=== PATIENT | female | born 1985 | race African-American/Black ===

== ENCOUNTER 2018-02-21 12:53 | Emergency (ER) | payer OTHER ==
[2018-02-21 13:15] VITALS: BMI 37.5
--- NOTE | 2018-02-21 13:50 | PDOC ---
History of Present Illness - General Chief Complaint: Chest Pain Stated Complaint: CHEST PAIN Time Seen by Provider: 02/21/18 13:26 History Source: Patient Exam Limitations: No Limitations - History of Present Illness Initial Comments: This is a 32 YOF with h/o prior DVT and asthma who p/w sharp chest pain coming in short-lived twinges, too many episodes to count, for the past two days, with associated rapid palpitations. The pain twinges come on at random times throughout the day and are not made better or worse by activity, laying down flat, rest, or other factors. She denies any SOB, lightheadedness, GARCÍA, n/t/ focal weakness, f/c/n/v/d/c, abdominal pain, leg pain/swelling, skin changes, strange taste in her mouth, or other symptoms. She has never had symptoms like this before. She was seen at the [facility] ED yesterday, had labs and an EKG , and was discharged home per her report. She is not on OCPs or exogenous estrogen and her LMP was in December 2017 (states she is very irregular). She is not sexually active over the past month or so. She denies recent surgery, immobility , illness, hemoptysis, or other risk factors. Past History - Past Medical History Allergies/Adverse Reactions: Allergies Allergy/AdvReac Type Severity Reaction Status Date / Time iodine Allergy Mild Hives Verified 02/21/18 13:15 seafood Allergy Mild Hives Uncoded 02/21/18 13:15 Home Medications: Ambulatory Orders Topiramate [Topamax] 25 mg PO HS 02/21/18 Topiramate [Topamax] 100 mg PO DAILY 02/21/18 COPD: No Other medical history: brain aneursym - Suicide/Smoking/Psychosocial Hx Smoking History: Never smoked Have you smoked in the past 12 months: No Information on smoking cessation initiated: No Hx Alcohol Use: No Drug/Substance Use Hx: No Substance Use Type: None Review of Systems - Review of Systems Able to Perform ROS?: Yes Constitutional: No: Chills, Fever, Unexplained wgt Loss HEENTM: No: Nose Congestion, Throat Pain Respiratory: No: Cough, Shortness of Breath Cardiac (ROS): Yes: Chest Pain, Palpitations. No: Edema, Lightheadedness, Syncope ABD/GI: No: Constipated, Diarrhea, Nausea, Vomiting : No: Burning, Dysuria Musculoskeletal: Yes: Other (no leg swelling, no leg pain). No: Back Pain, Neck Pain Integumentary: No: Bruising, Rash Neurological: No: Headache, Numbness, Tingling, Weakness, Dizziness Endocrine: No: Unexplained Weight Gain, Unexplained Weight Loss *Physical Exam - Vital Signs Last Vital Signs Temp Pulse Resp BP Pulse Ox 98.7 F 72 20 124/73 99 02/21/18 19:35 02/21/18 19:35 02/21/18 19:35 02/21/18 19:35 02/21/18 19:35 - Physical Exam General Appearance: Yes: Nourished, Appropriately Dressed, Other (awake, alert, nontoxic, well appearing, answering questions appropriately, intermittently tearful). No: Apparent Distress HEENT: positive: EOMI, GE, Normal Voice, Hearing Grossly Normal. negative: Scleral Icterus (R), Scleral Icterus (L), Nasal Congestion Neck: positive: Trachea midline, Supple. negative: Tender, Rigid Respiratory/Chest: positive: Lungs Clear, Normal Breath Sounds. negative: Respiratory Distress, Crackles, Rhonchi, Stridor, Wheezing Cardiovascular: positive: Regular Rhythm, Regular Rate, S1, S2. negative: Edema , JVD, Murmur Gastrointestinal/Abdominal: positive: Normal Bowel Sounds, Soft. negative: Tender, Organomegaly, Pulsatile Mass, Guarding Musculoskeletal: positive: Normal Inspection. negative: Decreased Range of Motion, Vertebral Tenderness Extremity: positive: Normal Capillary Refill, Normal Inspection, Normal Range of Motion, Other (no calf circumference difference [id number], no palpable cord, no skin changes). negative: Tender, Cyanosis, Swelling, Calf Tenderness Integumentary: positive: Normal Color, Dry, Warm. negative: Erythema, Rash, Bruising Neurologic: positive: sql consultant II-XII NML intact, Fully Oriented, Alert, Normal Mood/ Affect, Normal Response, Motor Strength 5/5. negative: EOM Palsy, Facial Droop , Numbness, Sensory Deficit, Confused, Disoriented Heart Score/ECG Review #1 NSR, rate of 75, normal axis and intervals, no ST-T changes ED Treatment Course - LABORATORY CBC & Chemistry Diagram: 02/21/18 14:44 02/21/18 14:44 - ADDITIONAL ORDERS Additional order review: 02/21/18 14:44 RBC 5.27 H MCV 68.8 L MCHC 31.3 L RDW 14.3 MPV 10.4 Neutrophils % 70.6 Lymphocytes % 22.5 Monocytes % 6.7 Eosinophils % 0.1 Basophils % 0.1 - RADIOLOGY Radiology Studies Ordered: Category Date Time Status CHEST CTA [CT] Stat CT Scan 02/21/18 16:49 Completed DUPLEX VASCUL US-2LEGS [US] Stat Ultrasound 02/21/18 16:49 Completed - Medications Given in the ED: ED Medications Discontinued Medications Generic Name Dose Route Start Last Admin Trade Name Freq PRN Reason Stop Dose Admin Al Hydroxide/Mg Hydroxide 30 ml 02/21/18 14:58 02/21/18 15:16 Mylanta Oral Suspension - PO 02/21/18 14:59 30 ml ONCE ONE Administration Diphenhydramine HCl 50 mg 02/21/18 16:48 02/21/18 17:18 Benadryl Injection - IVPUSH 02/21/18 16:49 50 mg ONCE ONE Administration Famotidine/Sodium Chloride 20 50 mls @ 100 mls/hr 02/21/18 14:58 02/21/18 15: 16 mg/ Miscellaneous IVPB 02/21/18 15:27 100 mls/hr ONCE ONE Administration Ibuprofen 800 mg 02/21/18 20:36 02/21/18 20:45 Motrin - PO 02/21/18 20:37 800 mg ONCE ONE Administration Sodium Chloride 1,000 ml 02/21/18 14:04 02/21/18 14:58 Normal Saline - IV 02/21/18 14:05 1,000 ml ONCE ONE Administration Medical Decision Making - Medical Decision Making Adult female Pt with h/o multiple leg blood clots p/w chest pain. Initial Vital Signs Temp Pulse Resp BP Pulse Ox 98.3 F 83 17 110/68 100 02/21/18 13:10 02/21/18 13:10 02/21/18 13:10 02/21/18 13:10 02/21/18 13:10 Exam: As noted in Physical Exam section. DDX IBNLT: PE, ACS, pericarditis, tamponade, aortic dissection, AAA, PTX, esophageal tear, esophagitis (e.g. pill, infectious), esophageal stricture, esophageal FB, gastritis, PUD, pancreatitis, cholecystitis, cholangitis, colitis , bowel perforation, PNA/bronchitis, pleurisy, pleuritis, MVP, pulmonary HTN, musculoskeletal, panic/anxiety, etc. W/U ordered: CBCD CMP Mg Phos Lipase Troponin CK CKMB Coags T&S Blood gas UA UCx EKG CXR. TX ordered: Motrin, Maalox, Pepcid, IVF, Benadryl PE is less likely as patient has no hypoxia or tachycardia or SOB. HOWEVER given her reported prior h/o DVT she is appropriate for D-dimer, reassessment, considering chest CTA, EKG: Reviewed; results as noted in ECG Review section. Laboratory Tests 02/21/18 02/21/18 02/21/18 14:44 14:44 14:44 WBC 13.9 H RBC 5.27 H Hgb 11.3 Hct 36.3 MCV 68.8 L MCH 21.5 L MCHC 31.3 L RDW 14.3 Plt Count 180 MPV 10.4 Absolute Neuts (auto) 9.8 Neutrophils % 70.6 Lymphocytes % 22.5 Monocytes % 6.7 Eosinophils % 0.1 Basophils % 0.1 Nucleated RBC % 0 PT with INR INR D-Dimer Sodium 145 Potassium 4.6 Chloride 114 H Carbon Dioxide 21 Anion Gap 10 BUN 17 Creatinine 0.8 Creat Clearance w eGFR > 60 Random Glucose 143 H Calcium 8.9 Phosphorus 2.9 Total Bilirubin 0.3 AST 25 ALT 40 Alkaline Phosphatase 138 H Creatine Kinase 209 H Creatine Kinase Index 0.7 CK-MB (CK-2) 1.66 Troponin I < 0.02 B-Natriuretic Peptide 13.56 Total Protein 6.7 Albumin 3.3 L Lipase 131 Serum , Qual Blood Type Antibody Screen 02/21/18 02/21/18 02/21/18 14:44 14:44 14:44 WBC RBC Hgb Hct MCV MCH MCHC RDW Plt Count MPV Absolute Neuts (auto) Neutrophils % Lymphocytes % Monocytes % Eosinophils % Basophils % Nucleated RBC % PT with INR INR D-Dimer 991 H Sodium Potassium Chloride Carbon Dioxide Anion Gap BUN Creatinine Creat Clearance w eGFR Random Glucose Calcium Phosphorus Total Bilirubin AST ALT Alkaline Phosphatase Creatine Kinase Creatine Kinase Index CK-MB (CK-2) Troponin I B-Natriuretic Peptide Total Protein Albumin Lipase Serum , Qual Negative Blood Type A POSITIVE Antibody Screen Negative 02/21/18 16:10 WBC RBC Hgb Hct MCV MCH MCHC RDW Plt Count MPV Absolute Neuts (auto) Neutrophils % Lymphocytes % Monocytes % Eosinophils % Basophils % Nucleated RBC % PT with INR 12.20 INR 1.08 D-Dimer Sodium Potassium Chloride Carbon Dioxide Anion Gap BUN Creatinine Creat Clearance w eGFR Random Glucose Calcium Phosphorus Total Bilirubin AST ALT Alkaline Phosphatase Creatine Kinase Creatine Kinase Index CK-MB (CK-2) Troponin I B-Natriuretic Peptide Total Protein Albumin Lipase Serum , Qual Blood Type Antibody Screen D-dimer is elevated and thus patient needs chest CTA. Duplex BLE: no e/o DVT. Chest CTA: Nothing acute, no e/o PE. Reassessment: Exam benign, pain improved, patient wants to go home. Vital Signs Temperature 98.7 F 02/21/18 19:35 Pulse Rate 72 02/21/18 19:35 Respiratory Rate 20 02/21/18 19:35 Blood Pressure 124/73 02/21/18 19:35 O2 Sat by Pulse Oximetry (%) 99 02/21/18 19:35 DISCHARGE Cardiac enzymes are negative. On last reassessment VS are stable, Pts pain is resolved, and exam is benign. The Pts HEART score indicates they are low risk and do not require admission currently. Chest CTA is negative and Duplex BLE is negative. The Pt is appropriate for discharge with close outpatient follow up. They are comfortable with this plan and will follow up with their PCP in 1-3 days. Specific return precautions are discussed and they will come back to the ER if necessary. *DC/Admit/Observation/Transfer Diagnosis at time of Disposition: Chest pain Qualifiers: Chest pain type: unspecified Qualified Code(s): R07.9 - Chest pain, unspecified - Discharge Dispostion Disposition: HOME Condition at time of disposition: Stable Decision to Admit order: No - Referrals Referrals: Gavin Roque MD [Primary Care Provider] - - Patient Instructions Printed Discharge Instructions: DI for Chest Pain Additional Instructions: You were seen in the ER for chest pain. We did lab work on your blood and urine , an electrocardiogram, a leg ultrasound, and a chest CT scan, and we did not find any concerning abnormalities. Your symptoms improved with the medications we gave you in the ER. After our assessment, we do not believe you are having a medical emergency at this time, and we believe you are safe to go home. Take over the counter pain medications for your pain, as instructed on the medication label. Please follow up with your regular PCP doctor in 1-3 days. Call their clinic as soon as possible, tell them you were seen in the ER, and tell them you need an appointment. If you have any new or worsening symptoms, especially worsening chest pain, jaw pain, shoulder/arm pain, shortness of breath, sweats, nausea, loss of consciousness, palpitations, or other symptoms, please come back to the ER at any time (24 hours a day). If you are having severe or life threatening symptoms, or symptoms that make it unsafe to drive or have someone drive you, please call 911. - Post Discharge Activity
[2018-02-21] MEDS ORDERED: SODIUM CHLORIDE 0.9% 500 ML INFUS.BAG IV ONE (14:04)
--- NOTE | 2018-02-21 14:10 | PDOC ---
Attending Attestation - Resident Resident Name: Jazzy Metcalf - ED Attending Attestation I have performed the following: I have examined & evaluated the patient, The case was reviewed & discussed with the resident, I agree w/resident's findings & plan, Exceptions are as noted - HPI HPI: 02/21/18 14:09 32y F hx of remote DVT, asthma, presents with substernal cp, sharp, nonradiating , for the past 2-3 days. Pt deneis any fever/chills, cough, hemoptysis, leg swelling, leg pain, recent trauma, surgeries, extended travel, exogenous steroid use. Pt notes she went to another hosptial and had labs and ekg/cxr that was negative and was discharged home. Pt returns today because she is not feeling any better and notes it was difficult to sleep due to her tossing and turning. GENERAL: The patient is awake, alert, and fully oriented, Nontoxic - in no acute distress. HEAD: Normocephalic, atraumatic. EYES: extraocular movements intact, sclera anicteric, conjunctiva clear. ENT: Normal voice, Moist mucous membranes. NECK: Normal range of motion, supple LUNGS: Breath sounds equal, clear to auscultation bilaterally. No wheezes, no rhonchi, no rales. HEART: Regular rate and rhythm, normal S1 and S2 without murmur, rub or gallop. ABDOMEN: Soft, nontender, normoactive bowel sounds. No guarding, no rebound. . No CVA tenderness EXTREMITIES: Normal range of motion, no edema. Negative Homans sign, no calf tenderness. NEUROLOGICAL: No facial assymetry, Normal speech, PSYCH: Normal mood, normal affect. SKIN: Warm, Dry, normal turgor, Differential for the patient's symptoms includes possible muscular pain, gastritis, PE Pts PE risk is low per wells crtiera (+hx of DVT, 1.5pts) will obtain screening ddimer will obtain cxr, ekg, labs will reassess - Physicial Exam PE: 02/22/18 09:25 see abve - Medical Decision Making 02/21/18 15:27 pts dimer elevated to 900s will obtain CTA to r/o PE pt resting comfortably in stretcher 02/21/18 19:27 pts CTA negative for PE will dc the pt with pmd fu return precautions were discussed Heart Score/ECG Review - ECG Impressions Comment:: 02/21/18 15:45 Twelve-lead EKG was performed and reviewed by me. There is normal sinus rhythm with a normal rate. rate of 75 The axis is normal. The intervals are normal. There is normal R wave progression There are no ST or T wave abnormalities. Impression: Normal twelve-lead EKG
[2018-02-21] MEDS ORDERED: MAG HYDROX/AL HYDROX/SIMETH 30 ML UNIT-DOSE CUP PO ONE (14:58)
[2018-02-21] MEDS ORDERED: FAMOTIDINE 20 MG/50 ML IVPB 20 MG in PREMIX 50 IVPB ONE (14:58)
[2018-02-21] MEDS ORDERED: FAMOTIDINE 20 MG/50 ML IVPB 20 MG/50 ML MG IVPB ONE (15:17)
[2018-02-21] MEDS ORDERED: MAG HYDROX/AL HYDROX/SIMETH 30 ML UNIT-DOSE CUP ONE (15:17)
[2018-02-21 15:33] LABS: BASO % 0.1 % (0-2.0); EOS % 0.1 % (0-4.5); HEMATOCRIT 36.3 % (32.4-45.2); HEMOGLOBIN 11.3 GM/dL (10.7-15.3); LYMPH % 22.5 % (8-40); MCH 21.5 pg (25.7-33.7); MCHC 31.3 g/dl (32.0-36.0); MEAN CELL VOLUME 68.8 fl (80-96); MEAN PLT VOLUME 10.4 fl (7.5-11.1); MONO % 6.7 % (3.8-10.2); NEUT % 70.6 % (42.8-82.8); PLATELET COUNT 180 K/MM3 (134-434); RBC 5.27 M/mm3 (3.60-5.2); RDW 14.3 % (11.6-15.6); WHITE BLOOD COUNT 13.9 K/mm3 (4.0-10.0)
[2018-02-21 16:06] LABS: ALBUMIN 3.3 g/dl (3.4-5.0); ANION GAP 10 (8-16); BILIRUBIN,TOTAL 0.3 mg/dL (0.2-1.0); BLOOD UREA NITROGEN 17 mg/dL (7-18); CALCIUM 8.9 mg/dL (8.5-10.1); CHLORIDE 114 mmol/L (98-107); CO2 21 mmol/L (21-32); CREATININE 0.8 mg/dL (0.55-1.02); GLUCOSE,RANDOM 143 mg/dL (74-106); LIPASE 131 U/L (73-393); PHOSPHOROUS 2.9 mg/dL (2.5-4.9); SGPT/ALT 40 U/L (12-78); SODIUM 145 mmol/L (136-145); TOT PROT 6.7 g/dl (6.4-8.2)
[2018-02-21 16:07] LABS: ALK PHOS 138 U/L (45-117)
[2018-02-21 16:20] LABS: POTASSIUM 4.6 mmol/L (3.5-5.1); SGOT/AST 25 U/L (15-37)
[2018-02-21 16:25] LABS: N-TERMINAL BNP 13.56 pg/ml (5-125)
[2018-02-21 16:29] LABS: INR 1.08 (0.82-1.09); PROTHROMBIN TIME (PATIENT) 12.2 SEC (9.7-13.0)
[2018-02-21 19:36] VITALS: BP 124/73; PULSE 72; TEMP 98.7
[2018-02-21] MEDS ORDERED: IBUPROFEN 400 MG TABLET (FP) PO ONE ×2 (20:36→20:42)
--- NOTE | 2018-02-22 08:34 | EKG ---
Test Reason : Blood Pressure : / mmHG Vent. Rate : 075 BPM Atrial Rate : 075 BPM P-R Int : 142 ms QRS Dur : 078 ms QT Int : 394 ms P-R-T Axes : 039 010 027 degrees QTc Int : 439 ms NORMAL SINUS RHYTHM NORMAL ECG NO PREVIOUS ECGS AVAILABLE Confirmed by JACKIE HERRERA MD ([id number]) on 02/22/2018 8:34:18 AM Referred By: Confirmed By:JACKIE HERRERA MD
== END 2018-02-21 20:53 | disposition home or self-care (01) ==
LOC: JERFT 12:53 → JER 12:53
PROC: 3E033GC Introduction of Other Therapeutic Substance into Peripheral Vein, Percutaneous Approach (ICD-10-PCS; principal; 2018-02-21)
PROC: 3E033GC Introduction of Other Therapeutic Substance into Peripheral Vein, Percutaneous Approach (ICD-10-PCS; 2018-02-21)
DX: R07.9 Chest pain, unspecified (principal); Z86.718 Personal history of other venous thrombosis and embolism; Z86.79 Personal history of other diseases of the circulatory system
CPT/HCPCS: 36415; 71275-TC; 80053; 82550; 82553; 83690; 83880; 84100; 84484; 84703; 85025; 85379; 85610; 86850; 86900; 86901; 93005; 93010; 93970-TC; 96365; 96375; 99285-25

== ENCOUNTER 2018-12-13 21:58 | Emergency (ER) | payer OTHER ==
[2018-12-13 22:07] VITALS: BP 131/82; PULSE 80; TEMP 97.6; BMI 37.5
[2018-12-13] MEDS ORDERED: IBUPROFEN 400 MG TABLET (FP) PO ONE ×2 (22:10→22:17)
--- NOTE | 2018-12-13 22:21 | PDOC ---
History of Present Illness - General Chief Complaint: Injury Stated Complaint: FELL IN TUB Time Seen by Provider: 12/13/18 22:05 History Source: Patient - History of Present Illness Occurred: reports: this evening Pain Location: reports: back, face Method of Injury: Yes: fall Past History - Past Medical History Allergies/Adverse Reactions: Allergies Allergy/AdvReac Type Severity Reaction Status Date / Time iodine Allergy Mild Hives Verified 02/21/18 13:15 seafood Allergy Mild Hives Uncoded 02/21/18 13:15 Home Medications: Ambulatory Orders Topiramate [Topamax] 25 mg PO HS 02/21/18 Topiramate [Topamax] 100 mg PO DAILY 02/21/18 COPD: No Diabetes: Yes (NIDDM) Other medical history: Cerebral anneurysm - Suicide/Smoking/Psychosocial Hx Smoking History: Never smoked Have you smoked in the past 12 months: No Hx Alcohol Use: No Drug/Substance Use Hx: No Substance Use Type: None Review of Systems - Review of Systems ABD/GI: No: Nausea, Vomiting, Abdominal cramping Neurological: No: Headache, Dizziness *Physical Exam - Vital Signs Last Vital Signs Temp Pulse Resp BP Pulse Ox 97.6 F 80 20 131/82 99 12/13/18 22:04 12/13/18 22:04 12/13/18 22:04 12/13/18 22:04 12/13/18 22:04 - Physical Exam General Appearance: Yes: Appropriately Dressed. No: Apparent Distress HEENT: positive: Normal Voice, Other (minor contusion to L cheek face, no sig swelling and no crepitus or step offs, able to open mouth fully) Neck: positive: Supple Respiratory/Chest: negative: Respiratory Distress Gastrointestinal/Abdominal: positive: Soft. negative: Tender Musculoskeletal: positive: Vertebral Tenderness (to L lower back, no midline ttp ) Extremity: positive: Normal Inspection Integumentary: positive: Dry, Warm Neurologic: positive: Fully Oriented, Alert, Normal Mood/Affect Medical Decision Making - Medical Decision Making 12/13/18 22:09 33-year-old female, history of diabetes, here with multiple injuries s/p after slip and fall in bathtub tonight. States mostly fell onto her L side and was able to use hands to break fall. Complaining of left lower back pain and has some L facial pain. Denies head injury, LOC, headache, dizziness, blurry vision , nausea or vomiting. No neck pain. Patient ambulatory in ED. Patient well- appearing and stable with minor injuries on exam. No evidence of serious injury at this time and no need for imaging. Will dc with [id number] pain control as needed *DC/Admit/Observation/Transfer Diagnosis at time of Disposition: Facial contusion Qualifiers: Encounter type: initial encounter Qualified Code(s): S00.83XA - Contusion of other part of head, initial encounter Low back strain Qualifiers: Encounter type: initial encounter Qualified Code(s): S39.012A - Strain of muscle, fascia and tendon of lower back, initial encounter - Discharge Dispostion Disposition: HOME Condition at time of disposition: Good - Referrals - Patient Instructions Printed Discharge Instructions: Muscle Strain Additional Instructions: Based on your exam, there was no evidence of serious injury at this time. Take Motrin or Tylenol for pain as needed and follow-up with her doctor if pain persists - Post Discharge Activity
== END 2018-12-13 22:19 | disposition home or self-care (01) ==
LOC: JERFT 21:58
DX: S00.83XA Contusion of other part of head, initial encounter (principal); S39.012A Strain of muscle, fascia and tendon of lower back, initial encounter; W18.2XXA Fall in (into) shower or empty bathtub, initial encounter; Y93.E1 Activity, personal bathing and showering; Y92.002 Bathroom of unspecified non-institutional (private) residence as the place of occurrence of the external cause; E11.9 Type 2 diabetes mellitus without complications; I67.1 Cerebral aneurysm, nonruptured
CPT/HCPCS: 99281-25

== ENCOUNTER 2019-03-13 14:53 | Emergency (ER) | payer OTHER | END 2019-03-13 22:04 | disposition short-term general hospital (02) | LOC: JER 14:53 ==

== ENCOUNTER 2020-04-17 19:18 | Emergency (ER) | payer OTHER ==
[2020-04-17 19:23] VITALS: BP 130/84; PULSE 98; TEMP 98.5; BMI 36.1
--- OUTSIDE RECORDS SUMMARY | 2020-04-17 19:43 | XMS ---
:1985 Author Organization [facility] Care Team Providers Name Role Phone Sol Olmedo Unavailable [email or web address]. [facility] Sol Olmedo Unavailable [email or web address]. [facility] Sol Olmedo Unavailable [email or web address]. [facility] Sol Olmedo Unavailable [email or web address]. 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, Rosa Unavailable Rosalina POULTRY FARMWORKER, Rosa Unavailable Rosalina POULTRY FARMWORKER, Rosa Unavailable ED STAFF PHYSICIANJANICE Unavailable Unavailable JANEEN DAMON Unavailable Unavailable ED STAFF PHYSICIAN, STAFF Unavailable Unavailable FRANCISCA DOBBS Unavailable Unavailable TASHI Dent Unavailable Unavailable Fay Madison MD Unavailable Unavailable Beatriz Madison MD Unavailable Unavailable Beatriz Madison MD Unavailable Unavailable Beatriz Madison MD Unavailable Unavailable Beatriz Madison MD Unavailable Unavailable Beatriz Madison MD Unavailable Unavailable Beatriz Madison MD Unavailable Unavailable Beatriz Madison MD Unavailable Unavailable Beatriz Madison MD Unavailable Unavailable Beatriz Madison MD Unavailable Unavailable Beatriz Madison MD Unavailable Unavailable Beatriz Madison MD Unavailable Unavailable Beatriz Madison MD Unavailable Unavailable Beatriz Madison MD Unavailable Unavailable Beatriz Madison MD Unavailable Unavailable ED STAFF PHYSICIAN Unavailable Unavailable ED STAFF PHYSICIAN Unavailable Unavailable PEYMAN BOWMAN Unavailable Unavailable Re-disclosure Warning The records that you are about to access may contain information from federally- assisted alcohol or drug abuse programs. If such information is present, then the following federally mandated warning applies: This information has been disclosed to you from records protected by federal confidentiality rules (42 CFR part 2). The federal rules prohibit you from making any further disclosure of this information unless further disclosure is expressly permitted by the written consent of the person to whom it pertains or as otherwise permitted by 42 CFR part 2. A general authorization for the release of medical or other information is NOT sufficient for this purpose. The Federal rules restrict any use of the information to criminally investigate or prosecute any alcohol or drug abuse patient.The records that you are about to access may contain highly sensitive health information, the redisclosure of which is protected by Article 27-F of the [facility] Public Health law. If you continue you may haveaccess to information: Regarding HIV / AIDS; Provided by facilities licensed or operated by the [facility] Office of Mental Health; or Provided by the [facility] Office for People With Developmental Disabilities. If such information is present, then the following [facility] mandated warning applies: This information has been disclosed to you from confidential records which are protected by state law. State law prohibits you from making any further disclosure of this information without the specific written consent of the person to whom it pertains, or as otherwise permitted by law. Any unauthorized further disclosure in violation of state law may result in a fine or alf sentence or both. A general authorization for the release of medical or other information is NOT sufficient authorization for further disclosure. Encounters Encounter Providers Location Date Indications Data Source(s ) Emergency Attender: LORI ED H 04/09/2020 [facility] STAFF 03:59:00 PM EDT Medical C enter PHYSICIANAttender: - 04/09/2020 STAFF ED STAFF 06:51:00 PM EDT PHYSICIANAdmitter: LORI ED STAFF PHYSICIAN Patient discharged. Attender: [facility] 04/07/2020 JANE A[facility] 01:33:00 PM EDT [facility] 04/07/2020 [place]) 01:33:00 PM EDT Outpatient Attender: FRANCISCA Rosario 03/08/2020 [facility] BIGG SOL 11:02:00 AM EDT Medic al Center MAdmitter: FRANCISCA HORTON MReferrer: FRANCISCA Howard OutpatientOFFICE/OU Attender: Sol 03/08/2020 [facility] ([facility] VISIT, YASH Bigg 11:02:00 AM EDT - [facility] 03/08/2020 [place]) 11:02:00 AM EDT Outpatient 03/08/2020 [facility] 10:52:00 AM EDT Medical C enter Outpatient 03/08/2020 [facility] 12:00:00 AM EDT Medical C enter Emergency Attender: LORI Rosario 03/07/2020 [facility] ED STAFF 05:44:00 PM EDT - [facility] PHYSICIANAttender 03/07/2020 : STAFF ED STAFF 09:20:00 PM EDT PHYSICIANAdmitter : LORI ED STAFF PHYSICIAN Patient discharged. Inpatient Attender: JANEEN Rosario-HAL6 02/09/2020 08:06:00 [facility] CORBIN ABRAMSHAttender: PM EDT - 02/12/[address] [place] [address] STAFF ED STAFF 02:38:00 PM EDT PHYSICIANAdmitter: JANEEN ABRAMSHReferrer: JANEEN BROUSSARD Patient discharged. Emergency Attender: JANICE ED STAFF 02/07/2020 02:04:00 AM [facility] PHYSICIANAttender: STAFF ED EDT - 02/07/2020 [facility] STAFF PHYSICIANAdmitter: 11:25:00 AM EDT JANICE ED STAFF PHYSICIAN Patient discharged. 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 Emergency Attender: JANICE ED STAFF H 08/16/2019 08:40:00 AM [facility] PHYSICIANAttender: STAFF ED EST - 08/16/2019 [facility] STAFF PHYSICIANAdmitter: 10:47:00 AM EST JANICE ED STAFF PHYSICIAN Patient discharged. Emergency Attender: TASHI ECHEVARRIA 07/16/2019 08:28:00 PM [facility] PAttender: STAFF ED STAFF EST - 07/16/2019 [facility] PHYSICIANAdmitter: TASHI 10:20:00 PM EST LINDA P Patient discharged. Emergency Attender: TASHI ECHEVARRIA 07/16/2019 10:12:00 AM [facility] PAttender: STAFF ED STAFF EST - 07/16/2019 [facility] PHYSICIANAdmitter: TASHI 01:42:00 PM EST ILNDA P Patient discharged. Emergency Attender: KAYLAH ED STAFF H 06/09/2019 04:13:00 PM [facility] PHYSICIANAttender: STAFF ED EST - 06/09/2019 [facility] STAFF PHYSICIANAdmitter: KAYLAH 06:48:00 PM EST ED STAFF PHYSICIAN Patient discharged. Outpatient<td Attender: Odilia 05/17/2019 Epilepsy [facility] ID="encounterTypeDescriptionID1">COMPLETE Rosa Frey 10:30:00 AM Intractable Without ([place] PHYSICAL EXAM</td><td>Rosa Rosalina [facility] Center EDT - [facility]</td><td>Odilia Frey 05/17/2019 [facility]</td><td>05/17/2019</td><td><content 05:0 5:36 PM [facility] Center) ID="encounterDiagnosisID1-0">Diabetes EDT IntermittentRoutine Mellitus Type 2 - Uncomplicated, His tory & Physical Controlled</content>, <content Adult Without ID="encounterDiagnosisID1-1">Routine Abnormal History & Physical Adult Without Abnormal FindingsDiabetes Findings</content>, <content Mellitu s Type 2 - ID="encounterDiagnosisID1-2">Asthma Mild Uncomplicated, Intermittent</content>, <content Con trolledEpilepsy ID="encounterDiagnosisID1-3">Epilepsy Not Not Intractable Intractable Without Status Without S tatus Epilepticus</content></td> Epileptic usAsthma Mild IntermittentRoutine History & Physical Adult Without Abnormal FindingsDiabetes Mellitus Type 2 - Uncomplicated, ControlledEpilepsy Not Intractable Without Status EpilepticusAsthma Mild IntermittentRoutine History & Physical Adult Without Abnormal FindingsDiabetes Mellitus Type 2 - Uncomplicated, Controlled Epilepsy Not Intractable Without Status Epilepticus Asthma Mild Intermittent Routine History & Physical Adult Without Abnormal Findings Diabetes Mellitus Type 2 - Uncomplicated , Controlled Epilepsy Not Intractable Without Status Epilepticus Asthma Mild Intermittent Routine History & Physical Adult Without Abnormal Findings Diabetes Mellitus Type 2 - Uncomplicated , Controlled Epilepsy Not Intractable Without Status Epilepticus Asthma Mild Intermittent Routine History & Physical Adult Without Abnormal Findings Diabetes Mellitus Type 2 - Uncomplicated , Controlled Emergency H 04/21/2019 08:08:00 PM EDT - [address] [place] [address] 11:57:00 PM EDT Patient discharged. Emergency H 04/19/2019 11:16:00 PM EDT - [address] [place] [address] 03:28:00 AM EDT Patient discharged. Emergency H 04/15/2019 07:01:00 PM EDT - [address] [place] [address] 10:43:00 PM EDT Patient discharged. Emergency H 04/03/2019 11:10:00 AM EDT - [address] [place] [address] 03:42:00 PM EDT Patient discharged. Emergency H 03/29/2019 03:16:00 PM EDT - [address] [place] [address] 05:46:00 PM EDT Patient discharged. Emergency H 03/10/2019 05:49:00 PM EDT - [address] [place] [address] 10:27:00 PM EDT Patient discharged. Emergency H 02/27/2019 07:42:00 PM [facility] EDT [place] Emergency Attender: MANNY MORLEY H-HAL6 02/18/2019 [facility]:04[facility] [place] [facility] 11:26:10 [facility] H 02/02/2019 06:57:00 PM [facility] EDT [place] Outpatient 01/29/2019 01:58:29 PM GS I ([facility] ) Outpatient 01/12/2019 12:20:04 PM GS I ([facility] ) Patient admitted. Emergency H 01/08/2019 08:45:00 PM [facility] EDT [place] Emergency H 12/12/2018 08:08:00 PM [facility] EDT [place] Emergency Attender: KAYLAH ED STAFF H 12/02/2018 03:50:00 PM [facility] EDT Center Emergency H 11/24[facility] [place] [facility] 12:22:30 PM GS I ([facility] ) Outpatient 2018 11:52:25 AM GS I ([facility] ) Emergency H 11/18/2018 01:10:00 PM [facility] EDT [place] Outpatient 11/16/2018 10:12:52 AM [facility] I ([facility] ) Emergency H 11/14/2018 05:48:00 PM [facility] EDT [place] Outpatient 11/11/2018 02:56:11 PM GS I ([facility] ) Outpatient 11/03/2018 04:34:25 PM [facility] I ([facility] ) Emergency H 10/22/2018 01:42:00 PM [facility] EDT [place] Emergency H 09/30/2018 03:39:00 PM [facility] Immunizations Vaccine Date Status Description Data Source(s) New in 2011. IIV4 04/13/2018 completed [facility] Medical 10:20:00 AM EDT Center pneumococcal 04/13/2018 completed [facility] polysaccharide PPV23 10:20:00 AM EDT Cent er Medications Medication Brand Start Product Dose Route Administrative Pharmacy [facility] Indications Reaction Description Data Name Date Form Instructions Instructions Source(s) Eliquis 5MG Eliqui 10/14/ UNIT active Eliquis RAE Oral Tablet s 5MG 2018 ([facility] Oral 12:00: Juni Tablet 00 AM [facility]) gabapentin Gabape 10/14/ UNIT 1 active Gabapent in RAE 300 MG Oral ntin 2018 ([facility] Capsule 300MG 12:00: Juni Gabapentin Oral 00 AM [facility] 300MG Oral Capsul EDT od [facility] Capsule e Center) Levetiracet levETI 05/17/ UNIT 1 active levETIR Aceta RAE am 500 MG RAceta 2018 m ([facility] Oral Tablet m 12:00: Juni levETIRAcet 500MG 00 AM [facility] am 500MG Oral EDT [facility] Oral Tablet Tablet Center ) Famotidine famoti 1 complet Deisy t 40 MG Oral dine ed Liv Tablet 40 mg Medical famotidine Tablet Center 40 mg , Tablet, Ordere Ordered By: d By: merna CavazosPDirectio Ostine ns: 1 , tablet oral FNPDir daily at ection bedtime s: 1 tablet oral daily at bedtim e Metformin metFOR 1 complet [facility] hydrochlori MIN ed Liv de 1000 MG 1,000 Medical Oral Tablet mg Center metFORMIN Tablet 1,000 mg , Tablet, Ordere Ordered By: d By: merna CavazosPDsherri Paganine ns: 1 , tablet oral FNPDir twice a day ection s: 1 tablet oral twice a day 120 ACTUAT budeso 2 complet Symbicort [facility] Budesonide nide-f ed Ilv 0.16 ormote Medical MG/ACTUAT / rol Center formoterol (Symbi fumarate concha) 0.0045 160 MG/ACTUAT mcg-4. Metered 5 Dose mcg/Ac Inhaler tuatio [Symbicort] n HFA budesonide- Aeroso formoterol l (Symbicort) Inhale 160 mcg-4.5 r, mcg/Actuati Ordere on HFA d By: Aerosol Anteno Inhaler, r Ordered By: Clive Asencio, FNPDir FNPDirectio ection ns: 2 puff s: 2 by puff inhalation by twice a day inhala tion twice a day 200 ACTUAT albute 2 complet Proventil [facility] Albuterol rol ed HFA Liv 0.09 sulfat Medical MG/ACTUAT e Center Metered (Prove Dose ntil Inhaler HFA) [Proventil] 90 mcg albuterol HFA sulfate Aeroso (Proventil l HFA) 90 mcg Inhale HFA Aerosol r, Inhaler, Ordere Ordered By: d By: merna Cavazos FNirectio Ostine ns: 2 puff , by FNPDir inhalation ection four times s: 2 daily PRN puff shortness by of breath inhala tion four times daily PRN shortn ess of breath Folic Acid foLIC 1 complet Saint 1 MG Oral Acid 1 ed Liv Tablet mg Medical foLIC Acid Tablet Center 1 mg , Tablet, Ordere Ordered By: d By: merna Cavazos FNPDirectio Ostine ns: 1 , tablet oral FNPDir daily ection s: 1 tablet oral daily ferrous ferrou 1 complet [facility] sulfate 325 s ed Liv MG Delayed sulfat Medical Release e 325 Center Oral Tablet mg (65 ferrous mg sulfate 325 iron) mg (65 mg tablet iron) ,delay tablet,arnaud ed yed release releas (/EC), e Ordered By: (/Clive Carranza Ordere FNMarie d By: ns: 1 Anteno tablet oral r daily Ostine , FNPDir ection s: 1 tablet oral daily montelukast og 1 complet Lionel nt 10 MG Oral ukast ed Liv Tablet 10 mg Medical montelukast Tablet Center 10 mg , Tablet, Ordere Ordered By: d By: merna Cavazos FNPDirectio Ostine ns: 1 , tablet oral FNPDir daily ection s: 1 tablet oral daily Albuterol albute 3 mL complet Saint 0.83 MG/ML rol ed Liv Inhalant sulfat Medical Solution e 2.5 Center albuterol mg/3 sulfate 2.5 mL mg/3 mL (0.083 (0.083 %) %) Solution Soluti for on for Nebulizatio Nebuli n, Ordered zation By: Jd Hess Ordere PADirection d By: s: 3 mL by Jimena inhalation Jd, every six PADire hours PRN ctions shortness : 3 mL of breath by inhala tion every six hours PRN shortn ess of breath gabapentin gabape complet Deisy t 300 MG Oral ntin ed Liv Capsule 300 mg Medical gabapentin Capsul Center 300 mg e Capsule Prednisone predni 2 complet Deisy t 20 MG Oral SONE ed Liv Tablet 20 mg Medical predniSONE Tablet Center 20 mg , Tablet, Ordere Ordered By: d By: Jimena Jimena Green, Green, PADirection PADire s: 2 tablet ctions oral daily : 2 tablet oral daily montelukast og complet Lionel nt 10 MG Oral ukast ed Liv Tablet 10 mg Medical montelukast Tablet Center 10 mg Tablet Guaifenesin guaiFE 10 mL complet Sa int 20 MG/ML Nesin ed Liv Oral 100 Medical Solution mg/5 Center guaiFENesin mL 100 mg/5 mL Liquid Liquid, , Ordered By: Ordere Antenor d By: Clive Anteno FNPDirectio r ns: 10 mL Ostine oral every , four hours FNPDir PRN cough ection s: 10 mL oral every four hours PRN cough apixaban 5 apixab complet Eliquis S aint MG Oral an ed Liv Tablet (Eliqu Medical [Eliquis] is) 5 Center apixaban mg (Eliquis) 5 Tablet mg Tablet 120 ACTUAT budeso 2 complet Symbicort [facility] Budesonide nide-f ed Liv 0.16 ormote Medical MG/ACTUAT / rol Center formoterol (Symbi fumarate concha) 0.0045 160 MG/ACTUAT mcg-4. Metered 5 Dose mcg/Ac Inhaler tuatio [Symbicort] n HFA budesonide- Aeroso formoterol l (Symbicort) Inhale 160 mcg-4.5 r, mcg/Actuati Ordere on HFA d By: Aerosol Eric InhalerHayleysy Ordered By: Collin Rossintyrray FNPDir FNPDirectio ection ns: 2 puff s: 2 by puff inhalation by twice a day inhala tion twice a day compressorD complet [facility] irection: ed [facility] nebulizer Medical compressor [facility] nebulized treatments Prednisone predni 2 complet Deisy t 20 MG Oral SONE ed Liv Tablet 20 mg Medical predniSONE Tablet Center 20 mg , Tablet, Ordere Ordered By: d By: Kemi Drummond ns: 2 re, tablet oral FNPDir daily ection s: 2 tablet oral daily Amoxicillin amoxic 1 complet Lionel nt 500 MG / illin- ed Liv Clavulanate pot Medical 125 MG Oral clavul Center Tablet anate amoxicillin 500 -pot mg-125 clavulanate mg 500 mg-125 Tablet mg Tablet, , Ordered By: Natalie quesada By: Maryann Kennedy MDDirection ng s: 1 tablet Li, oral twice MDDire a day ctions : 1 tablet oral twice a day insulin insuli 10 U complet Levemir Deisy t detemir 100 n ed U-100 Liv UNT/ML detemi Insulin Medical Injectable r Center Solution U-100 [Levemir] (Levem insulin ir detemir U-100 U-100 Insuli (Levemir n) 100 U-100 unit/m Insulin) L 100 unit/mL Soluti Solution, on, Ordered By: Natalie quesada By: Scarlet DuffyPDirectcely r ns: 10 unit Ostine subcutaneou , s twice a FNPDir day ection s: 10 unit subcut aneous twice a day tramadol traMAD 1 complet [facility] hydrochlori ol 50 ed Liv de 50 MG mg Medical Oral Tablet Tablet Center traMADol 50 , mg Tablet, Ordere Ordered By: d By: Linda Dent Linda Tashi, P MDDirection Tinsay s: 1 tablet , oral every MDDire eight hours ctions PRN pain : 1 tablet oral every eight hours PRN pain Levetiracet leveti 1 complet Lionel nt am 500 MG raceta ed Liv Oral Tablet m 500 Medical levetiracet mg Center am 500 mg Tablet Tablet, , Ordered By: Natalie quesada By: Scarlet Duffy r ns: 1 Ostine tablet oral , twice a day FNPDir ection s: 1 tablet oral twice a day atorvastati atorva 1 complet Lionel nt n 20 MG statin ed Liv Oral Tablet 20 mg Medical atorvastati Tablet Center n 20 mg , Tablet, Ordere Ordered By: d By: merna Cavazos FNPDirectio Ostine ns: 1 , tablet oral FNPDir daily at ection bedtime s: 1 tablet oral daily at bedtim e fluticasone complet Wixela Inh ub [facility] propion-jerson ed Liv meterol Medical ([facility] Center Inhub) 500 mcg-50 mcg/Dose blister with device albuterol complet [facility] sulfate 2.5 ed Liv mg/3 mL Medical (0.083 %) Center Solution for Nebulizatio n Ibuprofen ibupro 1 complet [facility] 600 MG Oral fen ed Liv Tablet 600 mg Medical ibuprofen Tablet Center 600 mg , Tablet, Ordere Ordered By: d By: Jd Webb PADirection PADire s: 1 tablet ctions oral every : 1 eight hours tablet PRN pain oral every eight hours PRN pain Ranitidine raniti 1 complet Deisy t 150 MG Oral dine ed Liv Tablet HCl Medical ranitidine 150 mg Center HCl 150 mg Tablet Tablet, , Ordered By: Natalie Reed d By: Hunter Olivera ns: 1 Penar, tablet oral FNPDir daily ection s: 1 tablet oral daily 200 ACTUAT ipratr 2 complet AtroVENT HFA Saint Ipratropium opium ed Liv Heber bromid Medical 0.017 e Center MG/ACTUAT (AtroV Metered ENT Dose HFA) Inhaler 17 [Atrovent] mcg/Ac ipratropium tuatio bromide n HFA (AtroVENT Aeroso HFA) 17 l mcg/Actuati Inhale on HFA r, Aerosol Ordere Inhaler, d By: Ordered By: Peyamn Ramos MDDire MDDirection ctions s: 2 puff : 2 by puff inhalation by every six inhala hours PRN tion shortness every of breath six hours PRN shortn ess of breath Prednisone predni 2 complet Deisy t 20 MG Oral SONE ed Liv Tablet 20 mg Medical predniSONE Tablet Center 20 mg , Tablet, Ordere Ordered By: d By: evens Mandel, ns: 2 FNPDir tablet oral ection daily s: 2 tablet oral daily 120 ACTUAT budeso 2 complet Symbicort [facility] Budesonide nide-f ed Liv 0.16 ormote Medical MG/ACTUAT / rol Center formoterol (Symbi fumarate concha) 0.0045 160 MG/ACTUAT mcg-4. Metered 5 Dose mcg/Ac Inhaler tuatio [Symbicort] n HFA budesonide- Aeroso formoterol l (Symbicort) Inhale 160 mcg-4.5 r, mcg/Actuati Ordere on HFA d By: Aerosol Manny InhalPeyman umaña, Ordered By: Sherman Bowman ctions Jin, : 2 MDDirection puff s: 2 puff by by inhala inhalation tion twice a day twice a day Cyclobenzap cyclob 1 complet Lionel nt rine enzapr ed Liv hydrochlori ine 10 Medica l de 10 MG mg Center Oral Tablet Tablet cyclobenzap , rine 10 mg Ordere Tablet, d By: Ordered By: Jd Webb PADire PADirection ctions s: 1 tablet : 1 oral three tablet times a day oral PRN three pain-modera times te a day PRN pain-m oderat e Diphenhydra diphen 1 complet Lionel nt mine hydram ed Liv Hydrochlori ine Medical de 25 MG HCl 25 Center Oral mg Capsule Capsul diphenhydra e, mine HCl 25 Ordere mg Capsule, d By: Ordered By: Joselin Blount, FNPDirectio FNPDir ns: 1 ection capsule s: 1 oral every capsul six hours e oral PRN itching every six hours PRN itchin g Ondansetron ondans complet Lionel nt 4 MG Oral etron ed Liv Tablet HCl 4 Medical ondansetron mg Center HCl 4 mg Tablet Tablet Metformin metFOR complet [facility] hydrochlori MIN ed Liv de 1000 MG 1,000 Medical Oral Tablet mg Center metFORMIN Tablet 1,000 mg Tablet Prednisone predni 2 complet Deisy t 20 MG Oral SONE ed Liv Tablet 20 mg Medical predniSONE Tablet Center 20 mg , Tablet, Ordere Ordered By: d By: Alan Bobo MDDirection , s: 2 tablet MDDire oral daily ctions : 2 tablet oral daily Levetiracet leveti complet Lionel nt am 500 MG raceta ed Liv Oral Tablet m 500 Medical levetiracet mg Center am 500 mg Tablet Tablet Levetiracet leveti 1 complet KePPRA S aint am 500 MG raceta ed Liv Oral Tablet m Medical [Keppra] (KePPR Center levetiracet A) 500 am (KePPRA) mg 500 mg Tablet Tablet, , Ordered By: Natalie Dozier d By: Maryann Kennedy MDDirection ng s: 1 tablet Li, oral twice MDDire a day ctions : 1 tablet oral twice a day gabapentin gabape 2 complet Deisy t 400 MG Oral ntin ed Liv Capsule 400 mg Medical gabapentin Capsul Center 400 mg e, Capsule, Ordere Ordered By: d By: aguilar Fontanez MDDirection Li, s: 2 MDDire capsule ctions oral twice : 2 a day every capsul morning and e oral at bedtime twice a day every mornin g and at bedtim e Prednisone predni 6 complet Deisy t 10 MG Oral SONE ed Liv Tablet 10 mg Medical predniSONE Tablet Center 10 mg , Tablet, Ordere Ordered By: d By: Peyman Ramos MDDirection MDDire s: 6 tablet ctions oral daily : 6 tablet oral daily Famotidine famoti 1 complet Deisy t 40 MG Oral dine ed Liv Tablet 40 mg Medical famotidine Tablet Center 40 mg , Tablet, Ordere Ordered By: d By: Jose Sidhu MDDirection MDDire s: 1 tablet ctions oral daily : 1 at bedtime tablet oral daily at bedtim e atorvastati atorva 1 complet Lionel nt n 20 MG statin ed Liv Oral Tablet 20 mg Medical atorvastati Tablet Center n 20 mg , Tablet, Ordere Ordered By: d By: Jose Sidhu MDDirection MDDire s: 1 tablet ctions oral daily : 1 at bedtime tablet oral daily at bedtim e Levetiracet leveti 1 complet Lionel nt am 500 MG raceta ed Liv Oral Tablet m 500 Medical levetiracet mg Center am 500 mg Tablet Tablet, , Ordered By: Natalie quesada By: Traci Garciar, s: 1 tablet MDDire oral twice ctions a day : 1 tablet oral twice a day insulin insuli 10 U complet Levemir Deisy t detemir 100 n ed U-100 Liv UNT/ML detemi Insulin Medical Injectable r Center Solution U-100 [Levemir] (Levem insulin ir detemir U-100 U-100 Insuli (Levemir n) 100 U-100 unit/m Insulin) L 100 unit/mL Soluti Solution, on, Ordered By: Natalie quesada By: Traci Garciar, s: 10 unit MDDire subcutaneou ctions s twice a : 10 day unit subcut aneous twice a day montelukast og 1 complet Ilonel nt 10 MG Oral ukast ed Liv Tablet 10 mg Medical montelukast Tablet Center 10 mg , Tablet, Ordere Ordered By: d By: Traci Garcia, Jose, MDDirection MDDire s: 1 tablet ctions oral daily : 1 tablet oral daily Metformin metFOR 1 complet [facility] hydrochlori MIN ed Liv de 500 MG 500 mg Medical Oral Tablet Tablet Center metFORMIN , 500 mg Ordere Tablet, d By: Ordered By: Traci Garcia, Jose, MDDire MDDirection ctions s: 1 tablet : 1 oral daily tablet oral daily tramadol traMAD 1 complet [facility] hydrochlori ol 50 ed Liv de 50 MG mg Medical Oral Tablet Tablet Center traMADol 50 , mg Tablet, Ordere Ordered By: d By: ray Phelan MDDirection Fernando s: 1 tablet , oral every MDDire six hours ctions PRN pain : 1 tablet oral every six hours PRN pain ferrous ferrou 1 complet [facility] sulfate 325 s ed Liv MG Delayed sulfat Medical Release e 325 Center Oral Tablet mg (65 ferrous mg sulfate 325 iron) mg (65 mg tablet iron) ,delay tablet,arnaud ed yed release releas (/EC), e Ordered By: (/EC Traci ), Jose, Ordere MDDirection d By: s: 1 tablet Traci oral daily Jose, MDDire ctions : 1 tablet oral daily 120 ACTUAT budeso 2 complet Symbicort [facility] Budesonide nide-f ed Liv 0.16 ormote Medical MG/ACTUAT / rol Center formoterol (Symbi fumarate concha) 0.0045 160 MG/ACTUAT mcg-4. Metered 5 Dose mcg/Ac Inhaler tuatio [Symbicort] n HFA budesonide- Aeroso formoterol l (Symbicort) Inhale 160 mcg-4.5 r, mcg/Actuati Ordere on HFA d By: Aerosol Traci Inhaler, Jose, Ordered By: MDDire Traci ctions Jose, : 2 MDDirection puff s: 2 puff by by inhala inhalation tion twice a day twice a day alogliptin alogli 1 complet Deisy t 12.5 MG / ptin-m ed Liv Metformin etform Medical hydrochlori in Center de 500 MG 12.5 Oral Tablet mg-500 alogliptin- mg metformin Tablet 12.5 mg-500 , mg Tablet, Ordere Ordered By: d By: aguilar Fontanez MDDirection Li, s: 1 tablet MDDire oral twice ctions a day : 1 tablet oral twice a day amitriptyli complet [facility]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 Potassium 3.5-5.3 <content [facility] [Moles/volume] styleCode="Kayli Liv in Serum or d">Potassium Medical Plasma </content>4.1 Center MEQ/L<content styleCode="Velia lics"> (3.5-5.3 MEQ/L)</conten t> Chloride 98-107 Above high normal <content [facility] [Moles/volume] styleCode="Kayli Liv in Serum or d">Chloride Medical Plasma </content>109 Center MEQ/L H<content styleCode="Velia lics"> (98-107 MEQ/L)</conten t> Carbon 22-30 <content [facility] dioxide, total styleCode="Kayli Liv [Moles/volume] d">Carbon Medical in Serum or Dioxide Center Plasma </content>23 MEQ/L<content styleCode="Velia lics"> (22-30 MEQ/L)</conten t> Calcium 8.4-10.2 <content [facility] [Mass/volume] styleCode="Kayli Liv in Serum or d">Calcium Medical Plasma </content>9.6 Center MG/DL<content styleCode="Velia lics"> (8.4-10.2 MG/DL)</conten t> Creatinine 0.5-1.3 <content [facility] [Mass/volume] styleCode="Kayli Liv in Serum or d">Creatinine Medical Plasma </content>0.8 Center MG/DL<content styleCode="Velia lics"> (0.5-1.3 MG/DL)</conten t> UNK > 60 <content [facility] styleCode="Kayli Liv d">EGFR Medical </content>106 Center GFR<content styleCode="Velia lics"> (> 60 GFR)</content> Glucose 74-106 Above high normal <content [facility] [Mass/volume] styleCode="Kayli Liv in Serum or d">Glucose Medical Plasma </content>139 Center MG/DL H<content styleCode="Velia lics"> (74-106 MG/DL)</conten t> ID Date Data Source HematologyRou.[id number] 02/11/2020 06:40:00 AM EDT [facility] 0400 Name Value Range Interpretation Description Data Sup porting Code Source(s) Document(s ) Erythrocytes 4.0-5.1 <content [facility] [#/volume] in styleCode="Bold [facility] Blood by ">Red Blood Medical Automated count Cell Count Center </content>4.89 MCUMM<content styleCode="Ital ics"> (4.0-5.1 MCUMM)</content > Hemoglobin 12.3-16. Below low normal <content [facility] [Mass/volume] in 0 styleCode="Bold Liv Blood ">Hemoglobin Medical </content>10.5 Center G/DL L<content styleCode="Ital ics"> (12.3-16.0 G/DL)</content> Leukocytes 4.4-11.0 <content [facility] [#/volume] in styleCode="Bold Liv Blood by ">White Blood Medical Automated count Cell Count Center </content>7.74 KCUMM<content styleCode="Ital ics"> (4.4-11.0 KCUMM)</content > Erythrocyte mean 26.0-34. Below low normal <content [facility] corpuscular 0 styleCode="Bold Liv hemoglobin ">Mean Medical [Entitic mass] Corposcular Center by Automated Hemoglobin count </content>21.5 PG L<content styleCode="Ital ics"> (26.0-34.0 PG)</content> Erythrocyte mean 80.0-100 <content [facility] corpuscular .0 styleCode="Bold Liv volume [Entitic ">Mean Medical volume] by Corpuscular Center Automated count Volume </content>70.1 FL<content styleCode="Ital ics"> (80.0-100.0 FL)</content> Hematocrit 36.0-46. Below low normal <content [facility] [Volume 0 styleCode="Bold Liv Fraction] of ">Hematocrit Medical Blood by </content>34.3 Center Automated count % L<content styleCode="Ital ics"> (36.0-46.0 %)</content> Platelets 130-400 <content [facility] [#/volume] in styleCode="Bold Liv Blood by ">Platelet Medical Automated count Count Center </content>207 KCUMM<content styleCode="Ital ics"> (130-400 KCUMM)</content > Erythrocyte 11.5-14. Above high <content [facility] distribution 5 normal styleCode="Bold Liv width [Ratio] by ">Red Cell Medical Automated count Distribution Center Width </content>14.9 % H<content styleCode="Ital ics"> (11.5-14.5 %)</content> Erythrocyte mean 32.0-37. Below low normal <content [facility] corpuscular 0 styleCode="Bold Liv hemoglobin ">Mean Corpus. Medical concentration Hgb Center [Mass/volume] by Concentration Automated count (MCHC) </content>30.6 G/DL L<content styleCode="Ital ics"> (32.0-37.0 G/DL)</content> Platelet mean 8.0-11.0 <content [facility] volume [Entitic styleCode="Bold Liv volume] in Blood ">Mean Platelet Medical by Automated Volume Center count </content>10.8 FL<content styleCode="Ital ics"> (8.0-11.0 FL)</content> UNK 0.0 <content [facility] styleCode="Bold Liv ">Nucleated Red Medical Blood Cell Center Count </content>0.00 KCUMM<content styleCode="Ital ics"> (0.0 KCUMM)</content > UNK 0 <content [facility] styleCode="Bold Liv ">Nucleated Red Medical Blood Cell Center </content>0.0 /100<content styleCode="Ital ics"> (0 /100)</content> ID Date Data Source GFR(Creatinine).[id number] 02/11/2020 06:40:00 AM EDT [facility] 0-0400 Name Value Range Interpretation Code Description Data Huong rce(s) Supporting Document(s ) UNK > 60 <content [facility] styleCode="Bold"> Medical Cent er EGFR </content>124 GFR<content styleCode="Italic s"> (> 60 GFR)</content> ID Date Data Source BMP.[id number] 02/11/2020 06:40:00 AM EDT [facility] Name Value Range Interpretation Description Data Sup porting Code Source(s) Document(s ) Sodium 137-145 <content [facility] [Moles/volume] styleCode="Kayli Liv in Serum or d">Sodium Medical Plasma </content>139 Center MEQ/L<content styleCode="Velia lics"> (137-145 MEQ/L)</conten t> Chloride 98-107 Above high normal <content [facility] [Moles/volume] styleCode="Kayli Liv in Serum or d">Chloride Medical Plasma </content>108 Center MEQ/L H<content styleCode="Velia lics"> (98-107 MEQ/L)</conten t> Potassium 3.5-5.3 <content [facility] [Moles/volume] styleCode="Kayli Liv in Serum or d">Potassium Medical Plasma </content>3.9 Center MEQ/L<content styleCode="Velia lics"> (3.5-5.3 MEQ/L)</conten t> Carbon 22-30 <content [facility] dioxide, total styleCode="Kayli Liv [Moles/volume] d">Carbon Medical in Serum or Dioxide Center Plasma </content>24 MEQ/L<content styleCode="Velia lics"> (22-30 MEQ/L)</conten t> Calcium 8.4-10.2 <content [facility] [Mass/volume] styleCode="Kayli Allreds in Serum or d">Calcium Medical Plasma </content>9.0 Center MG/DL<content styleCode="Velia lics"> (8.4-10.2 MG/DL)</conten t> Creatinine 0.5-1.3 <content [facility] [Mass/volume] styleCode="Kayli Liv in Serum or d">Creatinine Medical Plasma </content>0.7 Center MG/DL<content styleCode="Velia lics"> (0.5-1.3 MG/DL)</conten t> UNK 7-17 <content [facility] styleCode="Kayli Allreds d">BUN Medical </content>9 Center MG/DL<content styleCode="Velia lics"> (7-17 MG/DL)</conten t> Glucose 74-106 Above high normal <content [facility] [Mass/volume] styleCode="Kayli Allreds in Serum or d">Glucose Medical Plasma </content>109 Center MG/DL H<content styleCode="Velia lics"> (74-106 MG/DL)</conten t> UNK > 60 <content [facility] styleCode="Kayli Allreds d">EGFR Medical </content>124 Center GFR<content styleCode="Velia lics"> (> 60 GFR)</content> ID Date Data Source Urinalysis.[id number] 02/10/2020 10:00:00 AM EDT [facility] 0 Name Value Range Interpretation Description Data Sup porting Code Source(s) Document(s ) UNK CLEAR <content [facility] styleCode="Kayli Allreds d">Urine Medical Clarity Center </content>Sl CLOUDY <content styleCode="Velia lics"> (CLEAR )</content> Color of Urine YELLOW <content [facility] styleCode="Kayli Allreds d">Color, Medical Urine Center </content>YELL OW <content styleCode="Velia lics"> (YELLOW )</content> Ketones NEGATIVE <content [facility] [Mass/volume] styleCode="Kayli Liv in Urine by d">Urine Medical Test strip Ketone Center </content>NEGA TIVE MG/DL<content styleCode="Velia lics"> (NEGATIVE MG/DL)</conten t> Glucose NEGATIVE <content [facility] [Mass/volume] styleCode="Kayli Liv in Urine by d">Urine Medical Test strip Glucose Center </content>NEGA TIVE MG/DL<content styleCode="Velia lics"> (NEGATIVE MG/DL)</conten t> UNK NEGATIVE <content [facility] styleCode="Kayli Liv d">Urine Medical Bilirubin Center </content>NEGA TIVE <content styleCode="Velia lics"> (NEGATIVE )</content> pH of Urine by 4.5-8.0 <content [facility] Test strip styleCode="Kayli Liv d">Urine pH Medical </content>5.5 Center <content styleCode="Velia lics"> (4.5-8.0 )</content> Specific 1.015-1.02 <content [facility] gravity of 5 styleCode="Kayli Allreds Urine by Test d">Urine Medical strip Specific Center Byron </content>1.02 0 <content styleCode="Velia lics"> (1.015-1.025 )</content> Hemoglobin NEGATIVE <content [facility] [Presence] in styleCode="Kayli Liv Urine by Test d">Urine Blood Medical strip </content>NEGA Center TIVE <content styleCode="Velia lics"> (NEGATIVE )</content> Urobilinogen 0.2-1.0 <content [facility] [Units/volume] styleCode="Kayli Liv in Urine by d">Urine Medical Test strip Urobilinogen Center </content>0.2 MG/DL<content styleCode="Velia lics"> (0.2-1.0 MG/DL)</conten t> Nitrite NEGATIVE <content [facility] [Presence] in styleCode="Kayli Liv Urine by Test d">Urine Medical strip Nitrite Center </content>NEGA TIVE <content styleCode="Velia lics"> (NEGATIVE )</content> Protein NEGATIVE <content [facility] [Mass/volume] styleCode="Kayli [facility]ck in Urine by d">Urine Medical Test strip Protein Center </content>NEGA TIVE MG/DL<content styleCode="Velia lics"> (NEGATIVE MG/DL)</conten t> Leukocyte NEGATIVE <content [facility] esterase styleCode="[facility] [Presence] in d">Urine Medical Urine by Test Leukocyte Center strip </content>TRAC E <content styleCode="Velia lics"> (NEGATIVE )</content> UNK 0-3 <content [facility] styleCode="Kayli Allreds d">Urine Red Medical Blood Cell Center </content>0-3 HPF<content styleCode="Velia lics"> (0-3 HPF)</content> UNK 0-3 <content [facility] styleCode="Kayli Allreds d">Urine White Medical Blood Cell Center </content>5 - 10 HPF<content styleCode="Velia lics"> (0-3 HPF)</content> UNK NEGATIVE <content [facility] styleCode="Kayli Allreds d">Urine Medical Bacteria Center </content>MODE RATE HPF<content styleCode="Velia lics"> (NEGATIVE HPF)</content> UNK NONE SEEN <content [facility] styleCode="Kayli Allreds d">Epithelial Medical Cell Center </content>10 - 20 HPF<content styleCode="Velia lics"> (NONE SEEN HPF)</content> UNK NONE <content [facility] styleCode="Kayli Allreds d">Trichomonas Medical Vaginalis Center </content>FEW HPF<content styleCode="Velia lics"> (NONE HPF)</content> UNK NONE SEEN <content [facility] styleCode="Kayli Allreds d">Urine Mucus Medical </content>MANY Center HPF<content styleCode="Velia lics"> (NONE SEEN HPF)</content> ID Date Data Source Liver 02/10/2020 06:00:00 AM EDT [facility] Profile.[id number] Name Value Range Interpretation Description Data Sup porting Code Source(s) Document(s ) Aspartate 14-36 <content [facility] aminotransferase styleCode="Bold"> Nito hs [Enzymatic Aspartate Medical activity/volume] Aminotransferase Center in Serum or Plasma (AST) </content>18 IU/L<content styleCode="Italic s"> (14-36 IU/L)</content> Alkaline 38-126 <content [facility] phosphatase styleCode="Bold"> Liv [Enzymatic Alkaline Medical activity/volume] Phosphatase (ALP) Cente r in Serum or Plasma </content>118 IU/L<content styleCode="Italic s"> (38-126 IU/L)</content> Bilirubin.total 0.2-1.3 <content [facility] [Mass/volume] in styleCode="Bold"> Nito hs Serum or Plasma Bilirubin Total Medical </content>0.4 Center MG/DL<content styleCode="Italic s"> (0.2-1.3 MG/DL)</content> Alanine 7-30 Above high <content [facility] aminotransferase normal styleCode="Bold"> Nito hs [Enzymatic Alanine Medical activity/volume] Aminotransferase Center in Serum or Plasma (ALT) </content>34 IU/L H<content styleCode="Italic s"> (7-30 IU/L)</content> Albumin 3.5-5.0 Below low <content [facility] [Mass/volume] in normal styleCode="Bold"> Nito hs Serum or Plasma Albumin Medical </content>3.4 Center G/DL L<content styleCode="Italic s"> (3.5-5.0 G/DL)</content> ID Date Data Source HematologyRou.[id number] 02/10/2020 06:00:00 AM EDT [facility] 0400 Name Value Range Interpretation Description Data Sup porting Code Source(s) Document(s ) Hemoglobin 12.3-16. Below low normal <content [facility] [Mass/volume] in 0 styleCode="Bold Liv Blood ">Hemoglobin Medical </content>10.9 Center G/DL L<content styleCode="Ital ics"> (12.3-16.0 G/DL)</content> Leukocytes 4.4-11.0 Above high <content [facility] [#/volume] in normal styleCode="Bold Liv Blood by ">White Blood Medical Automated count Cell Count Center </content>11.28 KCUMM H<content styleCode="Ital ics"> (4.4-11.0 KCUMM)</content > Erythrocytes 4.0-5.1 <content [facility] [#/volume] in styleCode="Bold Liv Blood by ">Red Blood Medical Automated count Cell Count Center </content>5.05 MCUMM<content styleCode="Ital ics"> (4.0-5.1 MCUMM)</content > Erythrocyte mean 26.0-34. Below low normal <content [facility] corpuscular 0 styleCode="Bold Liv hemoglobin ">Mean Medical [Entitic mass] Corposcular Center by Automated Hemoglobin count </content>21.6 PG L<content styleCode="Ital ics"> (26.0-34.0 PG)</content> Erythrocyte mean 80.0-100 <content [facility] corpuscular .0 styleCode="Bold Liv volume [Entitic ">Mean Medical volume] by Corpuscular Center Automated count Volume </content>70.7 FL<content styleCode="Ital ics"> (80.0-100.0 FL)</content> Hematocrit 36.0-46. Below low normal <content [facility] [Volume 0 styleCode="Bold Liv Fraction] of ">Hematocrit Medical Blood by </content>35.7 Center Automated count % L<content styleCode="Ital ics"> (36.0-46.0 %)</content> Platelets 130-400 <content [facility] [#/volume] in styleCode="Bold Liv Blood by ">Platelet Medical Automated count Count Center </content>185 KCUMM<content styleCode="Ital ics"> (130-400 KCUMM)</content > Erythrocyte 11.5-14. Above high <content [facility] distribution 5 normal styleCode="Bold Liv width [Ratio] by ">Red Cell Medical Automated count Distribution Center Width </content>15.2 % H<content styleCode="Ital ics"> (11.5-14.5 %)</content> Platelet mean 8.0-11.0 Above high <content [facility] volume [Entitic normal styleCode="Bold Liv volume] in Blood ">Mean Platelet Medical by Automated Volume Center count </content>12.0 FL H<content styleCode="Ital ics"> (8.0-11.0 FL)</content> Erythrocyte mean 32.0-37. Below low normal <content [facility] corpuscular 0 styleCode="Bold Liv hemoglobin ">Mean Corpus. Medical concentration Hgb Center [Mass/volume] by Concentration Automated count (MCHC) </content>30.5 G/DL L<content styleCode="Ital ics"> (32.0-37.0 G/DL)</content> UNK 0 <content [facility] styleCode="Bold Liv ">Nucleated Red Medical Blood Cell Center </content>0.0 /100<content styleCode="Ital ics"> (0 /100)</content> UNK 0.0 <content [facility] styleCode="Bold Liv ">Nucleated Red Medical Blood Cell Center Count </content>0.00 KCUMM<content styleCode="Ital ics"> (0.0 KCUMM)</content > ID Date Data Source GFR(Creatinine).[id number] 02/10/2020 06:00:00 AM EDT [facility] 0-0400 Name Value Range Interpretation Code Description Data Huong rce(s) Supporting Document(s ) UNK > 60 <content [facility] styleCode="Bold"> Medical Cent er EGFR </content>106 GFR<content styleCode="Italic s"> (> 60 GFR)</content> ID Date Data Source CHMROUTINECCDA.[id number] 02/10/2020 06:00:00 AM EDT [facility] -0400 Name Value Range Interpretation Description Data Sup porting Code Source(s) Document(s ) UNK >= 1.0 <content [facility] styleCode="Bold Medical ">AG Ratio Center </content>1.2 <content styleCode="Ital ics"> (>= 1.0 )</content> Protein 6.3-8.2 <content [facility] [Mass/volum styleCode="Bold Medical e] in Serum ">Total Protein Center or Plasma </content>6.3 G/DL<content styleCode="Ital ics"> (6.3-8.2 G/DL)</content> UNK 2.3-3.5 <content [facility] styleCode="Bold Medical ">Globulin Center </content>2.9 G/DL<content styleCode="Ital ics"> (2.3-3.5 G/DL)</content> ID Date Data Source [facility].[id number] 02/10/2020 06:00:00 AM EDT [facility] Center Name Value Range Interpretation Description Data Sup porting Code Source(s) Document(s ) Sodium 137-145 <content [facility] [Moles/volume] in styleCode="Bold"> Jose Edu[facility] Serum or Plasma Sodium Medical </content>137 Center MEQ/L<content styleCode="Italic s"> (137-145 MEQ/L)</content> Potassium 3.5-5.3 <content [facility] [Moles/volume] in styleCode="Bold"> Jose Eduardo phs Serum or Plasma Potassium Medical </content>3.8 Center MEQ/L<content styleCode="Italic s"> (3.5-5.3 MEQ/L)</content> Chloride 98-107 Above high <content [facility] [Moles/volume] in normal styleCode="Bold"> Jose Eduardo phs Serum or Plasma Chloride Medical </content>108 Center MEQ/L H<content styleCode="Italic s"> (98-107 MEQ/L)</content> UNK 7-17 <content [facility] styleCode="Bold"> Liv BUN </content>7 Medical MG/DL<content Center styleCode="Italic s"> (7-17 MG/DL)</content> Creatinine 0.5-1.3 <content [facility] [Mass/volume] in styleCode="Bold"> Nito hs Serum or Plasma Creatinine Medical </content>0.8 Center MG/DL<content styleCode="Italic s"> (0.5-1.3 MG/DL)</content> Glucose 74-106 Above high <content [facility] [Mass/volume] in normal styleCode="Bold"> Nito hs Serum or Plasma Glucose Medical </content>110 Center MG/DL H<content styleCode="Italic s"> (74-106 MG/DL)</content> Carbon dioxide, 22-30 <content [facility] total styleCode="Bold"> Liv [Moles/volume] in Carbon Dioxide Medical Serum or Plasma </content>25 Center MEQ/L<content styleCode="Italic s"> (22-30 MEQ/L)</content> Aspartate 14-36 <content [facility] aminotransferase styleCode="Bold"> Nito hs [Enzymatic Aspartate Medical activity/volume] Aminotransferase Center in Serum or Plasma (AST) </content>18 IU/L<content styleCode="Italic s"> (14-36 IU/L)</content> UNK > 60 <content [facility] styleCode="Bold"> Liv EGFR Medical </content>106 Center GFR<content styleCode="Italic s"> (> 60 GFR)</content> Calcium 8.4-10. <content [facility] [Mass/volume] in 2 styleCode="Bold"> Nito hs Serum or Plasma Calcium Medical </content>8.6 Center MG/DL<content styleCode="Italic s"> (8.4-10.2 MG/DL)</content> Bilirubin.total 0.2-1.3 <content [facility] [Mass/volume] in styleCode="Bold"> Nito hs Serum or Plasma Bilirubin Total Medical </content>0.4 Center MG/DL<content styleCode="Italic s"> (0.2-1.3 MG/DL)</content> Albumin 3.5-5.0 Below low <content [facility] [Mass/volume] in normal styleCode="Bold"> Nito hs Serum or Plasma Albumin Medical </content>3.4 Center G/DL L<content styleCode="Italic s"> (3.5-5.0 G/DL)</content> Alkaline 38-126 <content [facility] phosphatase styleCode="Bold"> Liv [Enzymatic Alkaline Medical activity/volume] Phosphatase (ALP) Cente r in Serum or Plasma </content>118 IU/L<content styleCode="Italic s"> (38-126 IU/L)</content> Alanine 7-30 Above high <content [facility] aminotransferase normal styleCode="Bold"> Nito hs [Enzymatic Alanine Medical activity/volume] Aminotransferase Center in Serum or Plasma (ALT) </content>34 IU/L H<content styleCode="Italic s"> (7-30 IU/L)</content> ID Date Data Source MROUTINECCDA.[id number] 02/10/2020 02:21:00 AM EDT [facility] -0400 Name Value Range Interpretation Description Data Sup porting Code Source(s) Document(s ) Lactate 0.7-2.0 <content [facility] [Mass/volum styleCode="Bold Medical e] in Serum ">Lactic Acid Center or Plasma </content>0.9 MMOLL<content styleCode="Ital ics"> (0.7-2.0 MMOLL)</content > ID Date Data Source Microbiology.[id number] 02/09/2020 09:16:00 PM EDT [facility] 400 Name Value Range Interpretation Code Description Data Huong rce(s) Supporting Document(s ) UNK <item><content [facility] styleCode="Bold"> Medical Cent er Culture Status </content>
<t able><tbody><tr>< td>Specimen Number:</td><td>[id number]</td></tr ><tr><td>Sample Collection Date/Time: </td><td>02/09/2020 9:16 PM</td></tr><tr>< td>Specimen Source:</td><td>B LOOD</td></tr><tr ><td>Culture Report:</td><td>C ulture in progress </td></tr><tr><td >Culture Status:</td><td>P reliminary </td></tr><tr><td >Blood Culture:</td><td> Collection Plate Date: 02/09/2020 22:04 </td></tr></tbody ></table></item> UNK <item><content [facility] styleCode="Bold"> Medical Cent er Culture Report </content>
<t able><tbody><tr>< td>Specimen Number:</td><td>[id number]</td></tr ><tr><td>Sample Collection Date/Time: </td><td>02/09/2020 9:16 PM</td></tr><tr>< td>Specimen Source:</td><td>B LOOD</td></tr><tr ><td>Blood Culture:</td><td> Collection Plate Date: 02/09/2020 22:04 </td></tr><tr><td >Culture Status:</td><td>P reliminary </td></tr><tr><td >Culture Report:</td><td>C ulture in progress </td></tr></tbody ></table></item> ID Date Data Source Microbiology.[id number] 02/09/2020 09:00:00 PM EDT [facility] 400 Name Value Range Interpretation Code Description Data Huong rce(s) Supporting Document(s ) UNK <item><content [facility] styleCode="Bold"> Medical [facility] Culture Report </content>
<t able><tbody><tr>< td>Specimen Number:</td><td>[id number]</td></tr ><tr><td>Sample Collection Date/Time: </td><td>02/09/2020 9:00 PM</td></tr><tr>< td>Specimen Source:</td><td>B LOOD</td></tr><tr ><td>Blood Culture:</td><td> Collection Plate Date: 02/09/2020 21:11 </td></tr><tr><td >Culture Status:</td><td>P reliminary </td></tr><tr><td >Culture Report:</td><td>C ulture in progress </td></tr></tbody ></table></item> UNK <item><content [facility] styleCode="Bold"> Medical Cent er Culture Status </content>
<t able><tbody><tr>< td>Specimen Number:</td><td>[id number]</td></tr ><tr><td>Sample Collection Date/Time: </td><td>02/09/2020 9:00 PM</td></tr><tr>< td>Specimen Source:</td><td>B LOOD</td></tr><tr ><td>Culture Report:</td><td>C ulture in progress </td></tr><tr><td >Culture Status:</td><td>P reliminary </td></tr><tr><td >Blood Culture:</td><td> Collection Plate Date: 02/09/2020 21:11 </td></tr></tbody ></table></item> ID Date Data Source Liver 02/09/2020 09:00:00 PM EDT [facility] Profile.[id number] Name Value Range Interpretation Description Data Sup porting Code Source(s) Document(s ) Aspartate 14-36 <content [facility] aminotransferase styleCode="Bold"> Nito hs [Enzymatic Aspartate Medical activity/volume] Aminotransferase Center in Serum or Plasma (AST) </content>21 IU/L<content styleCode="Italic s"> (14-36 IU/L)</content> Alanine 7-30 Above high <content [facility] aminotransferase normal styleCode="Bold"> Nito hs [Enzymatic Alanine Medical activity/volume] Aminotransferase Center in Serum or Plasma (ALT) </content>43 IU/L H<content styleCode="Italic s"> (7-30 IU/L)</content> Bilirubin.total 0.2-1.3 <content [facility] [Mass/volume] in styleCode="Bold"> Nito hs Serum or Plasma Bilirubin Total Medical </content>0.3 Center MG/DL<content styleCode="Italic s"> (0.2-1.3 MG/DL)</content> Alkaline 38-126 Above high <content [facility] phosphatase normal styleCode="Bold"> Liv [Enzymatic Alkaline Medical activity/volume] Phosphatase (ALP) Cente r in Serum or Plasma </content>142 IU/L H<content styleCode="Italic s"> (38-126 IU/L)</content> Albumin 3.5-5.0 <content [facility] [Mass/volume] in styleCode="Bold"> Nito hs Serum or Plasma Albumin Medical </content>3.8 Center G/DL<content styleCode="Italic s"> (3.5-5.0 G/DL)</content> UNK 0.0-0.3 <content [facility] styleCode="Bold"> Liv Bilirubin, Direct Medical </content>< 0.2 Center MG/DL<content styleCode="Italic s"> (0.0-0.3 MG/DL)</content> ID Date Data Source HematologyRou.[id number] 02/09/2020 09:00:00 PM EDT Lionel nt [facility] 0400 Name Value Range Interpretation Description Data Sup porting Code Source(s) Document(s ) Leukocytes 4.4-11.0 Above high <content Saint [#/volume] in normal styleCode="Bold Liv Blood by ">White Blood Medical Automated count Cell Count Center </content>12.55 KCUMM H<content styleCode="Ital ics"> (4.4-11.0 KCUMM)</content > Hemoglobin 12.3-16. Below low normal <content [facility] [Mass/volume] in 0 styleCode="Bold Liv Blood ">Hemoglobin Medical </content>11.6 Center G/DL L<content styleCode="Ital ics"> (12.3-16.0 G/DL)</content> Erythrocytes 4.0-5.1 Above high <content [facility] [#/volume] in normal styleCode="Bold Liv Blood by ">Red Blood Medical Automated count Cell Count Center </content>5.33 MCUMM H<content styleCode="Ital ics"> (4.0-5.1 MCUMM)</content > Erythrocyte mean 80.0-100 <content [facility] corpuscular .0 styleCode="Bold Liv volume [Entitic ">Mean Medical volume] by Corpuscular Center Automated count Volume </content>71.3 FL<content styleCode="Ital ics"> (80.0-100.0 FL)</content> Hematocrit 36.0-46. <content [facility] [Volume 0 styleCode="Bold Liv Fraction] of ">Hematocrit Medical Blood by </content>38.0 Center Automated count %<content styleCode="Ital ics"> (36.0-46.0 %)</content> Erythrocyte mean 26.0-34. Below low normal <content [facility] corpuscular 0 styleCode="Bold Liv hemoglobin ">Mean Medical [Entitic mass] Corposcular Center by Automated Hemoglobin count </content>21.8 PG L<content styleCode="Ital ics"> (26.0-34.0 PG)</content> Platelet mean 8.0-11.0 Above high <content [facility] volume [Entitic normal styleCode="Bold Liv volume] in Blood ">Mean Platelet Medical by Automated Volume Center count </content>11.9 FL H<content styleCode="Ital ics"> (8.0-11.0 FL)</content> Erythrocyte 11.5-14. Above high <content [facility] distribution 5 normal styleCode="Bold Lvi width [Ratio] by ">Red Cell Medical Automated count Distribution Center Width </content>15.3 % H<content styleCode="Ital ics"> (11.5-14.5 %)</content> Erythrocyte mean 32.0-37. Below low normal <content [facility] corpuscular 0 styleCode="Bold Liv hemoglobin ">Mean Corpus. Medical concentration Hgb Center [Mass/volume] by Concentration Automated count (MCHC) </content>30.5 G/DL L<content styleCode="Ital ics"> (32.0-37.0 G/DL)</content> Platelets 130-400 <content Saint [#/volume] in styleCode="Bold Liv Blood by ">Platelet Medical Automated count Count Center </content>196 KCUMM<content styleCode="Ital ics"> (130-400 KCUMM)</content > UNK 1.6-7.3 Above high <content Saint normal styleCode="Bold Liv ">Neutrophil Medical Count Center </content>7.96 KCUMM H<content styleCode="Ital ics"> (1.6-7.3 KCUMM)</content > Lymphocytes 24.0-44. <content Saint [#/volume] in 0 styleCode="Bold Liv Blood by ">Lymphocyte Medical Automated count </content>26.5 Center %<content styleCode="Ital ics"> (24.0-44.0 %)</content> Neutrophils 36-66 <content Saint [#/volume] in styleCode="Bold Liv Blood by ">Neutrophil Medical Automated count </content>63.4 Center %<content styleCode="Ital ics"> (36-66 %)</content> UNK 1.0-4.8 <content Saint styleCode="Bold Liv ">Lymphocyte Medical Count Center </content>3.33 KCUMM<content styleCode="Ital ics"> (1.0-4.8 KCUMM)</content > UNK 0.2-0.9 <content Saint styleCode="Bold Liv ">Monocyte Medical Count Center </content>0.89 KCUMM<content styleCode="Ital ics"> (0.2-0.9 KCUMM)</content > Monocytes 3.0-10.0 <content Saint [#/volume] in styleCode="Bold Liv Blood by ">Monocyte Medical Automated count </content>7.1 Center %<content styleCode="Ital ics"> (3.0-10.0 %)</content> Basophils 0.0-1.0 <content Saint [#/volume] in styleCode="Bold Liv Blood by ">Basophil Medical Automated count </content>0.2 Center %<content styleCode="Ital ics"> (0.0-1.0 %)</content> UNK 0.0-0.6 <content Saint styleCode="Bold Liv ">Eosinophil Medical Count Center </content>0.27 KCUMM<content styleCode="Ital ics"> (0.0-0.6 KCUMM)</content > Eosinophils 0-5.0 <content Saint [#/volume] in styleCode="Bold Liv Blood by ">Eosinophil Medical Automated count </content>2.2 Center %<content styleCode="Ital ics"> (0-5.0 %)</content> UNK 0 <content Saint styleCode="Bold Liv ">Nucleated Red Medical Blood Cell Center </content>0.0 /100<content styleCode="Ital ics"> (0 /100)</content> UNK 0-0.1 <content Saint styleCode="Bold Liv ">Immature Medical Granulocyte Center Count </content>0.07 KCUMM<content styleCode="Ital ics"> (0-0.1 KCUMM)</content > UNK 0.0-0.3 <content Saint styleCode="Bold Liv ">Basophil Medical Count Center </content>0.03 KCUMM<content styleCode="Ital ics"> (0.0-0.3 KCUMM)</content > UNK 0.0 <content Saint styleCode="Bold Liv ">Nucleated Red Medical Blood Cell Center Count </content>0.00 KCUMM<content styleCode="Ital ics"> (0.0 KCUMM)</content > UNK < 1 <content Saint styleCode="Bold Liv ">Immature Medical Granulocyte Center Ratio </content>0.6 %<content styleCode="Ital ics"> (< 1 %)</content> ID Date Data Source GFR(Creatinine).[id number] 02/09/2020 09:00:00 PM EDT [facility] 0-0400 Name Value Range Interpretation Code Description Data Huong rce(s) Supporting Document(s ) UNK > 60 <content [facility] styleCode="Bold"> Medical Cent er EGFR </content>124 GFR<content styleCode="Italic s"> (> 60 GFR)</content> ID Date Data Source Coagulation 02/09/2020 09:00:00 PM [facility] Rout.[id number] EDT Name Value Range Interpretation Description Data Sup porting Code Source(s) Document(s ) UNK 9.0-13.0 <content Saint styleCode="Kayli Liv d">Protime Medical </content>12.3 Center SEC<content styleCode="Velia lics"> (9.0-13.0 SEC)</content> INR in 0.80-1.2 <content Saint Platelet poor 0 styleCode="Kayli [facility] plasma by d">INR Medical Coagulation </content>1.11 Center assay #<content styleCode="Velia lics"> (0.80-1.20 #)</content> ID Date Data Source CHMROUTINECCDA.[id number] 02/09/2020 09:00:00 PM EDT [facility] -0400 Name Value Range Interpretation Description Data Sup porting Code Source(s) Document(s ) UNK NEGATIVE <content Saint styleCode="Bold Liv ">Acetone Medical </content>NEGAT Center BETSY <content styleCode="Ital ics"> (NEGATIVE )</content> UNK 30-110 <content Saint styleCode="Bold Liv ">Amylase Medical </content>52 Center IU/L<content styleCode="Ital ics"> (30-110 IU/L)</content> Lactate 0.7-2.0 <content Saint [Mass/volum styleCode="Bold Liv e] in Serum ">Lactic Acid Medical or Plasma </content>1.3 Center MMOLL<content styleCode="Ital ics"> (0.7-2.0 MMOLL)</content > Lipase 23-300 <content Saint [Enzymatic styleCode="Bold Liv activity/vo ">Lipase Medical lume] in </content>57 Center Serum or IU/L<content Plasma styleCode="Ital ics"> (23-300 IU/L)</content> ID Date Data Source CardiacMarkers.[id number] 02/09/2020 09:00:00 PM EDT [facility] -0400 Name Value Range Interpretation Description Data Sup porting Code Source(s) Document(s ) Troponin < 0.034 <content [facility] I.cardiac styleCode="Bold Liv [Mass/volume ">Troponin I Medical ] in Serum </content>< Center or Plasma 0.012 NG/ML<content styleCode="Ital ics"> (< 0.034 NG/ML)</content > ID Date Data Source BMP.[id number] 02/09/2020 09:00:00 PM EDT [facility] Name Value Range Interpretation Description Data Sup porting Code Source(s) Document(s ) Sodium 137-145 <content Saint [Moles/volume] in styleCode="Bold"> Jose Eduardo [facility] Serum or Plasma Sodium Medical </content>138 Center MEQ/L<content styleCode="Italic s"> (137-145 MEQ/L)</content> Carbon dioxide, 22-30 <content Saint total styleCode="Bold"> Liv [Moles/volume] in Carbon Dioxide Medical Serum or Plasma </content>25 Center MEQ/L<content styleCode="Italic s"> (22-30 MEQ/L)</content> UNK 7-17 <content Saint styleCode="Bold"> Liv BUN </content>9 Medical MG/DL<content Center styleCode="Italic s"> (7-17 MG/DL)</content> Potassium 3.5-5.3 <content Saint [Moles/volume] in styleCode="Bold"> Jose Eduardo phs Serum or Plasma Potassium Medical </content>3.7 Center MEQ/L<content styleCode="Italic s"> (3.5-5.3 MEQ/L)</content> Chloride 98-107 <content [facility] [Moles/volume] in styleCode="Bold"> Jose Eduardo phs Serum or Plasma Chloride Medical </content>105 Center MEQ/L<content styleCode="Italic s"> (98-107 MEQ/L)</content> Glucose 74-106 Above high <content Saint [Mass/volume] in normal styleCode="Bold"> Nito hs Serum or Plasma Glucose Medical </content>117 Center MG/DL H<content styleCode="Italic s"> (74-106 MG/DL)</content> Creatinine 0.5-1.3 <content Saint [Mass/volume] in styleCode="Bold"> Nito hs Serum or Plasma Creatinine Medical </content>0.7 Center MG/DL<content styleCode="Italic s"> (0.5-1.3 MG/DL)</content> UNK > 60 <content Saint styleCode="Bold"> Liv EGFR Medical </content>124 Center GFR<content styleCode="Italic s"> (> 60 GFR)</content> Calcium 8.4-10. <content Saint [Mass/volume] in 2 styleCode="Bold"> Nito hs Serum or Plasma Calcium Medical </content>9.1 Center MG/DL<content styleCode="Italic s"> (8.4-10.2 MG/DL)</content> Aspartate 14-36 <content Saint aminotransferase styleCode="Bold"> Nito hs [Enzymatic Aspartate Medical activity/volume] Aminotransferase Center in Serum or Plasma (AST) </content>21 IU/L<content styleCode="Italic s"> (14-36 IU/L)</content> Alanine 7-30 Above high <content [facility] aminotransferase normal styleCode="Bold"> Nito hs [Enzymatic Alanine Medical activity/volume] Aminotransferase Center in Serum or Plasma (ALT) </content>43 IU/L H<content styleCode="Italic s"> (7-30 IU/L)</content> Alkaline 38-126 Above high <content [facility] phosphatase normal styleCode="Bold"> Liv [Enzymatic Alkaline Medical activity/volume] Phosphatase (ALP) Cente r in Serum or Plasma </content>142 IU/L H<content styleCode="Italic s"> (38-126 IU/L)</content> Bilirubin.total 0.2-1.3 <content [facility] [Mass/volume] in styleCode="Bold"> Nito hs Serum or Plasma Bilirubin Total Medical </content>0.3 Center MG/DL<content styleCode="Italic s"> (0.2-1.3 MG/DL)</content> Albumin 3.5-5.0 <content [facility] [Mass/volume] in styleCode="Bold"> Nito hs Serum or Plasma Albumin Medical </content>3.8 Center G/DL<content styleCode="Italic s"> (3.5-5.0 G/DL)</content> ID Date Data Source Liver 02/07/2020 05:05:00 AM EDT [facility] Profile.[id number] Name Value Range Interpretation Description Data Sup porting Code Source(s) Document(s ) Aspartate 14-36 Above high <content [facility] aminotransferase normal styleCode="Bold"> Nito hs [Enzymatic Aspartate Medical activity/volume] Aminotransferase Center in Serum or Plasma (AST) </content>78 IU/L H<content styleCode="Italic s"> (14-36 IU/L)</content> Alanine 7-30 Above high <content [facility] aminotransferase normal styleCode="Bold"> Nito hs [Enzymatic Alanine Medical activity/volume] Aminotransferase Center in Serum or Plasma (ALT) </content>120 IU/L H<content styleCode="Italic s"> (7-30 IU/L)</content> Alkaline 38-126 Above high <content [facility] phosphatase normal styleCode="Bold"> Liv [Enzymatic Alkaline Medical activity/volume] Phosphatase (ALP) Cente r in Serum or Plasma </content>153 IU/L H<content styleCode="Italic s"> (38-126 IU/L)</content> Bilirubin.total 0.2-1.3 <content [facility] [Mass/volume] in styleCode="Bold"> Nito hs Serum or Plasma Bilirubin Total Medical </content>0.6 Center MG/DL<content styleCode="Italic s"> (0.2-1.3 MG/DL)</content> UNK 0.0-0.3 <content Saint styleCode="Bold"> Liv Bilirubin, Direct Medical </content>< 0.2 Center MG/DL<content styleCode="Italic s"> (0.0-0.3 MG/DL)</content> Albumin 3.5-5.0 <content Saint [Mass/volume] in styleCode="Bold"> Nito hs Serum or Plasma Albumin Medical </content>3.8 Center G/DL<content styleCode="Italic s"> (3.5-5.0 G/DL)</content> ID Date Data Source HematologyRou.[id number] 02/07/2020 05:05:00 AM EDT Lionel nt [facility] 0400 Name Value Range Interpretation Description Data Sup porting Code Source(s) Document(s ) Erythrocytes 4.0-5.1 Above high <content Saint [#/volume] in normal styleCode="Bold Liv Blood by ">Red Blood Medical Automated count Cell Count Center </content>5.73 MCUMM H<content styleCode="Ital ics"> (4.0-5.1 MCUMM)</content > Leukocytes 4.4-11.0 Above high <content Saint [#/volume] in normal styleCode="Bold Liv Blood by ">White Blood Medical Automated count Cell Count Center </content>11.49 KCUMM H<content styleCode="Ital ics"> (4.4-11.0 KCUMM)</content > Erythrocyte mean 80.0-100 <content [facility] corpuscular .0 styleCode="Bold Liv volume [Entitic ">Mean Medical volume] by Corpuscular Center Automated count Volume </content>70.3 FL<content styleCode="Ital ics"> (80.0-100.0 FL)</content> Hemoglobin 12.3-16. <content Saint [Mass/volume] in 0 styleCode="Bold Liv Blood ">Hemoglobin Medical </content>12.3 Center G/DL<content styleCode="Ital ics"> (12.3-16.0 G/DL)</content> Erythrocyte mean 26.0-34. Below low normal <content [facility] corpuscular 0 styleCode="Bold Liv hemoglobin ">Mean Medical [Entitic mass] Corposcular Center by Automated Hemoglobin count </content>21.5 PG L<content styleCode="Ital ics"> (26.0-34.0 PG)</content> Hematocrit 36.0-46. <content [facility] [Volume 0 styleCode="Bold Liv Fraction] of ">Hematocrit Medical Blood by </content>40.3 Center Automated count %<content styleCode="Ital ics"> (36.0-46.0 %)</content> Platelet mean 8.0-11.0 Above high <content Saint volume [Entitic normal styleCode="Bold Liv volume] in Blood ">Mean Platelet Medical by Automated Volume Center count </content>11.3 FL H<content styleCode="Ital ics"> (8.0-11.0 FL)</content> Erythrocyte mean 32.0-37. Below low normal <content [facility] corpuscular 0 styleCode="Bold Liv hemoglobin ">Mean Corpus. Medical concentration Hgb Center [Mass/volume] by Concentration Automated count (MCHC) </content>30.5 G/DL L<content styleCode="Ital ics"> (32.0-37.0 G/DL)</content> Erythrocyte 11.5-14. Above high <content [facility] distribution 5 normal styleCode="Bold Liv width [Ratio] by ">Red Cell Medical Automated count Distribution Center Width </content>15.9 % H<content styleCode="Ital ics"> (11.5-14.5 %)</content> Platelets 130-400 <content Saint [#/volume] in styleCode="Bold Liv Blood by ">Platelet Medical Automated count Count Center </content>154 KCUMM<content styleCode="Ital ics"> (130-400 KCUMM)</content > UNK 0 <content Saint styleCode="Bold Liv ">Nucleated Red Medical Blood Cell Center </content>0.0 /100<content styleCode="Ital ics"> (0 /100)</content> UNK 1.6-4.9 Above high <content Saint normal styleCode="Bold Liv ">Immature Medical Platelet Center Fraction </content>7.3 % H<content styleCode="Ital ics"> (1.6-4.9 %)</content> UNK 0.0 <content Saint styleCode="Bold Liv ">Nucleated Red Medical Blood Cell Center Count </content>0.00 KCUMM<content styleCode="Ital ics"> (0.0 KCUMM)</content > ID Date Data Source GFR(Creatinine).[id number] 02/07/2020 05:05:00 AM EDT [facility] 0-0400 Name Value Range Interpretation Code Description Data Huong rce(s) Supporting Document(s ) UNK > 60 <content [facility] styleCode="Bold"> Medical Cent er EGFR </content>183 GFR<content styleCode="Italic s"> (> 60 GFR)</content> ID Date Data Source CHMROUTINECCDA.[id number] 02/07/2020 05:05:00 AM EDT [facility] -0400 Name Value Range Interpretation Description Data Sup porting Code Source(s) Document(s ) Lipase 23-300 <content [facility] [Enzymatic styleCode="Bold Medical activity/vo ">Lipase Center lume] in </content>39 Serum or IU/L<content Plasma styleCode="Ital ics"> (23-300 IU/L)</content> Lactate 0.7-2.0 <content [facility] [Mass/volum styleCode="Bold Medical e] in Serum ">Lactic Acid Center or Plasma </content>1.5 MMOLL<content styleCode="Ital ics"> (0.7-2.0 MMOLL)</content > ID Date Data Source CardiacMarkers.[id number] 02/07/2020 05:05:00 AM EDT [facility] -0400 Name Value Range Interpretation Description Data Sup porting Code Source(s) Document(s ) Troponin < 0.034 <content [facility] I.cardiac styleCode="Bold Liv [Mass/volume ">Troponin I Medical ] in Serum </content>< Center or Plasma 0.012 NG/ML<content styleCode="Ital ics"> (< 0.034 NG/ML)</content > ID Date Data Source [facility].[id number] 02/07/2020 05:05:00 AM EDT [facility] Name Value Range Interpretation Description Data Sup porting Code Source(s) Document(s ) Potassium <content Saint [Moles/volume] in styleCode="Bold"> Jose Eduardo [facility] Serum or Plasma Potassium Medical </content>Test Center not performed. MEQ/L (Reference Range: not available)
Sodium 137-145 Below low <content Saint [Moles/volume] in normal styleCode="Bold"> Jose Eduardo phs Serum or Plasma Sodium Medical </content>136 Center MEQ/L L<content styleCode="Italic s"> (137-145 MEQ/L)</content> Carbon dioxide, 22-30 Below low <content [facility] total normal styleCode="Bold"> Liv [Moles/volume] in Carbon Dioxide Medical Serum or Plasma </content>17 Center MEQ/L L<content styleCode="Italic s"> (22-30 MEQ/L)</content> Chloride 98-107 Above high <content [facility] [Moles/volume] in normal styleCode="Bold"> Jose Eduardo [facility] Serum or Plasma Chloride Medical </content>113 Center MEQ/L H<content styleCode="Italic s"> (98-107 MEQ/L)</content> UNK 7-17 Below low <content [facility] normal styleCode="Bold"> Liv BUN </content>6 Medical MG/DL L<content Center styleCode="Italic s"> (7-17 MG/DL)</content> Calcium 8.4-10. Below low <content [facility] [Mass/volume] in 2 normal styleCode="Bold"> Nito hs Serum or Plasma Calcium Medical </content>7.9 Center MG/DL L<content styleCode="Italic s"> (8.4-10.2 MG/DL)</content> Glucose 74-106 Above high <content [facility] [Mass/volume] in normal styleCode="Bold"> Nito hs Serum or Plasma Glucose Medical </content>119 Center MG/DL H<content styleCode="Italic s"> (74-106 MG/DL)</content> UNK > 60 <content [facility] styleCode="Bold"> Liv EGFR Medical </content>183 Center GFR<content styleCode="Italic s"> (> 60 GFR)</content> Creatinine 0.5-1.3 <content [facility] [Mass/volume] in styleCode="Bold"> Nito hs Serum or Plasma Creatinine Medical </content>0.5 Center MG/DL<content styleCode="Italic s"> (0.5-1.3 MG/DL)</content> Aspartate 14-36 Above high <content [facility] aminotransferase normal styleCode="Bold"> Nito hs [Enzymatic Aspartate Medical activity/volume] Aminotransferase Center in Serum or Plasma (AST) </content>78 IU/L H<content styleCode="Italic s"> (14-36 IU/L)</content> Bilirubin.total 0.2-1.3 <content [facility] [Mass/volume] in styleCode="Bold"> Nito hs Serum or Plasma Bilirubin Total Medical </content>0.6 Center MG/DL<content styleCode="Italic s"> (0.2-1.3 MG/DL)</content> Alanine 7-30 Above high <content [facility] aminotransferase normal styleCode="Bold"> Nito hs [Enzymatic Alanine Medical activity/volume] Aminotransferase Center in Serum or Plasma (ALT) </content>120 IU/L H<content styleCode="Italic s"> (7-30 IU/L)</content> Alkaline 38-126 Above high <content [facility] phosphatase normal styleCode="Bold"> Liv [Enzymatic Alkaline Medical activity/volume] Phosphatase (ALP) Cente r in Serum or Plasma </content>153 IU/L H<content styleCode="Italic s"> (38-126 IU/L)</content> Albumin 3.5-5.0 <content [facility] [Mass/volume] in styleCode="Bold"> Nito hs Serum or Plasma Albumin Medical </content>3.8 Center G/DL<content styleCode="Italic s"> (3.5-5.0 G/DL)</content> ID Date Data Source Urinalysis.[id number] 02/07/2020 02:55:00 AM EDT [facility] 0 Name Value Range Interpretation Description Data Sup porting Code Source(s) Document(s ) Color of Urine YELLOW <content [facility] styleCode[facility] d">Color, Medical Urine Center </content>YELL OW <content styleCode="Velia lics"> (YELLOW )</content> UNK NEGATIVE <content Saint styleCode="Kayli Liv d">Urine Medical Bilirubin Center </content>NEGA TIVE <content styleCode="Velia lics"> (NEGATIVE )</content> Ketones NEGATIVE <content [facility] [Mass/volume] styleCode="Kayli [facility]ck in Urine by d">Urine Medical Test strip Ketone Center </content>NEGA TIVE MG/DL<content styleCode="Velia lics"> (NEGATIVE MG/DL)</conten t> UNK CLEAR <content Saint styleCode="Kayli Allreds d">Urine Medical Clarity Center </content>ROB R <content styleCode="Velia lics"> (CLEAR )</content> Glucose NEGATIVE <content Saint [Mass/volume] styleCode="Kayli Peck in Urine by d">Urine Medical Test strip Glucose Center </content>NEGA TIVE MG/DL<content styleCode="Velia lics"> (NEGATIVE MG/DL)</conten t> pH of Urine by 4.5-8.0 <content Saint Test strip styleCode="Kayli Allreds d">Urine pH Medical </content>7.5 Center <content styleCode="Velia lics"> (4.5-8.0 )</content> Specific 1.015-1.02 <content [facility] gravity of 5 styleCode="Kayli Peck Urine by Test d">Urine Medical strip Specific Center [place] </content>1.02 0 <content styleCode="Velia lics"> (1.015-1.025 )</content> Hemoglobin NEGATIVE <content Saint [Presence] in styleCode="Kayli Peck Urine by Test d">Urine Blood Medical strip </content>MODE Center RATE <content styleCode="Velia lics"> (NEGATIVE )</content> Protein NEGATIVE <content Saint [Mass/volume] styleCode="Kayli Allreds in Urine by d">Urine Medical Test strip Protein Center </content>NEGA TIVE MG/DL<content styleCode="Velia lics"> (NEGATIVE MG/DL)</conten t> Nitrite NEGATIVE <content Saint [Presence] in styleCode="Kayli Peck Urine by Test d">Urine Medical strip Nitrite Center </content>NEGA TIVE <content styleCode="Velia lics"> (NEGATIVE )</content> Urobilinogen 0.2-1.0 <content [facility] [Units/volume] styleCode="Kayli [facility]ck in Urine by d">Urine Medical Test strip Urobilinogen Center </content>0.2 MG/DL<content styleCode="Velia lics"> (0.2-1.0 MG/DL)</conten t> Leukocyte NEGATIVE <content [facility] esterase styleCode="Kayli [facility]ck [Presence] in d">Urine Medical Urine by Test Leukocyte Center strip </content>NEGA TIVE <content styleCode="Velia lics"> (NEGATIVE )</content> UNK 0-3 <content Saint styleCode="Kayli Liv d">Urine Red Medical Blood Cell Center </content>5 - 10 HPF<content styleCode="Velia lics"> (0-3 HPF)</content> UNK NEGATIVE <content Saint styleCode="Kayli Liv d">Urine Medical Bacteria Center </content>MODE RATE HPF<content styleCode="Velia lics"> (NEGATIVE HPF)</content> UNK 0-3 <content Saint styleCode="Kayli Liv d">Urine White Medical Blood Cell Center </content>0-3 HPF<content styleCode="Velia lics"> (0-3 HPF)</content> UNK NONE SEEN <content Saint styleCode="Kayli Liv d">Epithelial Medical Cell Center </content>2-5 HPF<content styleCode="Velia lics"> (NONE SEEN HPF)</content> ID Date Data Source [id number] 09/16/2019 09:19:20 AM EST PK [facility]bl[facility] ([place] [id number] [facility]) Name Value Range Interpretation Description Data Source(s ) Supporting Code Document(s ) No Results No Results No Results RAE ([facility]ed For [facility]) ID Date Data Source [id number] 05/18/2019 01:04:33 PM EDT PK Leblanc ([place] [id number] [facility]) Name Value Range Interpretation Description Data Source(s ) Supporting Code Document(s ) No Results No Results No Results RAE ([facility] Recorded For [facility]) ID Date Data Source [id number] 05/17/2019 03:23:30 PM EDT PK Leblanc ([place] [id number] [facility]) Name Value Range Interpretation Description Data Source(s ) Supporting Code Document(s ) No Results No Results No Results RAE ([facility] For [facility]) ID Date Data Source Liver 03/10/2019 07:50:00 PM EDT [facility] Profile.[id number] Name Value Range Interpretation Description Data Sup porting Code Source(s) Document(s ) Aspartate 14-36 Above high <content [facility] aminotransferase normal styleCode="Bold"> Nito hs [Enzymatic Aspartate Medical activity/volume] Aminotransferase Center in Serum or Plasma (AST) </content>39 IU/L H<content styleCode="Italic s"> (14-36 IU/L)</content> Alanine 7-30 Above high <content [facility] aminotransferase normal styleCode="Bold"> Nito hs [Enzymatic Alanine Medical activity/volume] Aminotransferase Center in Serum or Plasma (ALT) </content>39 IU/L H<content styleCode="Italic s"> (7-30 IU/L)</content> Alkaline 38-126 <content [facility] phosphatase styleCode="Bold"> Liv [Enzymatic Alkaline Medical activity/volume] Phosphatase (ALP) Cente r in Serum or Plasma </content>85 IU/L<content styleCode="Italic s"> (38-126 IU/L)</content> Bilirubin.total 0.2-1.3 <content Saint [Mass/volume] in styleCode="Bold"> Nito hs Serum or Plasma Bilirubin Total Medical </content>0.4 Center MG/DL<content styleCode="Italic s"> (0.2-1.3 MG/DL)</content> Albumin 3.5-5.0 <content [facility] [Mass/volume] in styleCode="Bold"> Nito hs Serum or Plasma Albumin Medical </content>3.8 Center G/DL<content styleCode="Italic s"> (3.5-5.0 G/DL)</content> ID Date Data Source LIPID.[id number] 03/10/2019 07:50:00 PM EDT [facility] Name Value Range Interpretation Description Data Sup porting Code Source(s) Document(s ) Cholesterol -<200 <content Saint [Mass/volume] styleCode="Bold"> Liv in Serum or Cholesterol Medical Plasma </content>165 Center MG/DL<content styleCode="Italic s"> (-<200 MG/DL)</content> Triglyceride < 150 Above high normal <content Saint [Mass/volume] styleCode="Bold"> Liv in Serum or Triglycerides Medical Plasma </content>282 Center MG/DL H<content styleCode="Italic s"> (< 150 MG/DL)</content> UNK > 60 Below low normal <content Saint styleCode="Bold"> Liv HDL- Cholesterol Medical </content>28 Center MG/DL L<content styleCode="Italic s"> (> 60 MG/DL)</content> UNK <content Saint styleCode="Bold"> Liv LDL-Cholesterol Medical </content> Center (Reference Range: not available)
<c ontent styleCode="xLocal PreformattedText" >Triglycerides are >250 mg/dl; therefore, the LDL calculation is invalid.
Chol esterol electrophoresis is recommended if medically appropriate.</con tent> ID Date Data Source HematologyRou.[id number] 03/10/2019 07:50:00 PM EDT [facility] 0400 Name Value Range Interpretation Description Data Sup porting Code Source(s) Document(s ) Hemoglobin 12.3-16. Below low normal <content Saint [Mass/volume] in 0 styleCode="Bold Liv Blood ">Hemoglobin Medical </content>11.5 Center G/DL L<content styleCode="Ital ics"> (12.3-16.0 G/DL)</content> Erythrocytes 4.0-5.1 Above high <content Saint [#/volume] in normal styleCode="Bold [facility] Blood by ">Red Blood Medical Automated count Cell Count Center </content>5.38 MCUMM H<content styleCode="Ital ics"> (4.0-5.1 MCUMM)</content > Leukocytes 4.4-11.0 <content Saint [#/volume] in styleCode="Bold Liv Blood by ">White Blood Medical Automated count Cell Count Center </content>8.68 KCUMM<content styleCode="Ital ics"> (4.4-11.0 KCUMM)</content > Erythrocyte mean 32.0-37. Below low normal <content [facility] corpuscular 0 styleCode="Bold Liv hemoglobin ">Mean Corpus. Medical concentration Hgb Center [Mass/volume] by Concentration Automated count (MCHC) </content>30.0 G/DL L<content styleCode="Ital ics"> (32.0-37.0 G/DL)</content> Erythrocyte 11.5-14. Above high <content Saint distribution 5 normal styleCode="Bold Liv width [Ratio] by ">Red Cell Medical Automated count Distribution Center Width </content>15.3 % H<content styleCode="Ital ics"> (11.5-14.5 %)</content> Erythrocyte mean 26.0-34. Below low normal <content Saint corpuscular 0 styleCode="Bold Liv hemoglobin ">Mean Medical [Entitic mass] Corposcular Center by Automated Hemoglobin count </content>21.4 PG L<content styleCode="Ital ics"> (26.0-34.0 PG)</content> Hematocrit 36.0-46. <content Saint [Volume 0 styleCode="Bold Liv Fraction] of ">Hematocrit Medical Blood by </content>38.3 Center Automated count %<content styleCode="Ital ics"> (36.0-46.0 %)</content> Erythrocyte mean 80.0-100 <content [facility] corpuscular .0 styleCode="Bold Liv volume [Entitic ">Mean Medical volume] by Corpuscular Center Automated count Volume </content>71.2 FL<content styleCode="Ital ics"> (80.0-100.0 FL)</content> UNK 0 <content Saint styleCode="Bold Liv ">Nucleated Red Medical Blood Cell Center </content>0.0 /100<content styleCode="Ital ics"> (0 /100)</content> Platelets 130-400 <content Saint [#/volume] in styleCode="Bold Liv Blood by ">Platelet Medical Automated count Count Center </content>196 KCUMM<content styleCode="Ital ics"> (130-400 KCUMM)</content > UNK 1.6-4.9 Above high <content Saint normal styleCode="Bold Liv ">Immature Medical Platelet Center Fraction </content>7.5 % H<content styleCode="Ital ics"> (1.6-4.9 %)</content> UNK 0.0 <content Saint styleCode="Bold Liv ">Nucleated Red Medical Blood Cell Center Count </content>0.00 KCUMM<content styleCode="Ital ics"> (0.0 KCUMM)</content > ID Date Data Source GFR(Creatinine).[id number] 03/10/2019 07:50:00 PM EDT [facility] Name Value Range Interpretation Code Description Data Huong rce(s) Supporting Document(s ) UNK > 60 <content [facility] styleCode="Bold"> Medical Cent er EGFR </content>125 GFR<content styleCode="Italic s"> (> 60 GFR)</content> ID Date Data Source Coagulation 03/10/2019 07:50:00 PM [facility] Rout.[id number] EDT Name Value Range Interpretation Description Data Sup porting Code Source(s) Document(s ) INR in 0.80-1.2 Above high normal <content Saint Platelet poor 0 styleCode="Bold" Liv plasma by >INR Medical Coagulation </content>1.22 # Center assay H<content styleCode="Itali cs"> (0.80-1.20 #)</content> aPTT in 25.1-36. <content Saint Platelet poor 5 styleCode="Bold" Liv plasma by >Partial Medical Coagulation Thromboplastin Center assay Time </content>34.2 SEC<content styleCode="Itali cs"> (25.1-36.5 SEC)</content> UNK 9.0-13.0 Above high normal <content Saint styleCode="Bold" Liv >Protime Medical </content>13.5 Center SEC H<content styleCode="Itali cs"> (9.0-13.0 SEC)</content> ID Date Data Source CHMROUTINECCDA.[id number] 03/10/2019 07:50:00 PM EDT [facility] -0400 Name Value Range Interpretation Description Data Sup porting Code Source(s) Document(s ) UNK NEGATIVE <content Saint styleCode="Bold Liv ">Acetone Medical </content>NEGAT Center BETSY <content styleCode="Ital ics"> (NEGATIVE )</content> UNK >= 1.0 <content Saint styleCode="Bold Liv ">AG Ratio Medical </content>1.4 Center <content styleCode="Ital ics"> (>= 1.0 )</content> Lipase 23-300 <content Saint [Enzymatic styleCode="Bold Liv activity/vo ">Lipase Medical lume] in </content>123 Center Serum or IU/L<content Plasma styleCode="Ital ics"> (23-300 IU/L)</content> Protein 6.3-8.2 <content Saint [Mass/volum styleCode="Bold Liv e] in Serum ">Total Protein Medical or Plasma </content>6.6 Center G/DL<content styleCode="Ital ics"> (6.3-8.2 G/DL)</content> UNK 2.3-3.5 <content Saint styleCode="Bold Liv ">Globulin Medical </content>2.8 Center G/DL<content styleCode="Ital ics"> (2.3-3.5 G/DL)</content> ID Date Data Source [facility].[id number] 03/10/2019 07:50:00 PM EDT [facility] Name Value Range Interpretation Description Data Sup porting Code Source(s) Document(s ) Sodium 137-145 <content Saint [Moles/volume] in styleCode="Bold"> Jose Eduardo phs Serum or Plasma Sodium Medical </content>141 Center MEQ/L<content styleCode="Italic s"> (137-145 MEQ/L)</content> Carbon dioxide, 22-30 Below low <content Saint total normal styleCode="Bold"> Liv [Moles/volume] in Carbon Dioxide Medical Serum or Plasma </content>21 Center MEQ/L L<content styleCode="Italic s"> (22-30 MEQ/L)</content> Chloride 98-107 Above high <content Saint [Moles/volume] in normal styleCode="Bold"> Jose Eduardo phs Serum or Plasma Chloride Medical </content>109 Center MEQ/L H<content styleCode="Italic s"> (98-107 MEQ/L)</content> Potassium 3.5-5.3 <content Saint [Moles/volume] in styleCode="Bold"> Jose Eduardo phs Serum or Plasma Potassium Medical </content>4.8 Center MEQ/L<content styleCode="Italic s"> (3.5-5.3 MEQ/L)</content> UNK 7-17 Below low <content [facility] normal styleCode="Bold"> Liv BUN </content>5 Medical MG/DL L<content Center styleCode="Italic s"> (7-17 MG/DL)</content> Creatinine 0.5-1.3 <content Saint [Mass/volume] in styleCode="Bold"> Nito hs Serum or Plasma Creatinine Medical </content>0.7 Center MG/DL<content styleCode="Italic s"> (0.5-1.3 MG/DL)</content> Aspartate 14-36 Above high <content Saint aminotransferase normal styleCode="Bold"> Nito hs [Enzymatic Aspartate Medical activity/volume] Aminotransferase Center in Serum or Plasma (AST) </content>39 IU/L H<content styleCode="Italic s"> (14-36 IU/L)</content> Calcium 8.4-10. <content Saint [Mass/volume] in 2 styleCode="Bold"> Nito hs Serum or Plasma Calcium Medical </content>9.4 Center MG/DL<content styleCode="Italic s"> (8.4-10.2 MG/DL)</content> UNK > 60 <content Saint styleCode="Bold"> Liv EGFR Medical </content>125 Center GFR<content styleCode="Italic s"> (> 60 GFR)</content> Glucose 74-106 Above high <content Saint [Mass/volume] in normal styleCode="Bold"> Nito hs Serum or Plasma Glucose Medical </content>128 Center MG/DL H<content styleCode="Italic s"> (74-106 MG/DL)</content> Alanine 7-30 Above high <content [facility] aminotransferase normal styleCode="Bold"> Nito hs [Enzymatic Alanine Medical activity/volume] Aminotransferase Center in Serum or Plasma (ALT) </content>39 IU/L H<content styleCode="Italic s"> (7-30 IU/L)</content> Alkaline 38-126 <content [facility] phosphatase styleCode="Bold"> Liv [Enzymatic Alkaline Medical activity/volume] Phosphatase (ALP) Cente r in Serum or Plasma </content>85 IU/L<content styleCode="Italic s"> (38-126 IU/L)</content> Bilirubin.total 0.2-1.3 <content [facility] [Mass/volume] in styleCode="Bold"> Nito hs Serum or Plasma Bilirubin Total Medical </content>0.4 Center MG/DL<content styleCode="Italic s"> (0.2-1.3 MG/DL)</content> Albumin 3.5-5.0 <content Saint [Mass/volume] in styleCode="Bold"> Nito hs Serum or Plasma Albumin Medical </content>3.8 Center G/DL<content styleCode="Italic s"> (3.5-5.0 G/DL)</content> ID Date Data Source LIPID.[id number] 02/27/2019 08:40:00 PM EDT [facility] Name Value Range Interpretation Description Data Sup porting Code Source(s) Document(s ) Triglyceride < 150 Above high normal <content Saint [Mass/volume] in styleCode="Kayli Liv Serum or Plasma d">Triglycerid [facility] </content>244 MG/DL H<content styleCode="Velia lics"> (< 150 MG/DL)</conten t> UNK > 60 Below low normal <content Saint styleCode="Kayli Liv d">HDL- Medical Cholesterol Center </content>32 MG/DL L<content styleCode="Velia lics"> (> 60 MG/DL)</conten t> Cholesterol -<200 <content Saint [Mass/volume] in styleCode="Kayli Liv Serum or Plasma d">Cholesterol Medical </content>183 Center MG/DL<content styleCode="Velia lics"> (-<200 MG/DL)</conten t> UNK < 100 Above high normal <content Saint styleCode="Kayli Liv d">LDL-Cholest [facility] </content>102 MG/DL H<content styleCode="Velia lics"> (< 100 MG/DL)</conten t> ID Date Data Source HematologyRou.[id number] 02/27/2019 08:40:00 PM EDT [facility] 0400 Name Value Range Interpretation Description Data Sup porting Code Source(s) Document(s ) Leukocytes 4.4-11.0 <content Saint [#/volume] in styleCode="Bold Liv Blood by ">White Blood Medical Automated count Cell Count Center </content>7.37 KCUMM<content styleCode="Ital ics"> (4.4-11.0 KCUMM)</content > Erythrocyte mean 80.0-100 <content Saint corpuscular .0 styleCode="Bold Liv volume [Entitic ">Mean Medical volume] by Corpuscular Center Automated count Volume </content>69.8 FL<content styleCode="Ital ics"> (80.0-100.0 FL)</content> Hematocrit 36.0-46. <content Saint [Volume 0 styleCode="Bold Liv Fraction] of ">Hematocrit Medical Blood by </content>39.0 Center Automated count %<content styleCode="Ital ics"> (36.0-46.0 %)</content> Erythrocyte mean 26.0-34. Below low normal <content Saint corpuscular 0 styleCode="Bold Liv hemoglobin ">Mean Medical [Entitic mass] Corposcular Center by Automated Hemoglobin count </content>21.1 PG L<content styleCode="Ital ics"> (26.0-34.0 PG)</content> Erythrocytes 4.0-5.1 Above high <content Saint [#/volume] in normal styleCode="Bold Liv Blood by ">Red Blood Medical Automated count Cell Count Center </content>5.59 MCUMM H<content styleCode="Ital ics"> (4.0-5.1 MCUMM)</content > Hemoglobin 12.3-16. Below low normal <content Saint [Mass/volume] in 0 styleCode="Bold Liv Blood ">Hemoglobin Medical </content>11.8 Center G/DL L<content styleCode="Ital ics"> (12.3-16.0 G/DL)</content> Erythrocyte mean 32.0-37. Below low normal <content Saint corpuscular 0 styleCode="Bold Liv hemoglobin ">Mean Corpus. Medical concentration Hgb Center [Mass/volume] by Concentration Automated count (MCHC) </content>30.3 G/DL L<content styleCode="Ital ics"> (32.0-37.0 G/DL)</content> Platelets 130-400 <content Saint [#/volume] in styleCode="Bold Liv Blood by ">Platelet Medical Automated count Count Center </content>159 KCUMM<content styleCode="Ital ics"> (130-400 KCUMM)</content > Platelet mean 8.0-11.0 Above high <content Saint volume [Entitic normal styleCode="Bold Liv volume] in Blood ">Mean Platelet Medical by Automated Volume Center count </content>11.5 FL H<content styleCode="Ital ics"> (8.0-11.0 FL)</content> Erythrocyte 11.5-14. Above high <content Saint distribution 5 normal styleCode="Bold Liv width [Ratio] by ">Red Cell Medical Automated count Distribution Center Width </content>14.9 % H<content styleCode="Ital ics"> (11.5-14.5 %)</content> UNK 1.6-4.9 Above high <content Saint normal styleCode="Bold Liv ">Immature Medical Platelet Center Fraction </content>8.8 % H<content styleCode="Ital ics"> (1.6-4.9 %)</content> UNK 0 <content Saint styleCode="Bold Liv ">Nucleated Red Medical Blood Cell Center </content>0.0 /100<content styleCode="Ital ics"> (0 /100)</content> UNK 0.0 <content Saint styleCode="Bold Liv ">Nucleated Red Medical Blood Cell Center Count </content>0.00 KCUMM<content styleCode="Ital ics"> (0.0 KCUMM)</content > ID Date Data Source GFR(Creatinine).[id number] 02/27/2019 08:40:00 PM EDT [facility] 0-0400 Name Value Range Interpretation Code Description Data Huong rce(s) Supporting Document(s ) UNK > 60 <content [facility] styleCode="Bold"> Medical Cent er EGFR </content>125 GFR<content styleCode="Italic s"> (> 60 GFR)</content> ID Date Data Source Coagulation 02/27/2019 08:40:00 PM [facility] Rout.[id number] EDT Name Value Range Interpretation Description Data Sup porting Code Source(s) Document(s ) INR in 0.80-1.2 <content [facility] Platelet poor 0 styleCode="Bold" Liv plasma by >INR Medical Coagulation </content>1.06 Center assay #<content styleCode="Itali cs"> (0.80-1.20 #)</content> UNK 9.0-13.0 <content Saint styleCode="Bold" Liv >Protime Medical </content>11.8 Center SEC<content styleCode="Itali cs"> (9.0-13.0 SEC)</content> aPTT in 25.1-36. <content Saint Platelet poor 5 styleCode="Bold" Liv plasma by >Partial Medical Coagulation Thromboplastin Center assay Time </content>31.3 SEC<content styleCode="Itali cs"> (25.1-36.5 SEC)</content> ID Date Data Source [employer].[id number] 02/27/2019 08:40:00 PM EDT [facility] -0400 Name Value Range Interpretation Description Data Sup porting Code Source(s) Document(s ) Troponin < 0.034 <content Saint I.cardiac styleCode="Bold Liv [Mass/volume ">Troponin I Medical ] in Serum </content>< Center or Plasma 0.012 NG/ML<content styleCode="Ital ics"> (< 0.034 NG/ML)</content > ID Date Data Source BMP.[id number] 02/27/2019 08:40:00 PM EDT [facility] Name Value Range Interpretation Description Data Sup porting Code Source(s) Document(s ) Sodium 137-145 <content Saint [Moles/volume] styleCode="Kayli Liv in Serum or d">Sodium Medical Plasma </content>142 Center MEQ/L<content styleCode="Velia lics"> (137-145 MEQ/L)</conten t> Chloride 98-107 Above high normal <content Saint [Moles/volume] styleCode="Kayli Allreds in Serum or d">Chloride Medical Plasma </content>108 Center MEQ/L H<content styleCode="Velia lics"> (98-107 MEQ/L)</conten t> Potassium 3.5-5.3 <content Saint [Moles/volume] styleCode="Kayli Allreds in Serum or d">Potassium Medical Plasma </content>4.1 Center MEQ/L<content styleCode="Velia lics"> (3.5-5.3 MEQ/L)</conten t> Carbon 22-30 <content Saint dioxide, total styleCode="Kayli Allreds [Moles/volume] d">Carbon Medical in Serum or Dioxide Center Plasma </content>25 MEQ/L<content styleCode="Velia lics"> (22-30 MEQ/L)</conten t> Calcium 8.4-10.2 <content Saint [Mass/volume] styleCode="Kayli Allreds in Serum or d">Calcium Medical Plasma </content>9.9 Center MG/DL<content styleCode="Velia lics"> (8.4-10.2 MG/DL)</conten t> UNK 7-17 <content Saint styleCode="Kayli Allreds d">BUN Medical </content>11 Center MG/DL<content styleCode="Velia lics"> (7-17 MG/DL)</conten t> Creatinine 0.5-1.3 <content Saint [Mass/volume] styleCode="Kayli Allreds in Serum or d">Creatinine Medical Plasma </content>0.7 Center MG/DL<content styleCode="Velia lics"> (0.5-1.3 MG/DL)</conten t> Glucose 74-106 Above high normal <content Saint [Mass/volume] styleCode="Kayli Allreds in Serum or d">Glucose Medical Plasma </content>123 Center MG/DL H<content styleCode="Velia lics"> (74-106 MG/DL)</conten t> UNK > 60 <content Saint styleCode="Kayli Allreds d">EGFR Medical </content>125 Center GFR<content styleCode="Velia lics"> (> 60 GFR)</content> ID Date Data Source Liver 02/19/2019 05:45:00 AM EDT [facility] Profile.[id number] Name Value Range Interpretation Description Data Sup porting Code Source(s) Document(s ) Alanine 7-30 Above high <content Saint aminotransferase normal styleCode="Bold"> Nito hs [Enzymatic Alanine Medical activity/volume] Aminotransferase Center in Serum or Plasma (ALT) </content>37 IU/L H<content styleCode="Italic s"> (7-30 IU/L)</content> Aspartate 14-36 <content Saint aminotransferase styleCode="Bold"> Nito hs [Enzymatic Aspartate Medical activity/volume] Aminotransferase Center in Serum or Plasma (AST) </content>20 IU/L<content styleCode="Italic s"> (14-36 IU/L)</content> Alkaline 38-126 <content Saint phosphatase styleCode="Bold"> Liv [Enzymatic Alkaline Medical activity/volume] Phosphatase (ALP) Cente r in Serum or Plasma </content>116 IU/L<content styleCode="Italic s"> (38-126 IU/L)</content> Albumin 3.5-5.0 <content Saint [Mass/volume] in styleCode="Bold"> Nito hs Serum or Plasma Albumin Medical </content>4.2 Center G/DL<content styleCode="Italic s"> (3.5-5.0 G/DL)</content> Bilirubin.total 0.2-1.3 Below low <content Saint [Mass/volume] in normal styleCode="Bold"> Nito hs Serum or Plasma Bilirubin Total Medical </content>< 0.2 Center MG/DL L<content styleCode="Italic s"> (0.2-1.3 MG/DL)</content> ID Date Data Source HematologyRou.[id number] 02/19/2019 05:45:00 AM EDT [facility] 0400 Name Value Range Interpretation Description Data Sup porting Code Source(s) Document(s ) Erythrocytes 4.0-5.1 Above high <content Saint [#/volume] in normal styleCode="Bold Liv Blood by ">Red Blood Medical Automated count Cell Count Center </content>5.62 MCUMM H<content styleCode="Ital ics"> (4.0-5.1 MCUMM)</content > Leukocytes 4.4-11.0 Above high <content Saint [#/volume] in normal styleCode="Bold Liv Blood by ">White Blood Medical Automated count Cell Count Center </content>14.82 KCUMM H<content styleCode="Ital ics"> (4.4-11.0 KCUMM)</content > Hemoglobin 12.3-16. Below low normal <content Saint [Mass/volume] in 0 styleCode="Bold Liv Blood ">Hemoglobin Medical </content>12.0 Center G/DL L<content styleCode="Ital ics"> (12.3-16.0 G/DL)</content> Hematocrit 36.0-46. <content Saint [Volume 0 styleCode="Bold Liv Fraction] of ">Hematocrit Medical Blood by </content>38.5 Center Automated count %<content styleCode="Ital ics"> (36.0-46.0 %)</content> Erythrocyte mean 26.0-34. Below low normal <content Saint corpuscular 0 styleCode="Bold Liv hemoglobin ">Mean Medical [Entitic mass] Corposcular Center by Automated Hemoglobin count </content>21.4 PG L<content styleCode="Ital ics"> (26.0-34.0 PG)</content> Erythrocyte mean 80.0-100 <content Saint corpuscular .0 styleCode="Bold Liv volume [Entitic ">Mean Medical volume] by Corpuscular Center Automated count Volume </content>68.5 FL<content styleCode="Ital ics"> (80.0-100.0 FL)</content> Erythrocyte mean 32.0-37. Below low normal <content Saint corpuscular 0 styleCode="Bold Liv hemoglobin ">Mean Corpus. Medical concentration Hgb Center [Mass/volume] by Concentration Automated count (MCHC) </content>31.2 G/DL L<content styleCode="Ital ics"> (32.0-37.0 G/DL)</content> Platelets 130-400 <content Saint [#/volume] in styleCode="Bold Liv Blood by ">Platelet Medical Automated count Count Center </content>202 KCUMM<content styleCode="Ital ics"> (130-400 KCUMM)</content > Erythrocyte 11.5-14. Above high <content Saint distribution 5 normal styleCode="Bold Liv width [Ratio] by ">Red Cell Medical Automated count Distribution Center Width </content>14.8 % H<content styleCode="Ital ics"> (11.5-14.5 %)</content> Platelet mean 8.0-11.0 Above high <content Saint volume [Entitic normal styleCode="Bold Liv volume] in Blood ">Mean Platelet Medical by Automated Volume Center count </content>11.7 FL H<content styleCode="Ital ics"> (8.0-11.0 FL)</content> UNK 0 <content Saint styleCode="Bold Liv ">Nucleated Red Medical Blood Cell Center </content>0.0 /100<content styleCode="Ital ics"> (0 /100)</content> UNK 0.0 <content Saint styleCode="Bold Liv ">Nucleated Red Medical Blood Cell Center Count </content>0.00 KCUMM<content styleCode="Ital ics"> (0.0 KCUMM)</content > UNK 1.6-4.9 Above high <content Saint normal styleCode="Bold Liv ">Immature Medical Platelet Center Fraction </content>6.9 % H<content styleCode="Ital ics"> (1.6-4.9 %)</content> ID Date Data Source GFR(Creatinine).[id number] 02/19/2019 05:45:00 AM EDT [facility] 0-0400 Name Value Range Interpretation Code Description Data Huong rce(s) Supporting Document(s ) UNK > 60 <content [facility] styleCode="Bold"> Medical Cent er EGFR </content>149 GFR<content styleCode="Italic s"> (> 60 GFR)</content> ID Date Data Source MRRAMONA.[id number] 02/19/2019 05:45:00 AM EDT [facility] -0400 Name Value Range Interpretation Description Data Sup porting Code Source(s) Document(s ) UNK 2.3-3.5 <content Saint styleCode="Kayli Allreds d">Globulin Medical </content>2.9 Center G/DL<content styleCode="Velia lics"> (2.3-3.5 G/DL)</content > UNK >= 1.0 <content Saint styleCode="Kayli Liv d">AG Ratio Medical </content>1.4 Center <content styleCode="Velia lics"> (>= 1.0 )</content> UNK 4.2-5.8 Above high normal <content Saint styleCode="Kayli Allreds d">Hemoglobin Medical A1C Center </content>7.8 % H<content styleCode="Velia lics"> (4.2-5.8 %)</content> Phosphate 2.5-4.5 <content Saint [Mass/volume] styleCode="Kayli Allreds in Serum or d">Phosphorus Medical Plasma </content>3.5 Center MG/DL<content styleCode="Velia lics"> (2.5-4.5 MG/DL)</conten t> Magnesium 1.6-2.3 <content Saint [Mass/volume] styleCode="Kayli Allreds in Serum or d">Magnesium Medical Plasma </content>2.0 Center MG/DL<content styleCode="Velia lics"> (1.6-2.3 MG/DL)</conten t> Protein 6.3-8.2 <content [facility] [Mass/volume] styleCode="Kayli Allreds in Serum or d">Total Medical Plasma Protein Center </content>7.1 G/DL<content styleCode="Velia lics"> (6.3-8.2 G/DL)</content > ID Date Data Source [facility].[id number] 02/19/2019 05:45:00 AM EDT [facility] Name Value Range Interpretation Description Data Sup porting Code Source(s) Document(s ) Sodium 137-145 <content [facility] [Moles/volume] in styleCode="Bold"> Jose Eduardo phs Serum or Plasma Sodium Medical </content>143 Center MEQ/L<content styleCode="Italic s"> (137-145 MEQ/L)</content> Potassium 3.5-5.3 <content [facility] [Moles/volume] in styleCode="Bold"> Jose Eduardo phs Serum or Plasma Potassium Medical </content>4.4 Center MEQ/L<content styleCode="Italic s"> (3.5-5.3 MEQ/L)</content> Creatinine 0.5-1.3 <content [facility] [Mass/volume] in styleCode="Bold"> Nito hs Serum or Plasma Creatinine Medical </content>0.6 Center MG/DL<content styleCode="Italic s"> (0.5-1.3 MG/DL)</content> UNK 7-17 <content [facility] styleCode="Bold"> Liv BUN </content>9 Medical MG/DL<content Center styleCode="Italic s"> (7-17 MG/DL)</content> Glucose 74-106 Above high <content [facility] [Mass/volume] in normal styleCode="Bold"> Nito hs Serum or Plasma Glucose Medical </content>202 Center MG/DL H<content styleCode="Italic s"> (74-106 MG/DL)</content> Chloride 98-107 Above high <content [facility] [Moles/volume] in normal styleCode="Bold"> Jose Eduardo [facility] Serum or Plasma Chloride Medical </content>109 Center MEQ/L H<content styleCode="Italic s"> (98-107 MEQ/L)</content> Carbon dioxide, 22-30 Below low <content [facility] total normal styleCode="Bold"> Liv [Moles/volume] in Carbon Dioxide Medical Serum or Plasma </content>21 Center MEQ/L L<content styleCode="Italic s"> (22-30 MEQ/L)</content> UNK > 60 <content [facility] styleCode="Bold"> Liv EGFR Medical </content>149 Center GFR<content styleCode="Italic s"> (> 60 GFR)</content> Alkaline 38-126 <content [facility] phosphatase styleCode="Bold"> Liv [Enzymatic Alkaline Medical activity/volume] Phosphatase (ALP) Cente r in Serum or Plasma </content>116 IU/L<content styleCode="Italic s"> (38-126 IU/L)</content> Calcium 8.4-10. <content [facility] [Mass/volume] in 2 styleCode="Bold"> Nito hs Serum or Plasma Calcium Medical </content>10.2 Center MG/DL<content styleCode="Italic s"> (8.4-10.2 MG/DL)</content> Alanine 7-30 Above high <content [facility] aminotransferase normal styleCode="Bold"> Nito hs [Enzymatic Alanine Medical activity/volume] Aminotransferase Center in Serum or Plasma (ALT) </content>37 IU/L H<content styleCode="Italic s"> (7-30 IU/L)</content> Bilirubin.total 0.2-1.3 Below low <content [facility] [Mass/volume] in normal styleCode="Bold"> Nito hs Serum or Plasma Bilirubin Total Medical </content>< 0.2 Center MG/DL L<content styleCode="Italic s"> (0.2-1.3 MG/DL)</content> Aspartate 14-36 <content [facility] aminotransferase styleCode="Bold"> Nito hs [Enzymatic Aspartate Medical activity/volume] Aminotransferase Center in Serum or Plasma (AST) </content>20 IU/L<content styleCode="Italic s"> (14-36 IU/L)</content> Albumin 3.5-5.0 <content [facility] [Mass/volume] in styleCode="Bold"> Nito hs Serum or Plasma Albumin Medical </content>4.2 Center G/DL<content styleCode="Italic s"> (3.5-5.0 G/DL)</content> ID Date Data Source HematologyRou.[id number] 02/18/2019 10:52:00 AM EDT [facility] 0400 Name Value Range Interpretation Description Data Sup porting Code Source(s) Document(s ) Leukocytes 4.4-11.0 <content [facility] [#/volume] in styleCode="Bold Liv Blood by ">White Blood Medical Automated count Cell Count Center </content>9.58 KCUMM<content styleCode="Ital ics"> (4.4-11.0 KCUMM)</content > Erythrocyte mean 80.0-100 <content [facility] corpuscular .0 styleCode="Bold Liv volume [Entitic ">Mean Medical volume] by Corpuscular Center Automated count Volume </content>69.1 FL<content styleCode="Ital ics"> (80.0-100.0 FL)</content> Erythrocyte mean 26.0-34. Below low normal <content [facility] corpuscular 0 styleCode="Bold Liv hemoglobin ">Mean Medical [Entitic mass] Corposcular Center by Automated Hemoglobin count </content>21.4 PG L<content styleCode="Ital ics"> (26.0-34.0 PG)</content> Hemoglobin 12.3-16. Below low normal <content [facility] [Mass/volume] in 0 styleCode="Bold Liv Blood ">Hemoglobin Medical </content>11.3 Center G/DL L<content styleCode="Ital ics"> (12.3-16.0 G/DL)</content> Erythrocytes 4.0-5.1 Above high <content [facility] [#/volume] in normal styleCode="Bold Liv Blood by ">Red Blood Medical Automated count Cell Count Center </content>5.27 MCUMM H<content styleCode="Ital ics"> (4.0-5.1 MCUMM)</content > Hematocrit 36.0-46. <content [facility] [Volume 0 styleCode="Bold Liv Fraction] of ">Hematocrit Medical Blood by </content>36.4 Center Automated count %<content styleCode="Ital ics"> (36.0-46.0 %)</content> Erythrocyte mean 32.0-37. Below low normal <content [facility] corpuscular 0 styleCode="Bold Liv hemoglobin ">Mean Corpus. Medical concentration Hgb Center [Mass/volume] by Concentration Automated count (MCHC) </content>31.0 G/DL L<content styleCode="Ital ics"> (32.0-37.0 G/DL)</content> UNK 1.6-7.3 <content [facility] styleCode="Bold Liv ">Neutrophil Medical Count Center </content>6.60 KCUMM<content styleCode="Ital ics"> (1.6-7.3 KCUMM)</content > Platelets 130-400 <content [facility] [#/volume] in styleCode="Bold Liv Blood by ">Platelet Medical Automated count Count Center </content>186 KCUMM<content styleCode="Ital ics"> (130-400 KCUMM)</content > Platelet mean 8.0-11.0 <content [facility] volume [Entitic styleCode="Bold Liv volume] in Blood ">Mean Platelet Medical by Automated Volume Center count </content>11.0 FL<content styleCode="Ital ics"> (8.0-11.0 FL)</content> Neutrophils 36-66 Above high <content [facility] [#/volume] in normal styleCode="Bold Liv Blood by ">Neutrophil Medical Automated count </content>69.0 Center % H<content styleCode="Ital ics"> (36-66 %)</content> Erythrocyte 11.5-14. Above high <content [facility] distribution 5 normal styleCode="Bold Liv width [Ratio] by ">Red Cell Medical Automated count Distribution Center Width </content>14.8 % H<content styleCode="Ital ics"> (11.5-14.5 %)</content> UNK 1.0-4.8 <content [facility] styleCode="Bold Liv ">Lymphocyte Medical Count Center </content>2.25 KCUMM<content styleCode="Ital ics"> (1.0-4.8 KCUMM)</content > Monocytes 3.0-10.0 <content [facility] [#/volume] in styleCode="Bold Liv Blood by ">Monocyte Medical Automated count </content>5.1 Center %<content styleCode="Ital ics"> (3.0-10.0 %)</content> UNK 0.2-0.9 <content [facility] styleCode="Bold Liv ">Monocyte Medical Count Center </content>0.49 KCUMM<content styleCode="Ital ics"> (0.2-0.9 KCUMM)</content > Eosinophils 0-5.0 <content [facility] [#/volume] in styleCode="Bold Liv Blood by ">Eosinophil Medical Automated count </content>1.1 Center %<content styleCode="Ital ics"> (0-5.0 %)</content> Lymphocytes 24.0-44. Below low normal <content [facility] [#/volume] in 0 styleCode="Bold Liv Blood by ">Lymphocyte Medical Automated count </content>23.5 Center % L<content styleCode="Ital ics"> (24.0-44.0 %)</content> UNK 0 <content [facility] styleCode="Bold Liv ">Nucleated Red Medical Blood Cell Center </content>0.0 /100<content styleCode="Ital ics"> (0 /100)</content> UNK 0.0-0.6 <content [facility] styleCode="Bold Liv ">Eosinophil Medical Count Center </content>0.11 KCUMM<content styleCode="Ital ics"> (0.0-0.6 KCUMM)</content > UNK 0.0-0.3 <content [facility] styleCode="Bold Liv ">Basophil Medical Count Center </content>0.02 KCUMM<content styleCode="Ital ics"> (0.0-0.3 KCUMM)</content > Basophils 0.0-1.0 <content [facility] [#/volume] in styleCode="Bold Liv Blood by ">Basophil Medical Automated count </content>0.2 Center %<content styleCode="Ital ics"> (0.0-1.0 %)</content> UNK 0-0.1 Above high <content [facility] normal styleCode="Bold Liv ">Immature Medical Granulocyte Center Count </content>0.11 KCUMM H<content styleCode="Ital ics"> (0-0.1 KCUMM)</content > UNK 0.0 <content [facility] styleCode="Bold Liv ">Nucleated Red Medical Blood Cell Center Count </content>0.00 KCUMM<content styleCode="Ital ics"> (0.0 KCUMM)</content > UNK 1.6-4.9 Above high <content [facility] normal styleCode="Bold Liv ">Immature Medical Platelet Center Fraction </content>6.2 % H<content styleCode="Ital ics"> (1.6-4.9 %)</content> UNK < 1 Above high <content [facility] normal styleCode="Bold Liv ">Immature Medical Granulocyte Center Ratio </content>1.1 % H<content styleCode="Ital ics"> (< 1 %)</content> ID Date Data Source GFR(Creatinine).[id number] 02/18/2019 10:52:00 AM EDT [facility] 0-0400 Name Value Range Interpretation Code Description Data Huong rce(s) Supporting Document(s ) UNK > 60 <content [facility] styleCode="Bold"> Medical Cent er EGFR </content>125 GFR<content styleCode="Italic s"> (> 60 GFR)</content> ID Date Data Source [facility].[id number] 02/18/2019 10:52:00 AM EDT [facility] Name Value Range Interpretation Description Data Sup porting Code Source(s) Document(s ) Chloride 98-107 Above high normal <content [facility] [Moles/volume] styleCode="Kayli Liv in Serum or d">Chloride Medical Plasma </content>109 Center MEQ/L H<content styleCode="Velia lics"> (98-107 MEQ/L)</conten t> Potassium 3.5-5.3 <content [facility] [Moles/volume] styleCode="Kayli Liv in Serum or d">Potassium Medical Plasma </content>4.0 Center MEQ/L<content styleCode="Velia lics"> (3.5-5.3 MEQ/L)</conten t> Sodium 137-145 <content [facility] [Moles/volume] styleCode="Kayli Allreds in Serum or d">Sodium Medical Plasma </content>143 Center MEQ/L<content styleCode="Velia lics"> (137-145 MEQ/L)</conten t> Glucose 74-106 Above high normal <content [facility] [Mass/volume] styleCode="Kayli Allreds in Serum or d">Glucose Medical Plasma </content>153 Center MG/DL H<content styleCode="Velia lics"> (74-106 MG/DL)</conten t> Carbon 22-30 <content [facility] dioxide, total styleCode="Kayli Allreds [Moles/volume] d">Carbon Medical in Serum or Dioxide Center Plasma </content>24 MEQ/L<content styleCode="Velia lics"> (22-30 MEQ/L)</conten t> Creatinine 0.5-1.3 <content [facility] [Mass/volume] styleCode="Kayli Allreds in Serum or d">Creatinine Medical Plasma </content>0.7 Center MG/DL<content styleCode="Velia lics"> (0.5-1.3 MG/DL)</conten t> UNK > 60 <content [facility] styleCode="Kayli Allreds d">EGFR Medical </content>125 Center GFR<content styleCode="Velia lics"> (> 60 GFR)</content> Calcium 8.4-10.2 <content [facility] [Mass/volume] styleCode="Kayli Allreds in Serum or d">Calcium Medical Plasma </content>9.8 Center MG/DL<content styleCode="Velia lics"> (8.4-10.2 MG/DL)</conten t> UNK 7-17 <content [facility] styleCode="Kayli Allreds d">BUN Medical </content>10 Center MG/DL<content styleCode="Velia lics"> (7-17 MG/DL)</conten t> ID Date Data Source Liver 02/02/2019 08:11:00 PM EDT [facility] Profile.[id number] Name Value Range Interpretation Description Data Sup porting Code Source(s) Document(s ) Bilirubin.total 0.2-1.3 Below low <content [facility] [Mass/volume] in normal styleCode="Bold"> Nito hs Serum or Plasma Bilirubin Total Medical </content>< 0.2 Center MG/DL L<content styleCode="Italic s"> (0.2-1.3 MG/DL)</content> UNK 0.0-0.3 <content [facility] styleCode="Bold"> [facility] Bilirubin, Direct Medical </content>< 0.2 Center MG/DL<content styleCode="Italic s"> (0.0-0.3 MG/DL)</content> Alkaline 38-126 <content [facility] phosphatase styleCode="Bold"> [facility] [Enzymatic Alkaline Medical activity/volume] Phosphatase (ALP) Cente r in Serum or Plasma </content>97 IU/L<content styleCode="Italic s"> (38-126 IU/L)</content> Alanine 7-30 Above high <content [facility] aminotransferase normal styleCode="Bold"> Nito hs [Enzymatic Alanine Medical activity/volume] Aminotransferase Center in Serum or Plasma (ALT) </content>36 IU/L H<content styleCode="Italic s"> (7-30 IU/L)</content> Aspartate 14-36 <content [facility] aminotransferase styleCode="Bold"> Nito hs [Enzymatic Aspartate Medical activity/volume] Aminotransferase Center in Serum or Plasma (AST) </content>31 IU/L<content styleCode="Italic s"> (14-36 IU/L)</content> Albumin 3.5-5.0 <content [facility] [Mass/volume] in styleCode="Bold"> Nito hs Serum or Plasma Albumin Medical </content>3.8 Center G/DL<content styleCode="Italic s"> (3.5-5.0 G/DL)</content> ID Date Data Source HematologyRou.[id number] 02/02/2019 08:11:00 PM EDT [facility] 0400 Name Value Range Interpretation Description Data Sup porting Code Source(s) Document(s ) Erythrocytes 4.0-5.1 Above high <content [facility] [#/volume] in normal styleCode="Bold Liv Blood by ">Red Blood Medical Automated count Cell Count Center </content>5.14 MCUMM H<content styleCode="Ital ics"> (4.0-5.1 MCUMM)</content > Leukocytes 4.4-11.0 <content [facility] [#/volume] in styleCode="Bold Liv Blood by ">White Blood Medical Automated count Cell Count Center </content>7.55 KCUMM<content styleCode="Ital ics"> (4.4-11.0 KCUMM)</content > Hemoglobin 12.3-16. Below low normal <content [facility] [Mass/volume] in 0 styleCode="Bold Liv Blood ">Hemoglobin Medical </content>10.9 Center G/DL L<content styleCode="Ital ics"> (12.3-16.0 G/DL)</content> Erythrocyte mean 80.0-100 <content [facility] corpuscular .0 styleCode="Bold Liv volume [Entitic ">Mean Medical volume] by Corpuscular Center Automated count Volume </content>70.0 FL<content styleCode="Ital ics"> (80.0-100.0 FL)</content> Erythrocyte 11.5-14. Above high <content [facility] distribution 5 normal styleCode="Bold Liv width [Ratio] by ">Red Cell Medical Automated count Distribution Center Width </content>15.0 % H<content styleCode="Ital ics"> (11.5-14.5 %)</content> Hematocrit 36.0-46. <content [facility] [Volume 0 styleCode="Bold Liv Fraction] of ">Hematocrit Medical Blood by </content>36.0 Center Automated count %<content styleCode="Ital ics"> (36.0-46.0 %)</content> Erythrocyte mean 32.0-37. Below low normal <content [facility] corpuscular 0 styleCode="Bold Liv hemoglobin ">Mean Corpus. Medical concentration Hgb Center [Mass/volume] by Concentration Automated count (MCHC) </content>30.3 G/DL L<content styleCode="Ital ics"> (32.0-37.0 G/DL)</content> Erythrocyte mean 26.0-34. Below low normal <content [facility] corpuscular 0 styleCode="Bold Liv hemoglobin ">Mean Medical [Entitic mass] Corposcular Center by Automated Hemoglobin count </content>21.2 PG L<content styleCode="Ital ics"> (26.0-34.0 PG)</content> UNK 0 <content [facility] styleCode="Bold Liv ">Nucleated Red Medical Blood Cell Center </content>0.0 /100<content styleCode="Ital ics"> (0 /100)</content> Platelets 130-400 <content [facility] [#/volume] in styleCode="Bold Liv Blood by ">Platelet Medical Automated count Count Center </content>162 KCUMM<content styleCode="Ital ics"> (130-400 KCUMM)</content > Platelet mean 8.0-11.0 Above high <content [facility] volume [Entitic normal styleCode="Bold Liv volume] in Blood ">Mean Platelet Medical by Automated Volume Center count </content>11.7 FL H<content styleCode="Ital ics"> (8.0-11.0 FL)</content> UNK 1.6-4.9 Above high <content [facility] normal styleCode="Bold Liv ">Immature Medical Platelet Center Fraction </content>8.0 % H<content styleCode="Ital ics"> (1.6-4.9 %)</content> UNK 0.0 <content [facility] styleCode="Bold Liv ">Nucleated Red Medical Blood Cell Center Count </content>0.00 KCUMM<content styleCode="Ital ics"> (0.0 KCUMM)</content > ID Date Data Source GFR(Creatinine).[id number] 02/02/2019 08:11:00 PM EDT [facility] 0-0400 Name Value Range Interpretation Code Description Data Huong rce(s) Supporting Document(s ) UNK > 60 <content [facility] styleCode="Bold"> Medical Cent er EGFR </content>107 GFR<content styleCode="Italic s"> (> 60 GFR)</content> ID Date Data Source CHMROUTINECCDA.[id number] 02/02/2019 08:11:00 PM EDT [facility] -0400 Name Value Range Interpretation Description Data Sup porting Code Source(s) Document(s ) UNK 30-110 <content [facility] styleCode="Bold Medical ">Amylase Center </content>67 IU/L<content styleCode="Ital ics"> (30-110 IU/L)</content> Lipase 23-300 <content [facility] [Enzymatic styleCode="Bold Medical activity/vo ">Lipase Center lume] in </content>93 Serum or IU/L<content Plasma styleCode="Ital ics"> (23-300 IU/L)</content> ID Date Data Source [facility].[id number] 02/02/2019 08:11:00 PM EDT [facility] Name Value Range Interpretation Description Data Sup porting Code Source(s) Document(s ) Potassium 3.5-5.3 <content [facility] [Moles/volume] in styleCode="Bold"> Jose Eduardo phs Serum or Plasma Potassium Medical </content>4.1 Center MEQ/L<content styleCode="Italic s"> (3.5-5.3 MEQ/L)</content> Sodium 137-145 <content [facility] [Moles/volume] in styleCode="Bold"> Jose Eduardo phs Serum or Plasma Sodium Medical </content>142 Center MEQ/L<content styleCode="Italic s"> (137-145 MEQ/L)</content> Chloride 98-107 Above high <content [facility] [Moles/volume] in normal styleCode="Bold"> Jose Eduardo phs Serum or Plasma Chloride Medical </content>109 Center MEQ/L H<content styleCode="Italic s"> (98-107 MEQ/L)</content> Calcium 8.4-10. <content [facility] [Mass/volume] in 2 styleCode="Bold"> Nito hs Serum or Plasma Calcium Medical </content>9.8 Center MG/DL<content styleCode="Italic s"> (8.4-10.2 MG/DL)</content> Carbon dioxide, 22-30 <content [facility] total styleCode="Bold"> Liv [Moles/volume] in Carbon Dioxide Medical Serum or Plasma </content>26 Center MEQ/L<content styleCode="Italic s"> (22-30 MEQ/L)</content> Creatinine 0.5-1.3 <content [facility] [Mass/volume] in styleCode="Bold"> Nito hs Serum or Plasma Creatinine Medical </content>0.8 Center MG/DL<content styleCode="Italic s"> (0.5-1.3 MG/DL)</content> Glucose 74-106 Above high <content [facility] [Mass/volume] in normal styleCode="Bold"> Nito hs Serum or Plasma Glucose Medical </content>158 Center MG/DL H<content styleCode="Italic s"> (74-106 MG/DL)</content> UNK 7-17 <content [facility] styleCode="Bold"> Liv BUN </content>10 Medical MG/DL<content Center styleCode="Italic s"> (7-17 MG/DL)</content> Alkaline 38-126 <content [facility] phosphatase styleCode="Bold"> Liv [Enzymatic Alkaline Medical activity/volume] Phosphatase (ALP) Cente r in Serum or Plasma </content>97 IU/L<content styleCode="Italic s"> (38-126 IU/L)</content> Alanine 7-30 Above high <content [facility] aminotransferase normal styleCode="Bold"> Nito hs [Enzymatic Alanine Medical activity/volume] Aminotransferase Center in Serum or Plasma (ALT) </content>36 IU/L H<content styleCode="Italic s"> (7-30 IU/L)</content> Aspartate 14-36 <content [facility] aminotransferase styleCode="Bold"> Nito hs [Enzymatic Aspartate Medical activity/volume] Aminotransferase Center in Serum or Plasma (AST) </content>31 IU/L<content styleCode="Italic s"> (14-36 IU/L)</content> UNK > 60 <content [facility] styleCode="Bold"> Liv EGFR Medical </content>107 Center GFR<content styleCode="Italic s"> (> 60 GFR)</content> Bilirubin.total 0.2-1.3 Below low <content [facility] [Mass/volume] in normal styleCode="Bold"> Nito hs Serum or Plasma Bilirubin Total Medical </content>< 0.2 Center MG/DL L<content styleCode="Italic s"> (0.2-1.3 MG/DL)</content> Albumin 3.5-5.0 <content [facility] [Mass/volume] in styleCode="Bold"> Nito hs Serum or Plasma Albumin Medical </content>3.8 Center G/DL<content styleCode="Italic s"> (3.5-5.0 G/DL)</content> ID Date Data Source Urinalysis.[id number] 02/02/2019 07:35:00 PM EDT [facility] 0 Name Value Range Interpretation Description Data Sup porting Code Source(s) Document(s ) Color of Urine YELLOW <content [facility] styleCode="Kayli Peck d">Color, Medical Urine Center </content>YELL OW <content styleCode="Velia lics"> (YELLOW )</content> UNK CLEAR <content [facility] styleCode="Kayli Peck d">Urine Medical Clarity Center </content>ROB R <content styleCode="Velia lics"> (CLEAR )</content> Glucose NEGATIVE <content [facility] [Mass/volume] styleCode="Kayli Peck in Urine by d">Urine Medical Test strip Glucose Center </content>NEGA TIVE MG/DL<content styleCode="Velia lics"> (NEGATIVE MG/DL)</conten t> UNK NEGATIVE <content [facility] styleCode="Kayli Peck d">Urine Medical Bilirubin Center </content>NEGA TIVE <content styleCode="Velia lics"> (NEGATIVE )</content> Hemoglobin NEGATIVE <content [facility] [Presence] in styleCode="Kayli Peck Urine by Test d">Urine Blood Medical strip </content>MODE Center RATE <content styleCode="Velia lics"> (NEGATIVE )</content> Specific 1.015-1.02 <content [facility] gravity of 5 styleCode="Kayli Liv Urine by Test d">Urine Medical strip Specific Center [place] </content>1.02 5 <content styleCode="Velia lics"> (1.015-1.025 )</content> Ketones NEGATIVE <content [facility] [Mass/volume] styleCode="Kayli Liv in Urine by d">Urine Medical Test strip Ketone Center </content>NEGA TIVE MG/DL<content styleCode="Velia lics"> (NEGATIVE MG/DL)</conten t> pH of Urine by 4.5-8.0 <content [facility] Test strip styleCode="Kayli Liv d">Urine pH Medical </content>6.0 Center <content styleCode="Velia lics"> (4.5-8.0 )</content> Protein NEGATIVE <content [facility] [Mass/volume] styleCode="Kayli Liv in Urine by d">Urine Medical Test strip Protein Center </content>NEGA TIVE MG/DL<content styleCode="Velia lics"> (NEGATIVE MG/DL)</conten t> Nitrite NEGATIVE <content [facility] [Presence] in styleCode="Kayli Allreds Urine by Test d">Urine Medical strip Nitrite Center </content>NEGA TIVE <content styleCode="Velia lics"> (NEGATIVE )</content> Leukocyte NEGATIVE <content [facility] esterase styleCode="Kayli Liv [Presence] in d">Urine Medical Urine by Test Leukocyte Center strip </content>NEGA TIVE <content styleCode="Velia lics"> (NEGATIVE )</content> Urobilinogen 0.2-1.0 <content [facility] [Units/volume] styleCode="Kayli Liv in Urine by d">Urine Medical Test strip Urobilinogen Center </content>0.2 MG/DL<content styleCode="Velia lics"> (0.2-1.0 MG/DL)</conten t> UNK 0-3 <content [facility] styleCode="Kayli Liv d">Urine Red Medical Blood Cell Center </content>0-3 HPF<content styleCode="Velia lics"> (0-3 HPF)</content> UNK NEGATIVE <content [facility] styleCode="Kayli Liv d">Urine Medical Bacteria Center </content>FEW HPF<content styleCode="Velia lics"> (NEGATIVE HPF)</content> UNK 0-3 <content [facility] styleCode="Kayli Liv d">Urine White Medical Blood Cell Center </content>3-5 HPF<content styleCode="Velia lics"> (0-3 HPF)</content> UNK <content [facility] styleCode="Kayli Liv d">Epithelial Medical Cell Center </content>20-2 5 LPF (Reference Range: not available)<br/ > ID Date Data Source Microbiology.[id number] 01/08/2019 09:13:00 PM EDT [facility] 400 Name Value Range Interpretation Description Data Sup porting Code Source(s) Document(s ) UNK <item[facility] styleCode="[facility] ld">Culture Center Report </content>
<table><tbo dy><tr><td>Sp ecimen Number:</td>< td>[id number]< /td></tr><tr> <td>Sample Collection Date/Time: </td><td>2018 9:13 PM</td></tr>< tr><td>Specim en Source:</td>< td>THROAT</td ></tr><tr><td >Throat-Nose Culture:</td> <td>Collectio n Plate Date: 01/08/2019 21:33 </td></tr><tr ><td>Culture Status:</td>< td>Preliminar y </td></tr><tr ><td>Culture Report:</td>< td>Culture in progress </td></tr></t body></table> </item> UNK <item><[facility] styleCode="[facility] ld">Culture Center Status </content>
<table><tbo dy><tr><td>Sp ecimen Number:</td>< td>[id number]< /td></tr><tr> <td>Sample Collection Date/Time: </td><td>2018 9:13 PM</td></tr>< tr><td>Specim en Source:</td>< td>THROAT</td ></tr><tr><td >Culture Report:</td>< td>Culture in progress </td></tr><tr ><td>Throat-N ose Culture:</td> <td>Collectio n Plate Date: 01/08/2019 21:33 </td></tr><tr ><td>Culture Status:</td>< td>Preliminar y </td></tr></t body></table> </item> Streptococcus NEGATIVE <item><conten [facility] pyogenes Ag danni Peck [Presence] in styleCode="[facility] Unspecified ld">Rapid Center specimen by Strep A Immunoassay </content>
<table><tbo dy><tr><td>Sp ecimen Number:</td>< td>[id number]< /td></tr><tr> <td>Sample Collection Date/Time: </td><td>2018 9:13 PM</td></tr>< tr><td>Specim en Source:</td>< td>THROAT</td ></tr><tr><td >Rapid Strep A:</td><td>NE GATIVE </td></tr></t body></table> </item> ID Date Data Source Urinalysis 12/02/2018 05:29:00 PM EDT [facility] Name Value Range Interpretation Description Data Sup porting Code Source(s) Document(s ) Color of Urine YELLOW <content [facility] styleCode="Kayli Liv d">Color, Medical Urine Center </content>YELL OW <content styleCode="Velia lics"> (YELLOW )</content> UNK NEGATIVE <content [facility] styleCode="Kayli Liv d">Urine Medical Bilirubin Center </content>NEGA TIVE <content styleCode="Velia lics"> (NEGATIVE )</content> Glucose NEGATIVE <content [facility] [Mass/volume] styleCode="Kayli Peck in Urine by d">Urine Medical Test strip Glucose Center </content>NEGA TIVE MG/DL<content styleCode="Velia lics"> (NEGATIVE MG/DL)</conten t> Ketones NEGATIVE <content [facility] [Mass/volume] styleCode="Kayli Peck in Urine by d">Urine Medical Test strip [facility] Center </content>NEGA TIVE MG/DL<content styleCode="Velia lics"> (NEGATIVE MG/DL)</conten t> UNK CLEAR <content [facility] styleCode="Kayli Allreds d">Urine Medical Clarity Center </content>ROB R <content styleCode="Velia lics"> (CLEAR )</content> Hemoglobin NEGATIVE <content [facility] [Presence] in styleCode="Kayli Peck Urine by Test d">Urine Blood Medical strip </content>NEGA Center TIVE <content styleCode="Velia lics"> (NEGATIVE )</content> Protein NEGATIVE <content [facility] [Mass/volume] styleCode="Kayli Peck in Urine by d">Urine Medical Test strip Protein Center </content>NEGA TIVE MG/DL<content styleCode="Velia lics"> (NEGATIVE MG/DL)</conten t> Specific 1.015-1.02 <content [facility] gravity of 5 styleCode="Kayli Peck Urine by Test d">Urine Medical strip Specific Center [place] </content>1.02 0 NM<content styleCode="Velia lics"> (1.015-1.025 NM)</content> pH of Urine by 4.5-8.0 <content [facility] Test strip styleCode="Kayli Liv d">Urine pH Medical </content>6.5 Center NM<content styleCode="Velia lics"> (4.5-8.0 NM)</content> Urobilinogen 0.2-1.0 <content [facility] [Units/volume] styleCode="Kayli Peck in Urine by d">Urine Medical Test strip Urobilinogen Center </content>0.2 MG/DL<content styleCode="Velia lics"> (0.2-1.0 MG/DL)</conten t> Leukocyte NEGATIVE <content [facility] esterase styleCode="Kayli Allreds [Presence] in d">Urine Medical Urine by Test Leukocyte Center strip </content>NEGA TIVE <content styleCode="Velia lics"> (NEGATIVE )</content> Nitrite NEGATIVE <content [facility] [Presence] in styleCode="Kayli Allreds Urine by Test d">Urine Medical strip Nitrite Center </content>NEGA TIVE <content styleCode="Velia lics"> (NEGATIVE )</content> UNK CLEAR <content [facility] styleCode="Kayli Liv d">Urine Medical Clarity Center </content>ROB R <content styleCode="Velia lics"> (CLEAR )</content> Color of Urine YELLOW <content [facility] styleCode="Kayli Liv d">Color, Medical Urine Center </content>YELL OW <content styleCode="Velia lics"> (YELLOW )</content> Ketones NEGATIVE <content [facility] [Mass/volume] styleCode="Kayli Allreds in Urine by d">Urine Medical Test strip [facility] </content>NEGA TIVE MG/DL<content styleCode="Velia lics"> (NEGATIVE MG/DL)</conten t> UNK NEGATIVE <content [facility] styleCode="Kayli Allreds d">Urine Medical Bilirubin Center </content>NEGA TIVE <content styleCode="Velia lics"> (NEGATIVE )</content> Glucose NEGATIVE <content [facility] [Mass/volume] styleCode="Kayli Allreds in Urine by d">Urine Medical Test strip Glucose Center </content>>=10 00 MG/DL<content styleCode="Velia lics"> (NEGATIVE MG/DL)</conten t> pH of Urine by 4.5-8.0 <content [facility] Test strip styleCode="Kayli Liv d">Urine pH Medical </content>5.5 Center NM<content styleCode="Velia lics"> (4.5-8.0 NM)</content> Hemoglobin NEGATIVE <content [facility] [Presence] in styleCode="Kayli Liv Urine by Test d">Urine Blood Medical strip </content>NEGA Center TIVE <content styleCode="Velia lics"> (NEGATIVE )</content> Specific 1.015-1.02 Below low normal <content [facility] gravity of 5 styleCode="Kayli Liv Urine by Test d">Urine Medical strip Specific Center [place] </content><= 1.005 L<content styleCode="Velia lics"> (1.015-1.025 )</content> Nitrite NEGATIVE <content [facility] [Presence] in styleCode="Kayli Liv Urine by Test d">Urine Medical strip Nitrite Center </content>NEGA TIVE <content styleCode="Velia lics"> (NEGATIVE )</content> Urobilinogen 0.2-1.0 <content [facility] [Units/volume] styleCode="Kayli Liv in Urine by d">Urine Medical Test strip Urobilinogen Center </content>0.2 MG/DL<content styleCode="Velia lics"> (0.2-1.0 MG/DL)</conten t> Protein NEGATIVE <content [facility] [Mass/volume] styleCode="Kayli Liv in Urine by d">Urine Medical Test strip Protein Center </content>NEGA TIVE MG/DL<content styleCode="Velia lics"> (NEGATIVE MG/DL)</conten t> Leukocyte NEGATIVE <content [facility] esterase styleCode="Kayli Liv [Presence] in d">Urine Medical Urine by Test Leukocyte Center strip </content>NEGA TIVE <content styleCode="Velia lics"> (NEGATIVE )</content> UNK CLEAR <content [facility] styleCode="Kayli Liv d">Urine Medical Clarity Center </content>Sl CLOUDY <content styleCode="Velia lics"> (CLEAR )</content> Color of Urine YELLOW <content [facility] styleCode="Kayli Liv d">Color, Medical Urine Center </content>YELL OW <content styleCode="Velia lics"> (YELLOW )</content> Ketones NEGATIVE <content [facility] [Mass/volume] styleCode="Kayli Allreds in Urine by d">Urine Medical Test strip [facility] Center </content>NEGA TIVE MG/DL<content styleCode="Velia lics"> (NEGATIVE MG/DL)</conten t> UNK NEGATIVE <content [facility] styleCode="Kayli Liv d">Urine Medical Bilirubin Center </content>NEGA TIVE <content styleCode="Velia lics"> (NEGATIVE )</content> Glucose NEGATIVE <content [facility] [Mass/volume] styleCode="Kayli Liv in Urine by d">Urine Medical Test strip Glucose Center </content>>=10 00 MG/DL<content styleCode="Velia lics"> (NEGATIVE MG/DL)</conten t> Protein NEGATIVE <content [facility] [Mass/volume] styleCode="Kayli Liv in Urine by d">Urine Medical Test strip Protein Center </content>NEGA TIVE MG/DL<content styleCode="Velia lics"> (NEGATIVE MG/DL)</conten t> pH of Urine by 4.5-8.0 <content [facility] Test strip styleCode="Kayli Liv d">Urine pH Medical </content>5.5 Center NM<content styleCode="Velia lics"> (4.5-8.0 NM)</content> Hemoglobin NEGATIVE <content [facility] [Presence] in styleCode="Kayli Allreds Urine by Test d">Urine Blood Medical strip </content>TRAC Center E <content styleCode="Velia lics"> (NEGATIVE )</content> Specific 1.015-1.02 Below low normal <content [facility] gravity of 5 styleCode="Kayli Allreds Urine by Test d">Urine Medical strip Specific Center [place] </content>1.01 0 NM L<content styleCode="Velia lics"> (1.015-1.025 NM)</content> Leukocyte NEGATIVE <content [facility] esterase styleCode="Kayli Allreds [Presence] in d">Urine Medical Urine by Test Leukocyte Center strip </content>NEGA TIVE <content styleCode="Velia lics"> (NEGATIVE )</content> Nitrite NEGATIVE <content [facility] [Presence] in styleCode="Kayli Peck Urine by Test d">Urine Medical strip Nitrite Center </content>NEGA TIVE <content styleCode="Velia lics"> (NEGATIVE )</content> Urobilinogen 0.2-1.0 <content [facility] [Units/volume] styleCode="Kayli Peck in Urine by d">Urine Medical Test strip Urobilinogen Center </content>0.2 MG/DL<content styleCode="Velia lics"> (0.2-1.0 MG/DL)</conten t> UNK NEGATIVE <content [facility] styleCode="Kayli Liv d">Urine Medical Bacteria Center </content>MODE RATE HPF<content styleCode="Velia lics"> (NEGATIVE HPF)</content> UNK 0-3 <content [facility] styleCode="Kayli Liv d">Urine White Medical Blood Cell Center </content>0-3 HPF<content styleCode="Velia lics"> (0-3 HPF)</content> UNK 0-3 <content [facility] styleCode="Kayli Liv d">Urine Red Medical Blood Cell Center </content>3-5 HPF<content styleCode="Velia lics"> (0-3 HPF)</content> UNK <content [facility] styleCode="Kayli Liv d">Yeast Cell Medical </content>FEW Center HPF (Reference Range: not available)<br/ > UNK <content [facility] styleCode="Kayli Liv d">Epithelial Medical Cell Center </content>10 - 20 LPF (Reference Range: not available)<br/ > UNK CLEAR <content [facility] styleCode="Kayli Liv d">Urine Medical Clarity Center </content>Sl CLOUDY <content styleCode="Velia lics"> (CLEAR )</content> Color of Urine YELLOW <content [facility] styleCode="Kayli Liv d">Color, Medical Urine Center </content>YELL OW <content styleCode="Velia lics"> (YELLOW )</content> Specific 1.015-1.02 <content [facility] gravity of 5 styleCode="Kayli Liv Urine by Test d">Urine Medical strip Specific Center [place] </content>1.02 5 NM<content styleCode="Velia lics"> (1.015-1.025 NM)</content> Ketones NEGATIVE <content [facility] [Mass/volume] styleCode="Kayli Liv in Urine by d">Urine Medical Test strip Ketone Center </content>NEGA TIVE MG/DL<content styleCode="Velia lics"> (NEGATIVE MG/DL)</conten t> UNK NEGATIVE <content [facility] styleCode="Kayli Liv d">Urine Medical Bilirubin Center </content>NEGA TIVE <content styleCode="Velia lics"> (NEGATIVE )</content> Glucose NEGATIVE <content [facility] [Mass/volume] styleCode="Kayli Liv in Urine by d">Urine Medical Test strip Glucose Center </content>>=10 00 MG/DL<content styleCode="Velia lics"> (NEGATIVE MG/DL)</conten t> pH of Urine by 4.5-8.0 <content [facility] Test strip styleCode="Kayli Liv d">Urine pH Medical </content>5.5 Center NM<content styleCode="Velia lics"> (4.5-8.0 NM)</content> Hemoglobin NEGATIVE <content [facility] [Presence] in styleCode="Kayli Liv Urine by Test d">Urine Blood Medical strip </content>MODE Center RATE <content styleCode="Velia lics"> (NEGATIVE )</content> Leukocyte NEGATIVE <content [facility] esterase styleCode="Kayli Liv [Presence] in d">Urine Medical Urine by Test Leukocyte Center strip </content>NEGA TIVE <content styleCode="Velia lics"> (NEGATIVE )</content> Nitrite NEGATIVE <content [facility] [Presence] in styleCode="Kayli Liv Urine by Test d">Urine Medical strip Nitrite Center </content>NEGA TIVE <content styleCode="Velia lics"> (NEGATIVE )</content> Urobilinogen 0.2-1.0 <content [facility] [Units/volume] styleCode="Kayli Liv in Urine by d">Urine Medical Test strip Urobilinogen Center </content>0.2 MG/DL<content styleCode="Velia lics"> (0.2-1.0 MG/DL)</conten t> Protein NEGATIVE <content [facility] [Mass/volume] styleCode="Kayli Liv in Urine by d">Urine Medical Test strip Protein Center </content>NEGA TIVE MG/DL<content styleCode="Velia lics"> (NEGATIVE MG/DL)</conten t> UNK NEGATIVE <content [facility] styleCode="Kayli Liv d">Urine Medical Bacteria Center </content>FEW HPF<content styleCode="Velia lics"> (NEGATIVE HPF)</content> UNK 0-3 <content [facility] styleCode="Kayli Liv d">Urine White Medical Blood Cell Center </content>0-3 HPF<content styleCode="Velia lics"> (0-3 HPF)</content> UNK 0-3 <content [facility] styleCode="Kayli Liv d">Urine Red Medical Blood Cell Center </content>5 - 10 HPF<content styleCode="Velia lics"> (0-3 HPF)</content> UNK <content [facility] styleCode="Kayli Liv d">Yeast Cell Medical </content>FEW Center HPF (Reference Range: not available)<br/ > UNK <content [facility] styleCode="Kayli Liv d">Epithelial Medical Cell Center </content>10 - 20 LPF (Reference Range: not available)<br/ > Color of Urine YELLOW <content [facility] styleCode="Kayli Liv d">Color, Medical Urine Center </content>YELL OW <content styleCode="Velia lics"> (YELLOW )</content> Ketones NEGATIVE <content [facility] [Mass/volume] styleCode="Kayli Liv in Urine by d">Urine Medical Test strip [facility] </content>TRAC E MG/DL<content styleCode="Velia lics"> (NEGATIVE MG/DL)</conten t> UNK NEGATIVE <content [facility] styleCode="Kayli Liv d">Urine Medical Bilirubin Center </content>NEGA TIVE <content styleCode="Velia lics"> (NEGATIVE )</content> Glucose NEGATIVE <content [facility] [Mass/volume] styleCode="Kayli Allreds in Urine by d">Urine Medical Test strip Glucose Center </content>500 MG/DL<content styleCode="Velia lics"> (NEGATIVE MG/DL)</conten t> UNK CLEAR <content [facility] styleCode="Kayli Liv d">Urine Medical Clarity Center </content>Sl CLOUDY <content styleCode="Velia lics"> (CLEAR )</content> Urobilinogen 0.2-1.0 <content [facility] [Units/volume] styleCode="Kayli Peck in Urine by d">Urine Medical Test strip Urobilinogen Center </content>0.2 MG/DL<content styleCode="Velia lics"> (0.2-1.0 MG/DL)</conten t> Protein NEGATIVE <content [facility] [Mass/volume] styleCode="Kayli Allreds in Urine by d">Urine Medical Test strip Protein Center </content>TRAC E MG/DL<content styleCode="Velia lics"> (NEGATIVE MG/DL)</conten t> pH of Urine by 4.5-8.0 <content [facility] Test strip styleCode="Kayli Liv d">Urine pH Medical </content>6.0 Center NM<content styleCode="Velia lics"> (4.5-8.0 NM)</content> Hemoglobin NEGATIVE <content [facility] [Presence] in styleCode="Kayli Allreds Urine by Test d">Urine Blood Medical strip </content>MODE Center RATE <content styleCode="Velia lics"> (NEGATIVE )</content> Specific 1.015-1.02 Above high <content [facility] gravity of 5 normal styleCode="Kayli Allreds Urine by Test d">Urine Medical strip Specific Center [place] </content>>= 1.030 H<content styleCode="Velia lics"> (1.015-1.025 )</content> UNK 0-3 <content [facility] styleCode="Kayli Liv d">Urine Red Medical Blood Cell Center </content>5 - 10 HPF<content styleCode="Velia lics"> (0-3 HPF)</content> Leukocyte NEGATIVE <content [facility] esterase styleCode="Kayli Peck [Presence] in d">Urine Medical Urine by Test Leukocyte Center strip </content>TRAC E <content styleCode="Velia lics"> (NEGATIVE )</content> Nitrite NEGATIVE <content [facility] [Presence] in styleCode="Kayli Peck Urine by Test d">Urine Medical strip Nitrite Center </content>NEGA TIVE <content styleCode="Velia lics"> (NEGATIVE )</content> UNK NONE SEEN <content [facility] styleCode="Kayli Allreds d">Urine Mucus Medical </content>MODE Center RATE LPF<content styleCode="Velia lics"> (NONE SEEN LPF)</content> UNK <content [facility] styleCode="Kayli Allreds d">Epithelial Medical Cell Center </content>20-2 5 LPF (Reference Range: not available)<br/ > UNK NEGATIVE <content [facility] styleCode="Kayli Allreds d">Urine Medical Bacteria Center </content>MODE RATE HPF<content styleCode="Velia lics"> (NEGATIVE HPF)</content> UNK 0-3 <content [facility] styleCode="Kayli Allreds d">Urine White Medical Blood Cell Center </content>50 - 100 HPF<content styleCode="Velia lics"> (0-3 HPF)</content> UNK NEGATIVE <content [facility] styleCode="Kayli Allreds d">Urine Medical Bilirubin Center </content>NEGA TIVE <content styleCode="Velia lics"> (NEGATIVE )</content> Glucose NEGATIVE <content [facility] [Mass/volume] styleCode="Kayli Peck in Urine by d">Urine Medical Test strip Glucose Center </content>NEGA TIVE MG/DL<content styleCode="Velia lics"> (NEGATIVE MG/DL)</conten t> UNK CLEAR <content [facility] styleCode="Kayli Allreds d">Urine Medical Clarity Center </content>ROB R <content styleCode="Velia lics"> (CLEAR )</content> Color of Urine YELLOW <content [facility] styleCode="Kayli Liv d">Color, Medical Urine Center </content>YELL OW <content styleCode="Velia lics"> (YELLOW )</content> pH of Urine by 4.5-8.0 <content [facility] Test strip styleCode="Kayli Liv d">Urine pH Medical </content>6.0 Center NM<content styleCode="Velia lics"> (4.5-8.0 NM)</content> Hemoglobin NEGATIVE <content [facility] [Presence] in styleCode="Kayli Liv Urine by Test d">Urine Blood Medical strip </content>LARG Center E <content styleCode="Velai lics"> (NEGATIVE )</content> Specific 1.015-1.02 <content [facility] gravity of 5 styleCode="Kayli Liv Urine by Test d">Urine Medical strip Specific Center [place] </content>1.02 5 NM<content styleCode="Velia lics"> (1.015-1.025 NM)</content> Ketones NEGATIVE <content [facility] [Mass/volume] styleCode="Kayli Liv in Urine by d">Urine Medical Test strip [facility] Center </content>NEGA TIVE MG/DL<content styleCode="Velia lics"> (NEGATIVE MG/DL)</conten t> Leukocyte NEGATIVE <content [facility] esterase styleCode="Kayli Liv [Presence] in d">Urine Medical Urine by Test Leukocyte Center strip </content>NEGA TIVE <content styleCode="Velia lics"> (NEGATIVE )</content> Nitrite NEGATIVE <content [facility] [Presence] in styleCode="Kayli Liv Urine by Test d">Urine Medical strip Nitrite Center </content>NEGA TIVE <content styleCode="Velia lics"> (NEGATIVE )</content> Urobilinogen 0.2-1.0 <content [facility] [Units/volume] styleCode="Kayli Liv in Urine by d">Urine Medical Test strip Urobilinogen Center </content>0.2 MG/DL<content styleCode="Velia lics"> (0.2-1.0 MG/DL)</conten t> Protein NEGATIVE <content [facility] [Mass/volume] styleCode="Kayli Allreds in Urine by d">Urine Medical Test strip Protein Center </content>NEGA TIVE MG/DL<content styleCode="Velia lics"> (NEGATIVE MG/DL)</conten t> UNK <content [facility] styleCode="Kayli Liv d">Epithelial Medical Cell Center </content>2-5 LPF (Reference Range: not available)<br/ > UNK NEGATIVE <content [facility] styleCode="Kayli Liv d">Urine Medical Bacteria Center </content>FEW HPF<content styleCode="Velia lics"> (NEGATIVE HPF)</content> UNK 0-3 <content [facility] styleCode="Kayli Liv d">Urine White Medical Blood Cell Center </content>0-3 HPF<content styleCode="Velia lics"> (0-3 HPF)</content> UNK 0-3 <content [facility] styleCode="Kayli Liv d">Urine Red Medical Blood Cell Center </content>100- 200 HPF<content styleCode="Velia lics"> (0-3 HPF)</content> Ketones NEGATIVE <content [facility] [Mass/volume] styleCode="Kayli Allreds in Urine by d">Urine Medical Test strip [facility] </content>TRAC E MG/DL<content styleCode="Velia lics"> (NEGATIVE MG/DL)</conten t> UNK NEGATIVE <content [facility] styleCode="Kayli Liv d">Urine Medical Bilirubin Center </content>NEGA TIVE <content styleCode="Velia lics"> (NEGATIVE )</content> Glucose NEGATIVE <content [facility] [Mass/volume] styleCode="Kayli Allreds in Urine by d">Urine Medical Test strip Glucose Center </content>250 MG/DL<content styleCode="Velia lics"> (NEGATIVE MG/DL)</conten t> UNK CLEAR <content [facility] styleCode="Kayli Liv d">Urine Medical Clarity Center </content>ROB R <content styleCode="Velia lics"> (CLEAR )</content> Color of Urine YELLOW <content [facility] styleCode="Kayli Liv d">Color, Medical Urine Center </content>YELL OW <content styleCode="Velia lics"> (YELLOW )</content> Urobilinogen 0.2-1.0 <content [facility] [Units/volume] styleCode="Kayli Liv in Urine by d">Urine Medical Test strip Urobilinogen Center </content>0.2 MG/DL<content styleCode="Velia lics"> (0.2-1.0 MG/DL)</conten t> Protein NEGATIVE <content [facility] [Mass/volume] styleCode="Kayli Liv in Urine by d">Urine Medical Test strip Protein Center </content>NEGA TIVE MG/DL<content styleCode="Velia lics"> (NEGATIVE MG/DL)</conten t> pH of Urine by 4.5-8.0 <content [facility] Test strip styleCode="Kayli Liv d">Urine pH Medical </content>7.0 Center <content styleCode="Velia lics"> (4.5-8.0 )</content> Hemoglobin NEGATIVE <content [facility] [Presence] in styleCode="Kayli Liv Urine by Test d">Urine Blood Medical strip </content>NEGA Center TIVE <content styleCode="Velia lics"> (NEGATIVE )</content> Specific 1.015-1.02 <content [facility] gravity of 5 styleCode="Kayli Liv Urine by Test d">Urine Medical strip Specific Center [place] </content>1.02 0 <content styleCode="Velia lics"> (1.015-1.025 )</content> Leukocyte NEGATIVE <content [facility] esterase styleCode="Kayli Liv [Presence] in d">Urine Medical Urine by Test Leukocyte Center strip </content>NEGA TIVE <content styleCode="Velia lics"> (NEGATIVE )</content> Nitrite NEGATIVE <content [facility] [Presence] in styleCode="Kayli Liv Urine by Test d">Urine Medical strip Nitrite Center </content>NEGA TIVE <content styleCode="Velia lics"> (NEGATIVE )</content> ID Date Data Source LIPID 12/02/2018 05:10:00 PM EDT [facility] Name Value Range Interpretation Description Data Sup porting Code Source(s) Document(s ) Triglyceride < 150 Above high normal <content [facility] [Mass/volume] styleCode="Bold"> Liv in Serum or Triglycerides Medical Plasma </content>192 Center MG/DL H<content styleCode="Italic s"> (< 150 MG/DL)</content> UNK > 60 Below low normal <content Saint styleCode="Bold"> Liv HDL- Cholesterol Medical </content>49 Center MG/DL L<content styleCode="Italic s"> (> 60 MG/DL)</content> Cholesterol -<200 <content [facility] [Mass/volume] styleCode="Bold"> Liv in Serum or Cholesterol Medical Plasma </content>181 Center MG/DL<content styleCode="Italic s"> (-<200 MG/DL)</content> UNK < 100 <content [facility] styleCode="Bold"> Liv LDL-Cholesterol Medical </content>94 Center MG/DL<content styleCode="Italic s"> (< 100 MG/DL)</content> UNK <content [facility] styleCode="Bold"> Liv LDL-Cholesterol Medical </content> Center (Reference Range: not available)
<c ontent styleCode="xLocal PreformattedText" >Triglycerides are >250 mg/dl; therefore, the LDL calculation is invalid.
Chol esterol electrophoresis is recommended if medically appropriate.</con tent> UNK > 60 Below low normal <content [facility] styleCode="Bold"> Liv HDL- Cholesterol Medical </content>37 Center MG/DL L<content styleCode="Italic s"> (> 60 MG/DL)</content> Cholesterol -<200 <content [facility] [Mass/volume] styleCode="Bold"> Liv in Serum or Cholesterol Medical Plasma </content>185 Center MG/DL<content styleCode="Italic s"> (-<200 MG/DL)</content> Triglyceride < 150 Above high normal <content [facility] [Mass/volume] styleCode="Bold"> Liv in Serum or Triglycerides Medical Plasma </content>441 Center MG/DL H<content styleCode="Italic s"> (< 150 MG/DL)</content> ID Date Data Source HematologyRou 12/02/2018 05:10:00 PM EDT [facility] Name Value Range Interpretation Description Data Sup porting Code Source(s) Document(s ) Leukocytes 4.4-11.0 Above high <content [facility] [#/volume] in normal styleCode="Bold Liv Blood by ">White Blood Medical Automated count Cell Count Center </content>13.43 KCUMM H<content styleCode="Ital ics"> (4.4-11.0 KCUMM)</content > Hematocrit 36.0-46. <content [facility] [Volume 0 styleCode="Bold Liv Fraction] of ">Hematocrit Medical Blood by </content>38.1 Center Automated count %<content styleCode="Ital ics"> (36.0-46.0 %)</content> Erythrocytes 4.0-5.1 Above high <content [facility] [#/volume] in normal styleCode="Bold Liv Blood by ">Red Blood Medical Automated count Cell Count Center </content>5.37 MCUMM H<content styleCode="Ital ics"> (4.0-5.1 MCUMM)</content > Hemoglobin 12.3-16. Below low normal <content [facility] [Mass/volume] in 0 styleCode="Bold Liv Blood ">Hemoglobin Medical </content>11.6 Center G/DL L<content styleCode="Ital ics"> (12.3-16.0 G/DL)</content> Erythrocyte 11.5-14. <content [facility] distribution 5 styleCode="Bold Liv width [Ratio] by ">Red Cell Medical Automated count Distribution Center Width </content>13.7 %<content styleCode="Ital ics"> (11.5-14.5 %)</content> Erythrocyte mean 80.0-100 <content [facility] corpuscular .0 styleCode="Bold Liv volume [Entitic ">Mean Medical volume] by Corpuscular Center Automated count Volume </content>70.9 FL<content styleCode="Ital ics"> (80.0-100.0 FL)</content> Erythrocyte mean 26.0-34. Below low normal <content [facility] corpuscular 0 styleCode="Bold Liv hemoglobin ">Mean Medical [Entitic mass] Corposcular Center by Automated Hemoglobin count </content>21.6 PG L<content styleCode="Ital ics"> (26.0-34.0 PG)</content> Erythrocyte mean 32.0-37. Below low normal <content [facility] corpuscular 0 styleCode="Bold Liv hemoglobin ">Mean Corpus. Medical concentration Hgb Center [Mass/volume] by Concentration Automated count (MCHC) </content>30.4 G/DL L<content styleCode="Ital ics"> (32.0-37.0 G/DL)</content> Platelet mean 8.0-11.0 Above high <content [facility] volume [Entitic normal styleCode="Bold Liv volume] in Blood ">Mean Platelet Medical by Automated Volume Center count </content>12.3 FL H<content styleCode="Ital ics"> (8.0-11.0 FL)</content> UNK 0.0 <content Saint styleCode="Bold Liv ">Nucleated Red Medical Blood Cell Center Count </content>0.00 KCUMM<content styleCode="Ital ics"> (0.0 KCUMM)</content > UNK 0 <content Saint styleCode="Bold Liv ">Nucleated Red Medical Blood Cell Center </content>0.0 /100<content styleCode="Ital ics"> (0 /100)</content> Platelets 130-400 <content [facility] [#/volume] in styleCode="Bold Liv Blood by ">Platelet Medical Automated count Count Center </content>192 KCUMM<content styleCode="Ital ics"> (130-400 KCUMM)</content > Erythrocyte mean 80.0-100 <content [facility] corpuscular .0 styleCode="Bold Liv volume [Entitic ">Mean Medical volume] by Corpuscular Center Automated count Volume </content>70.0 FL<content styleCode="Ital ics"> (80.0-100.0 FL)</content> Hematocrit 36.0-46. <content [facility] [Volume 0 styleCode="Bold Liv Fraction] of ">Hematocrit Medical Blood by </content>39.6 Center Automated count %<content styleCode="Ital ics"> (36.0-46.0 %)</content> Hemoglobin 12.3-16. Below low normal <content [facility] [Mass/volume] in 0 styleCode="Bold Liv Blood ">Hemoglobin Medical </content>12.2 Center G/DL L<content styleCode="Ital ics"> (12.3-16.0 G/DL)</content> Erythrocytes 4.0-5.1 Above high <content [facility] [#/volume] in normal styleCode="Bold Liv Blood by ">Red Blood Medical Automated count Cell Count Center </content>5.66 [facility] H<content styleCode="Ital ics"> (4.0-5.1 [facility])</content > Leukocytes 4.4-11.0 Above high <content [facility] [#/volume] in normal styleCode="Bold Liv Blood by ">White Blood Medical Automated count Cell Count Center </content>12.17 [facility] H<content styleCode="Ital ics"> (4.4-11.0 [facility])</content > Platelets 130-400 <content [facility] [#/volume] in styleCode="Bold Liv Blood by ">Platelet Medical Automated count Count Center </content>200 [facility]<content styleCode="Ital ics"> (130-400 [facility])</content > Erythrocyte 11.5-14. <content [facility] distribution 5 styleCode="Bold Liv width [Ratio] by ">Red Cell Medical Automated count Distribution Center Width </content>13.7 %<content styleCode="Ital ics"> (11.5-14.5 %)</content> Erythrocyte mean 32.0-37. Below low normal <content [facility] corpuscular 0 styleCode="Bold Liv hemoglobin ">Mean Corpus. Medical concentration Hgb Center [Mass/volume] by Concentration Automated count (MCHC) </content>30.8 G/DL L<content styleCode="Ital ics"> (32.0-37.0 G/DL)</content> Erythrocyte mean 26.0-34. Below low normal <content [facility] corpuscular 0 styleCode="Bold Liv hemoglobin ">Mean Medical [Entitic mass] Corposcular Center by Automated Hemoglobin count </content>21.6 PG L<content styleCode="Ital ics"> (26.0-34.0 PG)</content> Lymphocytes 24.0-44. Below low normal <content [facility] [#/volume] in 0 styleCode="Bold Liv Blood by ">Lymphocyte Medical Automated count </content>12.9 Center % L<content styleCode="Ital ics"> (24.0-44.0 %)</content> UNK 1.6-7.3 Above high <content [facility] normal styleCode="Bold Liv ">Neutrophil Medical Count Center </content>10.32 [facility] H<content styleCode="Ital ics"> (1.6-7.3 [facility])</content > Neutrophils 36-66 Above high <content [facility] [#/volume] in normal styleCode="Bold Liv Blood by ">Neutrophil Medical Automated count </content>84.8 Center % H<content styleCode="Ital ics"> (36-66 %)</content> Platelet mean 8.0-11.0 Above high <content [facility] volume [Entitic normal styleCode="Bold Liv volume] in Blood ">Mean Platelet Medical by Automated Volume Center count </content>11.6 FL H<content styleCode="Ital ics"> (8.0-11.0 FL)</content> Monocytes 3.0-10.0 Below low normal <content [facility] [#/volume] in styleCode="Bold Liv Blood by ">Monocyte Medical Automated count </content>1.5 % Center L<content styleCode="Ital ics"> (3.0-10.0 %)</content> UNK 1.0-4.8 <content [facility] styleCode="Bold Liv ">Lymphocyte Medical Count Center </content>1.57 [facility]<content styleCode="Ital ics"> (1.0-4.8 [facility])</content > UNK 0.0-0.6 <content [facility] styleCode="Bold Liv ">Eosinophil Medical Count Center </content>0.00 [facility]<content styleCode="Ital ics"> (0.0-0.6 [facility])</content > Eosinophils 0-5.0 <content [facility] [#/volume] in styleCode="Bold Liv Blood by ">Eosinophil Medical Automated count </content>0.0 Center %<content styleCode="Ital ics"> (0-5.0 %)</content> UNK 0.2-0.9 Below low normal <content [facility] styleCode="Bold Liv ">Monocyte Medical Count Center </content>0.18 [facility] L<content styleCode="Ital ics"> (0.2-0.9 [facility])</content > UNK 0-0.1 <content [facility] styleCode="Bold Liv ">Immature Medical Granulocyte Center Count </content>0.10 [facility]<content styleCode="Ital ics"> (0-0.1 [facility])</content > UNK 0.0 <content [facility] styleCode="Bold Liv ">Nucleated Red Medical Blood Cell Center Count </content>0.00 [facility]<content styleCode="Ital ics"> (0.0 [facility])</content > UNK 0 <content [facility] styleCode="Bold Liv ">Nucleated Red Medical Blood Cell Center </content>0.0 /100<content styleCode="Ital ics"> (0 /100)</content> UNK 0.0-0.3 <content [facility] styleCode="Bold Liv ">Basophil Medical Count Center </content>0.00 [facility]<content styleCode="Ital ics"> (0.0-0.3 [facility])</content > Basophils 0.0-1.0 <content [facility] [#/volume] in styleCode="Bold Liv Blood by ">Basophil Medical Automated count </content>0.0 Center %<content styleCode="Ital ics"> (0.0-1.0 %)</content> UNK 1.6-4.9 Above high <content [facility] normal styleCode="Bold Liv ">Immature Medical Platelet Center Fraction </content>8.0 % H<content styleCode="Ital ics"> (1.6-4.9 %)</content> UNK < 1 <content [facility] styleCode="Bold Liv ">Immature Medical Granulocyte Center Ratio </content>0.8 %<content styleCode="Ital ics"> (< 1 %)</content> Erythrocytes 4.0-5.1 Above high <content [facility] [#/volume] in normal styleCode="Bold Liv Blood by ">Red Blood Medical Automated count Cell Count Center </content>5.35 [facility] H<content styleCode="Ital ics"> (4.0-5.1 [facility])</content > Leukocytes 4.4-11.0 <content [facility] [#/volume] in styleCode="Bold Liv Blood by ">White Blood Medical Automated count Cell Count Center </content>9.69 [facility]<content styleCode="Ital ics"> (4.4-11.0 [facility])</content > Erythrocyte mean 26.0-34. Below low normal <content [facility] corpuscular 0 styleCode="Bold Liv hemoglobin ">Mean Medical [Entitic mass] Corposcular Center by Automated Hemoglobin count </content>21.7 PG L<content styleCode="Ital ics"> (26.0-34.0 PG)</content> Erythrocyte mean 80.0-100 <content [facility] corpuscular .0 styleCode="Bold Ilv volume [Entitic ">Mean Medical volume] by Corpuscular Center Automated count Volume </content>70.1 FL<content styleCode="Ital ics"> (80.0-100.0 FL)</content> Hematocrit 36.0-46. <content [facility] [Volume 0 styleCode="Bold Liv Fraction] of ">Hematocrit Medical Blood by </content>37.5 Center Automated count %<content styleCode="Ital ics"> (36.0-46.0 %)</content> Hemoglobin 12.3-16. Below low normal <content [facility] [Mass/volume] in 0 styleCode="Bold Liv Blood ">Hemoglobin Medical </content>11.6 Center G/DL L<content styleCode="Ital ics"> (12.3-16.0 G/DL)</content> Platelet mean 8.0-11.0 Above high <content [facility] volume [Entitic normal styleCode="Bold Liv volume] in Blood ">Mean Platelet Medical by Automated Volume Center count </content>12.1 FL H<content styleCode="Ital ics"> (8.0-11.0 FL)</content> Platelets 130-400 <content [facility] [#/volume] in styleCode="Bold Liv Blood by ">Platelet Medical Automated count Count Center </content>242 [facility]<content styleCode="Ital ics"> (130-400 [facility])</content > Erythrocyte 11.5-14. <content [facility] distribution 5 styleCode="Bold Liv width [Ratio] by ">Red Cell Medical Automated count Distribution Center Width </content>13.7 %<content styleCode="Ital ics"> (11.5-14.5 %)</content> Erythrocyte mean 32.0-37. Below low normal <content [facility] corpuscular 0 styleCode="Bold Liv hemoglobin ">Mean Corpus. Medical concentration Hgb Center [Mass/volume] by Concentration Automated count (MCHC) </content>30.9 G/DL L<content styleCode="Ital ics"> (32.0-37.0 G/DL)</content> UNK 0.0 <content [facility] styleCode="Bold Liv ">Nucleated Red Medical Blood Cell Center Count </content>0.00 [facility]<content styleCode="Ital ics"> (0.0 [facility])</content > UNK 0 <content [facility] styleCode="Bold Liv ">Nucleated Red Medical Blood Cell Center </content>0.0 /100<content styleCode="Ital ics"> (0 /100)</content> Erythrocytes 4.0-5.1 Above high <content [facility] [#/volume] in normal styleCode="Bold Liv Blood by ">Red Blood Medical Automated count Cell Count Center </content>5.15 [facility] H<content styleCode="Ital ics"> (4.0-5.1 [facility])</content > Leukocytes 4.4-11.0 <content [facility] [#/volume] in styleCode="Bold Liv Blood by ">White Blood Medical Automated count Cell Count Center </content>9.19 [facility]<content styleCode="Ital ics"> (4.4-11.0 [facility])</content > Hematocrit 36.0-46. <content [facility] [Volume 0 styleCode="Bold Liv Fraction] of ">Hematocrit Medical Blood by </content>36.4 Center Automated count %<content styleCode="Ital ics"> (36.0-46.0 %)</content> Hemoglobin 12.3-16. Below low normal <content [facility] [Mass/volume] in 0 styleCode="Bold Liv Blood ">Hemoglobin Medical </content>11.1 Center G/DL L<content styleCode="Ital ics"> (12.3-16.0 G/DL)</content> Erythrocyte 11.5-14. Above high <content [facility] distribution 5 normal styleCode="Bold Liv width [Ratio] by ">Red Cell Medical Automated count Distribution Center Width </content>15.0 % H<content styleCode="Ital ics"> (11.5-14.5 %)</content> Erythrocyte mean 32.0-37. Below low normal <content [facility] corpuscular 0 styleCode="Bold Liv hemoglobin ">Mean Corpus. Medical concentration Hgb Center [Mass/volume] by Concentration Automated count (MCHC) </content>30.5 G/DL L<content styleCode="Ital ics"> (32.0-37.0 G/DL)</content> Erythrocyte mean 26.0-34. Below low normal <content [facility] corpuscular 0 styleCode="Bold Liv hemoglobin ">Mean Medical [Entitic mass] Corposcular Center by Automated Hemoglobin count </content>21.6 PG L<content styleCode="Ital ics"> (26.0-34.0 PG)</content> Erythrocyte mean 80.0-100 <content [facility] corpuscular .0 styleCode="Bold Liv volume [Entitic ">Mean Medical volume] by Corpuscular Center Automated count Volume </content>70.7 FL<content styleCode="Ital ics"> (80.0-100.0 FL)</content> UNK 1.6-7.3 <content [facility] styleCode="Bold Liv ">Neutrophil Medical Count Center </content>4.20 [facility]<content styleCode="Ital ics"> (1.6-7.3 [facility])</content > Neutrophils 36-66 <content [facility] [#/volume] in styleCode="Bold Liv Blood by ">Neutrophil Medical Automated count </content>45.8 Center %<content styleCode="Ital ics"> (36-66 %)</content> Platelet mean 8.0-11.0 Above high <content [facility] volume [Entitic normal styleCode="Bold Liv volume] in Blood ">Mean Platelet Medical by Automated Volume Center count </content>11.7 FL H<content styleCode="Ital ics"> (8.0-11.0 FL)</content> Platelets 130-400 <content [facility] [#/volume] in styleCode="Bold Liv Blood by ">Platelet Medical Automated count Count Center </content>193 [facility]<content styleCode="Ital ics"> (130-400 [facility])</content > Monocytes 3.0-10.0 <content [facility] [#/volume] in styleCode="Bold Liv Blood by ">Monocyte Medical Automated count </content>6.6 Center %<content styleCode="Ital ics"> (3.0-10.0 %)</content> UNK 1.0-4.8 <content [facility] styleCode="Bold Liv ">Lymphocyte Medical Count Center </content>4.00 [facility]<content styleCode="Ital ics"> (1.0-4.8 [facility])</content > Lymphocytes 24.0-44. <content [facility] [#/volume] in 0 styleCode="Bold Liv Blood by ">Lymphocyte Medical Automated count </content>43.5 Center %<content styleCode="Ital ics"> (24.0-44.0 %)</content> UNK 0.0-0.6 <content [facility] styleCode="Bold Liv ">Eosinophil Medical Count Center </content>0.08 [facility]<content styleCode="Ital ics"> (0.0-0.6 [facility])</content > Eosinophils 0-5.0 <content [facility] [#/volume] in styleCode="Bold Liv Blood by ">Eosinophil Medical Automated count </content>0.9 Center %<content styleCode="Ital ics"> (0-5.0 %)</content> UNK 0.2-0.9 <content [facility] styleCode="Bold Liv ">Monocyte Medical Count Center </content>0.61 [facility]<content styleCode="Ital ics"> (0.2-0.9 [facility])</content > UNK 0.0 <content [facility] styleCode="Bold Liv ">Nucleated Red Medical Blood Cell Center Count </content>0.00 [facility]<content styleCode="Ital ics"> (0.0 [facility])</content > UNK 0 <content [facility] styleCode="Bold Liv ">Nucleated Red Medical Blood Cell Center </content>0.0 /100<content styleCode="Ital ics"> (0 /100)</content> UNK 0.0-0.3 <content [facility] styleCode="Bold Liv ">Basophil Medical Count Center </content>0.04 [facility]<content styleCode="Ital ics"> (0.0-0.3 [facility])</content > Basophils 0.0-1.0 <content [facility] [#/volume] in styleCode="Bold Liv Blood by ">Basophil Medical Automated count </content>0.4 Center %<content styleCode="Ital ics"> (0.0-1.0 %)</content> UNK < 1 Above high <content [facility] normal styleCode="Bold Liv ">Immature Medical Granulocyte Center Ratio </content>2.8 % H<content styleCode="Ital ics"> (< 1 %)</content> UNK 0-0.1 Above high <content [facility] normal styleCode="Bold Liv ">Immature Medical Granulocyte Center Count </content>0.26 [facility] H<content styleCode="Ital ics"> (0-0.1 [facility])</content > Hemoglobin 12.3-16. Below low normal <content [facility] [Mass/volume] in 0 styleCode="Bold Liv Blood ">Hemoglobin Medical </content>11.5 Center G/DL L<content styleCode="Ital ics"> (12.3-16.0 G/DL)</content> Erythrocytes 4.0-5.1 Above high <content [facility] [#/volume] in normal styleCode="Bold Liv Blood by ">Red Blood Medical Automated count Cell Count Center </content>5.30 [facility] H<content styleCode="Ital ics"> (4.0-5.1 [facility])</content > Leukocytes 4.4-11.0 <content [facility] [#/volume] in styleCode="Bold Liv Blood by ">White Blood Medical Automated count Cell Count Center </content>9.39 [facility]<content styleCode="Ital ics"> (4.4-11.0 [facility])</content > Erythrocyte mean 26.0-34. Below low normal <content [facility] corpuscular 0 styleCode="Bold Liv hemoglobin ">Mean Medical [Entitic mass] Corposcular Center by Automated Hemoglobin count </content>21.7 PG L<content styleCode="Ital ics"> (26.0-34.0 PG)</content> Erythrocyte mean 80.0-100 <content [facility] corpuscular .0 styleCode="Bold Liv volume [Entitic ">Mean Medical volume] by Corpuscular Center Automated count Volume </content>69.1 FL<content styleCode="Ital ics"> (80.0-100.0 FL)</content> Hematocrit 36.0-46. <content [facility] [Volume 0 styleCode="Bold Liv Fraction] of ">Hematocrit Medical Blood by </content>36.6 Center Automated count %<content styleCode="Ital ics"> (36.0-46.0 %)</content> Platelet mean 8.0-11.0 Above high <content [facility] volume [Entitic normal styleCode="Bold Liv volume] in Blood ">Mean Platelet Medical by Automated Volume Center count </content>11.1 FL H<content styleCode="Ital ics"> (8.0-11.0 FL)</content> Platelets 130-400 <content [facility] [#/volume] in styleCode="Bold Liv Blood by ">Platelet Medical Automated count Count Center </content>172 [facility]<content styleCode="Ital ics"> (130-400 [facility])</content > Erythrocyte 11.5-14. Above high <content [facility] distribution 5 normal styleCode="Bold Liv width [Ratio] by ">Red Cell Medical Automated count Distribution Center Width </content>15.0 % H<content styleCode="Ital ics"> (11.5-14.5 %)</content> Erythrocyte mean 32.0-37. Below low normal <content [facility] corpuscular 0 styleCode="Bold Liv hemoglobin ">Mean Corpus. Medical concentration Hgb Center [Mass/volume] by Concentration Automated count (MCHC) </content>31.4 G/DL L<content styleCode="Ital ics"> (32.0-37.0 G/DL)</content> UNK 1.0-4.8 <content [facility] styleCode="Bold Liv ">Lymphocyte Medical Count Center </content>3.10 [facility]<content styleCode="Ital ics"> (1.0-4.8 [facility])</content > Lymphocytes 24.0-44. <content [facility] [#/volume] in 0 styleCode="Bold Liv Blood by ">Lymphocyte Medical Automated count </content>33.0 Center %<content styleCode="Ital ics"> (24.0-44.0 %)</content> UNK 1.6-7.3 <content [facility] styleCode="Bold Liv ">Neutrophil Medical Count Center </content>5.02 [facility]<content styleCode="Ital ics"> (1.6-7.3 [facility])</content > Neutrophils 36-66 <content [facility] [#/volume] in styleCode="Bold Liv Blood by ">Neutrophil Medical Automated count </content>53.5 Center %<content styleCode="Ital ics"> (36-66 %)</content> UNK 0.0-0.6 <content [facility] styleCode="Bold Liv ">Eosinophil Medical Count Center </content>0.17 [facility]<content styleCode="Ital ics"> (0.0-0.6 [facility])</content > Eosinophils 0-5.0 <content [facility] [#/volume] in styleCode="Bold Liv Blood by ">Eosinophil Medical Automated count </content>1.8 Center %<content styleCode="Ital ics"> (0-5.0 %)</content> UNK 0.2-0.9 <content [facility] styleCode="Bold Liv ">Monocyte Medical Count Center </content>0.90 [facility]<content styleCode="Ital ics"> (0.2-0.9 [facility])</content > Monocytes 3.0-10.0 <content [facility] [#/volume] in styleCode="Bold Liv Blood by ">Monocyte Medical Automated count </content>9.6 Center %<content styleCode="Ital ics"> (3.0-10.0 %)</content> UNK 0 <content [facility] styleCode="Bold Liv ">Nucleated Red Medical Blood Cell Center </content>0.0 /100<content styleCode="Ital ics"> (0 /100)</content> UNK 0.0-0.3 <content [facility] styleCode="Bold Liv ">Basophil Medical Count Center </content>0.03 [facility]<content styleCode="Ital ics"> (0.0-0.3 [facility])</content > Basophils 0.0-1.0 <content [facility] [#/volume] in styleCode="Bold Liv Blood by ">Basophil Medical Automated count </content>0.3 Center %<content styleCode="Ital ics"> (0.0-1.0 %)</content> UNK < 1 Above high <content [facility] normal styleCode="Bold Liv ">Immature Medical Granulocyte Center Ratio </content>1.8 % H<content styleCode="Ital ics"> (< 1 %)</content> UNK 0-0.1 Above high <content [facility] normal styleCode="Bold Liv ">Immature Medical Granulocyte Center Count </content>0.17 [facility] H<content styleCode="Ital ics"> (0-0.1 [facility])</content > UNK 0.0 <content [facility] styleCode="Bold Liv ">Nucleated Red Medical Blood Cell Center Count </content>0.00 [facility]<content styleCode="Ital ics"> (0.0 [facility])</content > UNK 1.6-4.9 Above high <content [facility] normal styleCode="Bold Liv ">Immature Medical Platelet Center Fraction </content>5.9 % H<content styleCode="Ital ics"> (1.6-4.9 %)</content> Hemoglobin 12.3-16. Below low normal <content [facility] [Mass/volume] in 0 styleCode="Bold Liv Blood ">Hemoglobin Medical </content>11.8 Center G/DL L<content styleCode="Ital ics"> (12.3-16.0 G/DL)</content> Erythrocytes 4.0-5.1 Above high <content [facility] [#/volume] in normal styleCode="Bold Lvi Blood by ">Red Blood Medical Automated count Cell Count Center </content>5.41 [facility] H<content styleCode="Ital ics"> (4.0-5.1 [facility])</content > Leukocytes 4.4-11.0 Above high <content [facility] [#/volume] in normal styleCode="Bold Liv Blood by ">White Blood Medical Automated count Cell Count Center </content>19.36 [facility] H<content styleCode="Ital ics"> (4.4-11.0 [facility])</content > Erythrocyte mean 26.0-34. Below low normal <content [facility] corpuscular 0 styleCode="Bold Liv hemoglobin ">Mean Medical [Entitic mass] Corposcular Center by Automated Hemoglobin count </content>21.8 PG L<content styleCode="Ital ics"> (26.0-34.0 PG)</content> Erythrocyte mean 80.0-100 <content [facility] corpuscular .0 styleCode="Bold Liv volume [Entitic ">Mean Medical volume] by Corpuscular Center Automated count Volume </content>69.5 FL<content styleCode="Ital ics"> (80.0-100.0 FL)</content> Hematocrit 36.0-46. <content [facility] [Volume 0 styleCode="Bold Liv Fraction] of ">Hematocrit Medical Blood by </content>37.6 Center Automated count %<content styleCode="Ital ics"> (36.0-46.0 %)</content> Platelet mean 8.0-11.0 <content [facility] volume [Entitic styleCode="Bold Liv volume] in Blood ">Mean Platelet Medical by Automated Volume Center count </content>10.5 FL<content styleCode="Ital ics"> (8.0-11.0 FL)</content> Platelets 130-400 <content [facility] [#/volume] in styleCode="Bold Liv Blood by ">Platelet Medical Automated count Count Center </content>189 [facility]<content styleCode="Ital ics"> (130-400 [facility])</content > Erythrocyte 11.5-14. Above high <content [facility] distribution 5 normal styleCode="Bold Liv width [Ratio] by ">Red Cell Medical Automated count Distribution Center Width </content>15.9 % H<content styleCode="Ital ics"> (11.5-14.5 %)</content> Erythrocyte mean 32.0-37. Below low normal <content [facility] corpuscular 0 styleCode="Bold Liv hemoglobin ">Mean Corpus. Medical concentration Hgb Center [Mass/volume] by Concentration Automated count (MCHC) </content>31.4 G/DL L<content styleCode="Ital ics"> (32.0-37.0 G/DL)</content> UNK 0.0 <content [facility] styleCode="Bold Liv ">Nucleated Red Medical Blood Cell Center Count </content>0.00 [facility]<content styleCode="Ital ics"> (0.0 [facility])</content > UNK 0 <content [facility] styleCode="Bold Liv ">Nucleated Red Medical Blood Cell Center </content>0.0 /100<content styleCode="Ital ics"> (0 /100)</content> Hemoglobin 12.3-16. Below low normal <content [facility] [Mass/volume] in 0 styleCode="Bold Liv Blood ">Hemoglobin Medical </content>11.3 Center G/DL L<content styleCode="Ital ics"> (12.3-16.0 G/DL)</content> Erythrocytes 4.0-5.1 Above high <content [facility] [#/volume] in normal styleCode="Bold Liv Blood by ">Red Blood Medical Automated count Cell Count Center </content>5.18 [facility] H<content styleCode="Ital ics"> (4.0-5.1 [facility])</content > Leukocytes 4.4-11.0 <content [facility] [#/volume] in styleCode="Bold Liv Blood by ">White Blood Medical Automated count Cell Count Center </content>8.69 [facility]<content styleCode="Ital ics"> (4.4-11.0 [facility])</content > Erythrocyte mean 32.0-37. Below low normal <content [facility] corpuscular 0 styleCode="Bold Liv hemoglobin ">Mean Corpus. Medical concentration Hgb Center [Mass/volume] by Concentration Automated count (MCHC) </content>31.2 G/DL L<content styleCode="Ital ics"> (32.0-37.0 G/DL)</content> Erythrocyte mean 26.0-34. Below low normal <content [facility] corpuscular 0 styleCode="Bold Liv hemoglobin ">Mean Medical [Entitic mass] Corposcular Center by Automated Hemoglobin count </content>21.8 PG L<content styleCode="Ital ics"> (26.0-34.0 PG)</content> Erythrocyte mean 80.0-100 <content [facility] corpuscular .0 styleCode="Bold Liv volume [Entitic ">Mean Medical volume] by Corpuscular Center Automated count Volume </content>69.9 FL<content styleCode="Ital ics"> (80.0-100.0 FL)</content> Hematocrit 36.0-46. <content [facility] [Volume 0 styleCode="Bold Liv Fraction] of ">Hematocrit Medical Blood by </content>36.2 Center Automated count %<content styleCode="Ital ics"> (36.0-46.0 %)</content> UNK 1.6-7.3 <content [facility] styleCode="Bold Liv ">Neutrophil Medical Count Center </content>4.30 [facility]<content styleCode="Ital ics"> (1.6-7.3 [facility])</content > Neutrophils 36-66 <content [facility] [#/volume] in styleCode="Bold Liv Blood by ">Neutrophil Medical Automated count </content>49.4 Center %<content styleCode="Ital ics"> (36-66 %)</content> Platelet mean 8.0-11.0 Above high <content [facility] volume [Entitic normal styleCode="Bold Liv volume] in Blood ">Mean Platelet Medical by Automated Volume Center count </content>11.1 FL H<content styleCode="Ital ics"> (8.0-11.0 FL)</content> Platelets 130-400 <content [facility] [#/volume] in styleCode="Bold Liv Blood by ">Platelet Medical Automated count Count Center </content>176 [facility]M<content styleCode="Ital ics"> (130-400 [facility])</content > Erythrocyte 11.5-14. Above high <content [facility] distribution 5 normal styleCode="Bold Liv width [Ratio] by ">Red Cell Medical Automated count Distribution Center Width </content>15.9 % H<content styleCode="Ital ics"> (11.5-14.5 %)</content> UNK 0.2-0.9 <content [facility] styleCode="Bold Liv ">Monocyte Medical Count Center </content>0.57 [facility]<content styleCode="Ital ics"> (0.2-0.9 [facility])</content > Monocytes 3.0-10.0 <content [facility] [#/volume] in styleCode="Bold Liv Blood by ">Monocyte Medical Automated count </content>6.6 Center %<content styleCode="Ital ics"> (3.0-10.0 %)</content> UNK 1.0-4.8 <content [facility] styleCode="Bold Liv ">Lymphocyte Medical Count Center </content>3.43 [facility]<content styleCode="Ital ics"> (1.0-4.8 [facility])</content > Lymphocytes 24.0-44. <content [facility] [#/volume] in 0 styleCode="Bold Liv Blood by ">Lymphocyte Medical Automated count </content>39.5 Center %<content styleCode="Ital ics"> (24.0-44.0 %)</content> UNK 0 <content [facility] styleCode="Bold Liv ">Nucleated Red Medical Blood Cell Center </content>0.0 /100<content styleCode="Ital ics"> (0 /100)</content> UNK 0.0-0.3 <content [facility] styleCode="Bold Liv ">Basophil Medical Count Center </content>0.03 [facility]<content styleCode="Ital ics"> (0.0-0.3 [facility])</content > Basophils 0.0-1.0 <content [facility] [#/volume] in styleCode="Bold Liv Blood by ">Basophil Medical Automated count </content>0.3 Center %<content styleCode="Ital ics"> (0.0-1.0 %)</content> UNK 0.0-0.6 <content [facility] styleCode="Bold Liv ">Eosinophil Medical Count Center </content>0.17 [facility]<content styleCode="Ital ics"> (0.0-0.6 [facility])</content > Eosinophils 0-5.0 <content [facility] [#/volume] in styleCode="Bold Liv Blood by ">Eosinophil Medical Automated count </content>2.0 Center %<content styleCode="Ital ics"> (0-5.0 %)</content> UNK < 1 Above high <content [facility] normal styleCode="Bold Liv ">Immature Medical Granulocyte Center Ratio </content>2.2 % H<content styleCode="Ital ics"> (< 1 %)</content> UNK 0-0.1 Above high <content [facility] normal styleCode="Bold Liv ">Immature Medical Granulocyte Center Count </content>0.19 [facility] H<content styleCode="Ital ics"> (0-0.1 [facility])</content > UNK 0.0 <content [facility] styleCode="Bold Liv ">Nucleated Red Medical Blood Cell Center Count </content>0.00 KCUMM<content styleCode="Ital ics"> (0.0 KCUMM)</content > Hematocrit 36.0-46. <content [facility] [Volume 0 styleCode="Bold Liv Fraction] of ">Hematocrit Medical Blood by </content>38.8 Center Automated count %<content styleCode="Ital ics"> (36.0-46.0 %)</content> Hemoglobin 12.3-16. Below low normal <content [facility] [Mass/volume] in 0 styleCode="Bold Liv Blood ">Hemoglobin Medical </content>11.9 Center G/DL L<content styleCode="Ital ics"> (12.3-16.0 G/DL)</content> Erythrocytes 4.0-5.1 Above high <content [facility] [#/volume] in normal styleCode="Bold Liv Blood by ">Red Blood Medical Automated count Cell Count Center </content>5.53 MCUMM H<content styleCode="Ital ics"> (4.0-5.1 MCUMM)</content > Leukocytes 4.4-11.0 <content [facility] [#/volume] in styleCode="Bold Liv Blood by ">White Blood Medical Automated count Cell Count Center </content>7.50 KCUMM<content styleCode="Ital ics"> (4.4-11.0 KCUMM)</content > Platelets 130-400 <content [facility] [#/volume] in styleCode="Bold Liv Blood by ">Platelet Medical Automated count Count Center </content>234 KCUMM<content styleCode="Ital ics"> (130-400 KCUMM)</content > Erythrocyte 11.5-14. <content [facility] distribution 5 styleCode="Bold Liv width [Ratio] by ">Red Cell Medical Automated count Distribution Center Width </content>14.5 %<content styleCode="Ital ics"> (11.5-14.5 %)</content> Erythrocyte mean 32.0-37. Below low normal <content [facility] corpuscular 0 styleCode="Bold Liv hemoglobin ">Mean Corpus. Medical concentration Hgb Center [Mass/volume] by Concentration Automated count (MCHC) </content>30.7 G/DL L<content styleCode="Ital ics"> (32.0-37.0 G/DL)</content> Erythrocyte mean 26.0-34. Below low normal <content [facility] corpuscular 0 styleCode="Bold Liv hemoglobin ">Mean Medical [Entitic mass] Corposcular Center by Automated Hemoglobin count </content>21.5 PG L<content styleCode="Ital ics"> (26.0-34.0 PG)</content> Erythrocyte mean 80.0-100 <content [facility] corpuscular .0 styleCode="Bold Liv volume [Entitic ">Mean Medical volume] by Corpuscular Center Automated count Volume </content>70.2 FL<content styleCode="Ital ics"> (80.0-100.0 FL)</content> UNK 0.0 <content [facility] styleCode="Bold Liv ">Nucleated Red Medical Blood Cell Center Count </content>0.00 KCUMM<content styleCode="Ital ics"> (0.0 KCUMM)</content > UNK 0 <content [facility] styleCode="Bold Liv ">Nucleated Red Medical Blood Cell Center </content>0.0 /100<content styleCode="Ital ics"> (0 /100)</content> Platelet mean 8.0-11.0 Above high <content [facility] volume [Entitic normal styleCode="Bold Liv volume] in Blood ">Mean Platelet Medical by Automated Volume Center count </content>12.3 FL H<content styleCode="Ital ics"> (8.0-11.0 FL)</content> Hemoglobin 12.3-16. <content [facility] [Mass/volume] in 0 styleCode="Bold Liv Blood ">Hemoglobin Medical </content>12.3 Center G/DL<content styleCode="Ital ics"> (12.3-16.0 G/DL)</content> Erythrocytes 4.0-5.1 Above high <content [facility] [#/volume] in normal styleCode="Bold Liv Blood by ">Red Blood Medical Automated count Cell Count Center </content>5.77 MCUMM H<content styleCode="Ital ics"> (4.0-5.1 MCUMM)</content > Leukocytes 4.4-11.0 <content [facility] [#/volume] in styleCode="Bold Liv Blood by ">White Blood Medical Automated count Cell Count Center </content>10.42 KCUMM<content styleCode="Ital ics"> (4.4-11.0 KCUMM)</content > Erythrocyte mean 32.0-37. Below low normal <content [facility] corpuscular 0 styleCode="Bold Liv hemoglobin ">Mean Corpus. Medical concentration Hgb Center [Mass/volume] by Concentration Automated count (MCHC) </content>30.2 G/DL L<content styleCode="Ital ics"> (32.0-37.0 G/DL)</content> Erythrocyte mean 26.0-34. Below low normal <content [facility] corpuscular 0 styleCode="Bold Liv hemoglobin ">Mean Medical [Entitic mass] Corposcular Center by Automated Hemoglobin count </content>21.3 PG L<content styleCode="Ital ics"> (26.0-34.0 PG)</content> Erythrocyte mean 80.0-100 <content [facility] corpuscular .0 styleCode="Bold Liv volume [Entitic ">Mean Medical volume] by Corpuscular Center Automated count Volume </content>70.5 FL<content styleCode="Ital ics"> (80.0-100.0 FL)</content> Hematocrit 36.0-46. <content [facility] [Volume 0 styleCode="Patricia Peck Fraction] of ">Hematocrit Medical Blood by </content>40.7 Center Automated count %<content styleCode="Ital ics"> (36.0-46.0 %)</content> UNK 0.0 <content [facility] styleCode="Bold Liv ">Nucleated Red Medical Blood Cell Center Count </content>0.00 KCUMM<content styleCode="Ital ics"> (0.0 KCUMM)</content > UNK 0 <content [facility] styleCode="Bold Liv ">Nucleated Red Medical Blood Cell Center </content>0.0 /100<content styleCode="Ital ics"> (0 /100)</content> Platelets 130-400 <content [facility] [#/volume] in styleCode="Patricia Peck Blood by ">Platelet Medical Automated count Count Center </content>203 KCUMM<content styleCode="Ital ics"> (130-400 KCUMM)</content > Erythrocyte 11.5-14. Above high <content [facility] distribution 5 normal styleCode="Patricia Peck width [Ratio] by ">Red Cell Medical Automated count Distribution Center Width </content>15.5 % H<content styleCode="Ital ics"> (11.5-14.5 %)</content> ID Date Data Source GFR(Creatinine) 12/02/2018 05:10:00 PM EDT [facility] Name Value Range Interpretation Code Description Data Huong rce(s) Supporting Document(s ) UNK > 60 <content [facility] styleCode="Bold"> Medical Cent er EGFR </content>126 GFR<content styleCode="Italic s"> (> 60 GFR)</content> UNK > 60 <content [facility] styleCode="Bold"> Medical Cent er EGFR </content>150 GFR<content styleCode="Italic s"> (> 60 GFR)</content> UNK > 60 <content [facility] styleCode="Bold"> Medical Cent er EGFR </content>150 GFR<content styleCode="Italic s"> (> 60 GFR)</content> UNK > 60 <content [facility] styleCode="Bold"> Medical Cent er EGFR </content>150 GFR<content styleCode="Italic s"> (> 60 GFR)</content> UNK > 60 <content [facility] styleCode="Bold"> Medical Cent er EGFR </content>126 GFR<content styleCode="Italic s"> (> 60 GFR)</content> UNK > 60 <content [facility] styleCode="Bold"> Medical Cent er EGFR </content>126 GFR<content styleCode="Italic s"> (> 60 GFR)</content> UNK > 60 <content [facility] styleCode="Bold"> Medical Cent er EGFR </content>150 GFR<content styleCode="Italic s"> (> 60 GFR)</content> UNK > 60 <content [facility] styleCode="Bold"> Medical Cent er EGFR </content>126 GFR<content styleCode="Italic s"> (> 60 GFR)</content> UNK > 60 <content [facility] styleCode="Bold"> Medical Cent er EGFR </content>88 GFR<content styleCode="Italic s"> (> 60 GFR)</content> ID Date Data Source Coagulation Rout 12/02/2018 05:10:00 PM EDT [facility] Name Value Range Interpretation Description Data Sup porting Code Source(s) Document(s ) UNK < 500 Above upper panic <content [facility] limits styleCode="Bold" Liv >D-Dimer Medical </content><ryanne Center nt styleCode="Bold" >642 ngFEU HH</content><con tent styleCode="Itali cs"> (< 500 ngFEU)</content> INR in 0.80-1.2 <content [facility] Platelet poor 0 styleCode="Bold" Liv plasma by >INR Medical Coagulation </content>0.97 Center assay #<content styleCode="Itali cs"> (0.80-1.20 #)</content> UNK 9.0-13.0 <content [facility] styleCode="Bold" Liv >Protime Medical </content>10.9 Center SEC<content styleCode="Itali cs"> (9.0-13.0 SEC)</content> aPTT in 25.1-36. <content [facility] Platelet poor 5 styleCode="Bold" Liv plasma by >Partial Medical Coagulation Thromboplastin Center assay Time </content>29.1 SEC<content styleCode="Itali cs"> (25.1-36.5 SEC)</content> UNK 9.0-13.0 <content [facility] styleCode="Bold" Liv >Protime Medical </content>11.2 Center SEC<content styleCode="Itali cs"> (9.0-13.0 SEC)</content> aPTT in 25.1-36. <content [facility] Platelet poor 5 styleCode="Bold" Liv plasma by >Partial Medical Coagulation Thromboplastin Center assay Time </content>29.4 SEC<content styleCode="Itali cs"> (25.1-36.5 SEC)</content> INR in 0.80-1.2 <content [facility] Platelet poor 0 styleCode="Bold" Liv plasma by >INR Medical Coagulation </content>0.99 Center assay #<content styleCode="Itali cs"> (0.80-1.20 #)</content> UNK 9.0-13.0 <content [facility] styleCode="Bold" Liv >Protime Medical </content>10.9 Center SEC<content styleCode="Itali cs"> (9.0-13.0 SEC)</content> aPTT in 25.1-36. <content [facility] Platelet poor 5 styleCode="Bold" Liv plasma by >Partial Medical Coagulation Thromboplastin Center assay Time </content>27.3 SEC<content styleCode="Itali cs"> (25.1-36.5 SEC)</content> INR in 0.80-1.2 <content [facility] Platelet poor 0 styleCode="Bold" Liv plasma by >INR Medical Coagulation </content>0.97 Center assay #<content styleCode="Itali cs"> (0.80-1.20 #)</content> INR in 0.80-1.2 <content [facility] Platelet poor 0 styleCode="Bold" Liv plasma by >INR Medical Coagulation </content>0.94 Center assay #<content styleCode="Itali cs"> (0.80-1.20 #)</content> UNK 9.0-13.0 <content [facility] styleCode="Bold" Liv >Protime Medical </content>10.6 Center SEC<content styleCode="Itali cs"> (9.0-13.0 SEC)</content> UNK < 500 Above upper panic <content [facility] limits styleCode="Bold" Liv >D-Dimer Medical </content><ryanne Center nt styleCode="Bold" >799 ngFEU HH</content><con tent styleCode="Itali cs"> (< 500 ngFEU)</content> aPTT in 25.1-36. <content [facility] Platelet poor 5 styleCode="Bold" Liv plasma by >Partial Medical Coagulation Thromboplastin Center assay Time </content>28.2 SEC<content styleCode="Itali cs"> (25.1-36.5 SEC)</content> aPTT in 25.1-36. <content [facility] Platelet poor 5 styleCode="Bold" Liv plasma by >Partial Medical Coagulation Thromboplastin Center assay Time </content>30.6 SEC<content styleCode="Itali cs"> (25.1-36.5 SEC)</content> INR in 0.80-1.2 <content [facility] Platelet poor 0 styleCode="Bold" Liv plasma by >INR Medical Coagulation </content>1.02 Center assay #<content styleCode="Itali cs"> (0.80-1.20 #)</content> UNK 9.0-13.0 <content [facility] styleCode="Bold" Liv >Protime Medical </content>11.5 Center SEC<content styleCode="Itali cs"> (9.0-13.0 SEC)</content> aPTT in 25.1-36. <content [facility] Platelet poor 5 styleCode="Bold" Liv plasma by >Partial Medical Coagulation Thromboplastin Center assay Time </content>32.0 SEC<content styleCode="Itali cs"> (25.1-36.5 SEC)</content> INR in 0.80-1.2 <content [facility] Platelet poor 0 styleCode="Bold" Liv plasma by >INR Medical Coagulation </content>1.01 Center assay #<content styleCode="Itali cs"> (0.80-1.20 #)</content> UNK 9.0-13.0 <content [facility] styleCode="Bold" Liv >Protime Medical </content>11.4 Center SEC<content styleCode="Itali cs"> (9.0-13.0 SEC)</content> ID Date Data Source CHMROUTINECCDA 12/02/2018 05:10:00 PM EDT [facility] Name Value Range Interpretation Description Data Sup porting Code Source(s) Document(s ) Phosphate 2.5-4.5 <content [facility] [Mass/volume] styleCode="Kayli Liv in Serum or d">Phosphorus Medical Plasma </content>4.3 Center MG/DL<content styleCode="Velia lics"> (2.5-4.5 MG/DL)</conten t> Magnesium 1.6-2.3 <content [facility] [Mass/volume] styleCode="Kayli Liv in Serum or d">Magnesium Medical Plasma </content>1.8 Center MG/DL<content styleCode="Velia lics"> (1.6-2.3 MG/DL)</conten t> Magnesium 1.6-2.3 <content [facility] [Mass/volume] styleCode="Kayli Liv in Serum or d">Magnesium Medical Plasma </content>1.8 Center MG/DL<content styleCode="Velia lics"> (1.6-2.3 MG/DL)</conten t> Lipase 23-300 <content [facility] [Enzymatic styleCode="Kayli Liv activity/volume d">Lipase Medical ] in Serum or </content>84 Center Plasma IU/L<content styleCode="Velia lics"> (23-300 IU/L)</content > UNK 30-110 <content [facility] styleCode="Kayli Liv d">Amylase Medical </content>56 Center IU/L<content styleCode="Velia lics"> (30-110 IU/L)</content > UNK 2.3-3.5 <content [facility] styleCode="Kayli Liv d">Globulin Medical </content>2.5 Center G/DL<content styleCode="Velia lics"> (2.3-3.5 G/DL)</content > UNK >= 1.0 <content [facility] styleCode="Kayli Liv d">AG Ratio Medical </content>1.2 Center NM<content styleCode="Velia lics"> (>= 1.0 NM)</content> Protein 6.3-8.2 Below low normal <content [facility] [Mass/volume] styleCode="Kayli Liv in Serum or d">Total Medical Plasma Protein Center </content>5.6 G/DL L<content styleCode="Velia lics"> (6.3-8.2 G/DL)</content > Phosphate 2.5-4.5 <content [facility] [Mass/volume] styleCode="Kayli Liv in Serum or d">Phosphorus Medical Plasma </content>3.7 Center MG/DL<content styleCode="Velia lics"> (2.5-4.5 MG/DL)</conten t> Magnesium 1.6-2.3 <content [facility] [Mass/volume] styleCode="Kayli Liv in Serum or d">Magnesium Medical Plasma </content>1.7 Center MG/DL<content styleCode="Velia lics"> (1.6-2.3 MG/DL)</conten t> UNK 2.3-3.5 <content [facility] styleCode="Kayli Liv d">Globulin Medical </content>2.5 Center G/DL<content styleCode="Velia lics"> (2.3-3.5 G/DL)</content > UNK >= 1.0 <content [facility] styleCode="Kayli Liv d">AG Ratio Medical </content>1.5 Center NM<content styleCode="Velia lics"> (>= 1.0 NM)</content> Protein 6.3-8.2 <content [facility] [Mass/volume] styleCode="Kayli Allreds in Serum or d">Total Medical Plasma Protein Center </content>6.3 G/DL<content styleCode="Velia lics"> (6.3-8.2 G/DL)</content > Phosphate 2.5-4.5 <content [facility] [Mass/volume] styleCode="Kayli Liv in Serum or d">Phosphorus Medical Plasma </content>2.9 Center MG/DL<content styleCode="Velia lics"> (2.5-4.5 MG/DL)</conten t> Magnesium 1.6-2.3 <content [facility] [Mass/volume] styleCode="Kayli Allreds in Serum or d">Magnesium Medical Plasma </content>1.8 Center MG/DL<content styleCode="Velia lics"> (1.6-2.3 MG/DL)</conten t> Natriuretic < 125 <content [facility] peptide.B styleCode="Kayli Allreds prohormone d">NT Pro BNP Medical N-Terminal </content>22.2 Center [Mass/volume] PG/ML<content in Serum or styleCode="Velia Plasma lics"> (< 125 PG/ML)</conten t> Cannabinoids <content [facility] [Presence] in styleCode="Kayli Peck Urine by Screen d">Cannabinoid Medical method >50 s Center ng/mL </content>NEGA TIVE NG/ML (Reference Range: not available)<br/ > Natriuretic < 125 <content [facility] peptide.B styleCode="Kayli Allreds prohormone d">NT Pro BNP Medical N-Terminal </content>< Center [Mass/volume] 11.1 in Serum or PG/ML<content Plasma styleCode="Velia lics"> (< 125 PG/ML)</conten t> ID Date Data Source [employer]iac[employer] 12/02/2018 05:10:00 PM EDT [facility] Name Value Range Interpretation Description Data Sup porting Code Source(s) Document(s ) Creatine 30-135 <content [facility] kinase styleCode="Bold Liv [Enzymatic ">CK Medical activity/vol </content>97 Center ume] in IU/L<content Serum or styleCode="Ital Plasma ics"> (30-135 IU/L)</content> Creatine 30-135 Above high normal <content [facility] kinase styleCode="Bold Liv [Enzymatic ">CK Medical activity/vol </content>176 Center ume] in IU/L H<content Serum or styleCode="Ital Plasma ics"> (30-135 IU/L)</content> Troponin 0-0.034 <content [facility] I.cardiac styleCode="Bold Liv [Mass/volume ">Troponin I Medical ] in Serum </content>< Center or Plasma 0.012 NG/ML<content styleCode="Ital ics"> (0-0.034 NG/ML)</content > Troponin < 0.034 <content [facility] I.cardiac styleCode="Bold Liv [Mass/volume ">Troponin I Medical ] in Serum </content>< Center or Plasma 0.012 NG/ML<content styleCode="Ital ics"> (< 0.034 NG/ML)</content > ID Date Data Source BMP 12/02/2018 05:10:00 PM EDT [facility] Name Value Range Interpretation Description Data Sup porting Code Source(s) Document(s ) Sodium 137-145 <content [facility] [Moles/volume] in styleCode="Bold"> [facility] Serum or Plasma Sodium Medical </content>138 Center MEQ/L<content styleCode="Italic s"> (137-145 MEQ/L)</content> Chloride 98-107 <content [facility] [Moles/volume] in styleCode="Bold"> [facility] Edu[facility] Serum or Plasma Chloride Medical </content>107 Center MEQ/L<content styleCode="Italic s"> (98-107 MEQ/L)</content> UNK 7-17 <content [facility] styleCode="Bold"> Liv BUN </content>16 Medical MG/DL<content Center styleCode="Italic s"> (7-17 MG/DL)</content> Carbon dioxide, 22-30 Below low <content [facility] total normal styleCode="Bold"> Liv [Moles/volume] in Carbon Dioxide Medical Serum or Plasma </content>21 Center MEQ/L L<content styleCode="Italic s"> (22-30 MEQ/L)</content> Potassium 3.5-5.3 <content [facility] [Moles/volume] in styleCode="Bold"> Jose Eduardo phs Serum or Plasma Potassium Medical </content>4.5 Center MEQ/L<content styleCode="Italic s"> (3.5-5.3 MEQ/L)</content> Glucose 74-106 Above high <content [facility] [Mass/volume] in normal styleCode="Bold"> [facility]ito [facility] Serum or Plasma Glucose Medical </content>147 Center MG/DL H<content styleCode="Italic s"> (74-106 MG/DL)</content> Creatinine 0.5-1.3 <content [facility] [Mass/volume] in styleCode="Bold"> [facility]ito [facility] Serum or Plasma Creatinine Medical </content>0.7 Center MG/DL<content styleCode="Italic s"> (0.5-1.3 MG/DL)</content> UNK > 60 <content [facility] styleCode="Bold"> Liv EGFR Medical </content>126 Center GFR<content styleCode="Italic s"> (> 60 GFR)</content> Calcium 8.4-10. <content [facility] [Mass/volume] in 2 styleCode="Bold"> Nito hs Serum or Plasma Calcium Medical </content>9.5 Center MG/DL<content styleCode="Italic s"> (8.4-10.2 MG/DL)</content> Chloride 98-107 <content [facility] [Moles/volume] in styleCode="Bold"> Jose Eduardo [facility] Serum or Plasma Chloride Medical </content>107 Center MEQ/L<content styleCode="Italic s"> (98-107 MEQ/L)</content> Potassium 3.5-5.3 <content [facility] [Moles/volume] in styleCode="Bold"> Jose Eduardo phs Serum or Plasma Potassium Medical </content>4.8 Center MEQ/L<content styleCode="Italic s"> (3.5-5.3 MEQ/L)</content> Sodium 137-145 <content [facility] [Moles/volume] in styleCode="Bold"> Jose Eduardo phs Serum or Plasma Sodium Medical </content>138 Center MEQ/L<content styleCode="Italic s"> (137-145 MEQ/L)</content> Creatinine 0.5-1.3 <content [facility] [Mass/volume] in styleCode="Bold"> Nito hs Serum or Plasma Creatinine Medical </content>0.6 Center MG/DL<content styleCode="Italic s"> (0.5-1.3 MG/DL)</content> UNK 7-17 <content [facility] styleCode="Bold"> Liv BUN </content>9 Medical MG/DL<content Center styleCode="Italic s"> (7-17 MG/DL)</content> Carbon dioxide, 22-30 Below low <content [facility] total normal styleCode="Bold"> Liv [Moles/volume] in Carbon Dioxide Medical Serum or Plasma </content>20 Center MEQ/L L<content styleCode="Italic s"> (22-30 MEQ/L)</content> UNK > 60 <content [facility] styleCode="Bold"> Liv EGFR Medical </content>150 Center GFR<content styleCode="Italic s"> (> 60 GFR)</content> Calcium 8.4-10. <content [facility] [Mass/volume] in 2 styleCode="Bold"> Nito hs Serum or Plasma Calcium Medical </content>9.7 Center MG/DL<content styleCode="Italic s"> (8.4-10.2 MG/DL)</content> Glucose 74-106 Above high <content [facility] [Mass/volume] in normal styleCode="Bold"> Nito hs Serum or Plasma Glucose Medical </content>214 Center MG/DL H<content styleCode="Italic s"> (74-106 MG/DL)</content> Sodium 137-145 <content [facility] [Moles/volume] in styleCode="Bold"> Jose Eduardo phs Serum or Plasma Sodium Medical </content>138 Center MEQ/L<content styleCode="Italic s"> (137-145 MEQ/L)</content> UNK 7-17 <content [facility] styleCode="Bold"> Liv BUN </content>10 Medical MG/DL<content Center styleCode="Italic s"> (7-17 MG/DL)</content> Carbon dioxide, 22-30 <content [facility] total styleCode="Bold"> Liv [Moles/volume] in Carbon Dioxide Medical Serum or Plasma </content>24 Center MEQ/L<content styleCode="Italic s"> (22-30 MEQ/L)</content> Chloride 98-107 Above high <content [facility] [Moles/volume] in normal styleCode="Bold"> Jose Eduardo phs Serum or Plasma Chloride Medical </content>109 Center MEQ/L H<content styleCode="Italic s"> (98-107 MEQ/L)</content> Potassium <content [facility] [Moles/volume] in styleCode="Bold"> Jose Eduardo phs Serum or Plasma Potassium Medical </content>Test Center not performed. MEQ/L (Reference Range: not available)
UNK > 60 <content [facility] styleCode="Bold"> Liv EGFR Medical </content>150 Center GFR<content styleCode="Italic s"> (> 60 GFR)</content> Calcium 8.4-10. <content [facility] [Mass/volume] in 2 styleCode="Bold"> Nito hs Serum or Plasma Calcium Medical </content>9.2 Center MG/DL<content styleCode="Italic s"> (8.4-10.2 MG/DL)</content> Glucose 74-106 Above high <content [facility] [Mass/volume] in normal styleCode="Bold"> Nito hs Serum or Plasma Glucose Medical </content>116 Center MG/DL H<content styleCode="Italic s"> (74-106 MG/DL)</content> Creatinine 0.5-1.3 <content [facility] [Mass/volume] in styleCode="Bold"> Nito hs Serum or Plasma Creatinine Medical </content>0.6 Center MG/DL<content styleCode="Italic s"> (0.5-1.3 MG/DL)</content> Sodium 137-145 <content [facility] [Moles/volume] in styleCode="Bold"> [facility] Eduardo [facility] Serum or Plasma Sodium Medical </content>139 Center MEQ/L<content styleCode="Italic s"> (137-145 MEQ/L)</content> Chloride 98-107 Above high <content [facility] [Moles/volume] in normal styleCode="Bold"> Jose Eduardo [facility] Serum or Plasma Chloride Medical </content>111 Center MEQ/L H<content styleCode="Italic s"> (98-107 MEQ/L)</content> Potassium 3.5-5.3 <content [facility] [Moles/volume] in styleCode="Bold"> Jose Eduardo [facility] Serum or Plasma Potassium Medical </content>4.0 Center MEQ/L<content styleCode="Italic s"> (3.5-5.3 MEQ/L)</content> Creatinine 0.5-1.3 <content [facility] [Mass/volume] in styleCode="Bold"> Nito hs Serum or Plasma Creatinine Medical </content>0.6 Center MG/DL<content styleCode="Italic s"> (0.5-1.3 MG/DL)</content> UNK 7-17 Below low <content [facility] normal styleCode="Bold"> Liv BUN </content>6 Medical MG/DL L<content Center styleCode="Italic s"> (7-17 MG/DL)</content> Carbon dioxide, 22-30 <content [facility] total styleCode="Bold"> Liv [Moles/volume] in Carbon Dioxide Medical Serum or Plasma </content>22 Center MEQ/L<content styleCode="Italic s"> (22-30 MEQ/L)</content> UNK > 60 <content [facility] styleCode="Bold"> Liv EGFR Medical </content>150 Center GFR<content styleCode="Italic s"> (> 60 GFR)</content> Calcium 8.4-10. <content [facility] [Mass/volume] in 2 styleCode="Bold"> Nito hs Serum or Plasma Calcium Medical </content>8.4 Center MG/DL<content styleCode="Italic s"> (8.4-10.2 MG/DL)</content> Glucose 74-106 Above high <content [facility] [Mass/volume] in normal styleCode="Bold"> Nito hs Serum or Plasma Glucose Medical </content>158 Center MG/DL H<content styleCode="Italic s"> (74-106 MG/DL)</content> Alkaline 38-126 <content [facility] phosphatase styleCode="Bold"> Liv [Enzymatic Alkaline Medical activity/volume] Phosphatase (ALP) Cente r in Serum or Plasma </content>93 IU/L<content styleCode="Italic s"> (38-126 IU/L)</content> Alanine 7-30 <content [facility] aminotransferase styleCode="Bold"> Nito hs [Enzymatic Alanine Medical activity/volume] Aminotransferase Center in Serum or Plasma (ALT) </content>22 IU/L<content styleCode="Italic s"> (7-30 IU/L)</content> Aspartate 14-36 <content [facility] aminotransferase styleCode="Bold"> Nito hs [Enzymatic Aspartate Medical activity/volume] Aminotransferase Center in Serum or Plasma (AST) </content>20 IU/L<content styleCode="Italic s"> (14-36 IU/L)</content> Albumin 3.5-5.0 Below low <content [facility] [Mass/volume] in normal styleCode="Bold"> Nito hs Serum or Plasma Albumin Medical </content>3.1 Center G/DL L<content styleCode="Italic s"> (3.5-5.0 G/DL)</content> Bilirubin.total 0.2-1.3 <content [facility] [Mass/volume] in styleCode="Bold"> Nito hs Serum or Plasma Bilirubin Total Medical </content>0.2 Center MG/DL<content styleCode="Italic s"> (0.2-1.3 MG/DL)</content> Sodium 137-145 <content [facility] [Moles/volume] in styleCode="Bold"> Jose Eduardo phs Serum or Plasma Sodium Medical </content>138 Center MEQ/L<content styleCode="Italic s"> (137-145 MEQ/L)</content> UNK 7-17 Below low <content [facility] normal styleCode="Bold"> Liv BUN </content>6 Medical MG/DL L<content Center styleCode="Italic s"> (7-17 MG/DL)</content> Carbon dioxide, 22-30 <content [facility] total styleCode="Bold"> Liv [Moles/volume] in Carbon Dioxide Medical Serum or Plasma </content>24 Center MEQ/L<content styleCode="Italic s"> (22-30 MEQ/L)</content> Chloride 98-107 <content [facility] [Moles/volume] in styleCode="Bold"> Jose Eduardo phs Serum or Plasma Chloride Medical </content>106 Center MEQ/L<content styleCode="Italic s"> (98-107 MEQ/L)</content> Potassium 3.5-5.3 <content [facility] [Moles/volume] in styleCode="Bold"> Jose Eduardo [facility] Serum or Plasma Potassium Medical </content>4.1 Center MEQ/L<content styleCode="Italic s"> (3.5-5.3 MEQ/L)</content> UNK > 60 <content [facility] styleCode="Bold"> Liv EGFR Medical </content>126 Center GFR<content styleCode="Italic s"> (> 60 GFR)</content> Calcium 8.4-10. <content [facility] [Mass/volume] in 2 styleCode="Bold"> Nito hs Serum or Plasma Calcium Medical </content>8.9 Center MG/DL<content styleCode="Italic s"> (8.4-10.2 MG/DL)</content> Glucose 74-106 Above high <content [facility] [Mass/volume] in normal styleCode="Bold"> Nito hs Serum or Plasma Glucose Medical </content>245 Center MG/DL H<content styleCode="Italic s"> (74-106 MG/DL)</content> Creatinine 0.5-1.3 <content [facility] [Mass/volume] in styleCode="Bold"> Ntio hs Serum or Plasma Creatinine Medical </content>0.7 Center MG/DL<content styleCode="Italic s"> (0.5-1.3 MG/DL)</content> Albumin 3.5-5.0 <content [facility] [Mass/volume] in styleCode="Bold"> Nito hs Serum or Plasma Albumin Medical </content>3.8 Center G/DL<content styleCode="Italic s"> (3.5-5.0 G/DL)</content> Bilirubin.total 0.2-1.3 <content [facility] [Mass/volume] in styleCode="Bold"> Nito hs Serum or Plasma Bilirubin Total Medical </content>0.5 Center MG/DL<content styleCode="Italic s"> (0.2-1.3 MG/DL)</content> Alkaline 38-126 <content [facility] phosphatase styleCode="Bold"> Liv [Enzymatic Alkaline Medical activity/volume] Phosphatase (ALP) Cente r in Serum or Plasma </content>109 IU/L<content styleCode="Italic s"> (38-126 IU/L)</content> Alanine 7-30 Above high <content [facility] aminotransferase normal styleCode="Bold"> Nito hs [Enzymatic Alanine Medical activity/volume] Aminotransferase Center in Serum or Plasma (ALT) </content>31 IU/L H<content styleCode="Italic s"> (7-30 IU/L)</content> Aspartate 14-36 <content [facility] aminotransferase styleCode="Bold"> Nito hs [Enzymatic Aspartate Medical activity/volume] Aminotransferase Center in Serum or Plasma (AST) </content>22 IU/L<content styleCode="Italic s"> (14-36 IU/L)</content> Chloride 98-107 <content [facility] [Moles/volume] in styleCode="Bold"> Jose Eduardo [facility] Serum or Plasma Chloride Medical </content>106 Center MEQ/L<content styleCode="Italic s"> (98-107 MEQ/L)</content> Potassium 3.5-5.3 <content [facility] [Moles/volume] in styleCode="Bold"> Jose Eduardo phs Serum or Plasma Potassium Medical </content>4.6 Center MEQ/L<content styleCode="Italic s"> (3.5-5.3 MEQ/L)</content> Sodium 137-145 Below low <content [facility] [Moles/volume] in normal styleCode="Bold"> Jose Eduardo phs Serum or Plasma Sodium Medical </content>136 Center MEQ/L L<content styleCode="Italic s"> (137-145 MEQ/L)</content> Calcium 8.4-10. <content [facility] [Mass/volume] in 2 styleCode="Bold"> Nito hs Serum or Plasma Calcium Medical </content>10.0 Center MG/DL<content styleCode="Italic s"> (8.4-10.2 MG/DL)</content> Glucose 74-106 Above high <content [facility] [Mass/volume] in normal styleCode="Bold"> Nito hs Serum or Plasma Glucose Medical </content>352 Center MG/DL H<content styleCode="Italic s"> (74-106 MG/DL)</content> Creatinine 0.5-1.3 <content [facility] [Mass/volume] in styleCode="Bold"> Nito hs Serum or Plasma Creatinine Medical </content>0.7 Center MG/DL<content styleCode="Italic s"> (0.5-1.3 MG/DL)</content> UNK 7-17 <content [facility] styleCode="Bold"> Liv BUN </content>10 Medical MG/DL<content Center styleCode="Italic s"> (7-17 MG/DL)</content> Carbon dioxide, 22-30 Below low <content [facility] total normal styleCode="Bold"> Liv [Moles/volume] in Carbon Dioxide Medical Serum or Plasma </content>17 Center MEQ/L L<content styleCode="Italic s"> (22-30 MEQ/L)</content> UNK > 60 <content [facility] styleCode="Bold"> Liv EGFR Medical </content>126 Center GFR<content styleCode="Italic s"> (> 60 GFR)</content> Carbon dioxide, 22-30 Below low <content [facility] total normal styleCode="Bold"> Liv [Moles/volume] in Carbon Dioxide Medical Serum or Plasma </content>21 Center MEQ/L L<content styleCode="Italic s"> (22-30 MEQ/L)</content> Chloride 98-107 Above high <content [facility] [Moles/volume] in normal styleCode="Bold"> Jose Eduardo phs Serum or Plasma Chloride Medical </content>110 Center MEQ/L H<content styleCode="Italic s"> (98-107 MEQ/L)</content> Potassium 3.5-5.3 <content [facility] [Moles/volume] in styleCode="Bold"> Jose Eduardo phs Serum or Plasma Potassium Medical </content>4.0 Center MEQ/L<content styleCode="Italic s"> (3.5-5.3 MEQ/L)</content> Sodium 137-145 <content [facility] [Moles/volume] in styleCode="Bold"> Jose Eduardo phs Serum or Plasma Sodium Medical </content>140 Center MEQ/L<content styleCode="Italic s"> (137-145 MEQ/L)</content> Calcium 8.4-10. <content [facility] [Mass/volume] in 2 styleCode="Bold"> Nito hs Serum or Plasma Calcium Medical </content>9.3 Center MG/DL<content styleCode="Italic s"> (8.4-10.2 MG/DL)</content> Glucose 74-106 Above high <content [facility] [Mass/volume] in normal styleCode="Bold"> Nito hs Serum or Plasma Glucose Medical </content>184 Center MG/DL H<content styleCode="Italic s"> (74-106 MG/DL)</content> Creatinine 0.5-1.3 <content [facility] [Mass/volume] in styleCode="Bold"> Nito hs Serum or Plasma Creatinine Medical </content>0.6 Center MG/DL<content styleCode="Italic s"> (0.5-1.3 MG/DL)</content> UNK 7-17 <content [facility] styleCode="Bold"> Liv BUN </content>8 Medical MG/DL<content Center styleCode="Italic s"> (7-17 MG/DL)</content> UNK > 60 <content [facility] styleCode="Bold"> Liv EGFR Medical </content>150 Center GFR<content styleCode="Italic s"> (> 60 GFR)</content> Chloride 98-107 Above high <content [facility] [Moles/volume] in normal styleCode="Bold"> Jose Eduardo phs Serum or Plasma Chloride Medical </content>109 Center MEQ/L H<content styleCode="Italic s"> (98-107 MEQ/L)</content> Potassium 3.5-5.3 <content [facility] [Moles/volume] in styleCode="Bold"> Jose Eduardo phs Serum or Plasma Potassium Medical </content>4.0 Center MEQ/L<content styleCode="Italic s"> (3.5-5.3 MEQ/L)</content> Sodium 137-145 <content [facility] [Moles/volume] in styleCode="Bold"> Jose Eduardo phs Serum or Plasma Sodium Medical </content>142 Center MEQ/L<content styleCode="Italic s"> (137-145 MEQ/L)</content> Calcium 8.4-10. <content [facility] [Mass/volume] in 2 styleCode="Bold"> Nito hs Serum or Plasma Calcium Medical </content>9.1 Center MG/DL<content styleCode="Italic s"> (8.4-10.2 MG/DL)</content> Glucose 74-106 Above high <content [facility] [Mass/volume] in normal styleCode="Bold"> Nito hs Serum or Plasma Glucose Medical </content>126 Center MG/DL H<content styleCode="Italic s"> (74-106 MG/DL)</content> Creatinine 0.5-1.3 <content [facility] [Mass/volume] in styleCode="Bold"> Nito hs Serum or Plasma Creatinine Medical </content>0.7 Center MG/DL<content styleCode="Italic s"> (0.5-1.3 MG/DL)</content> UNK 7-17 Below low <content [facility] normal styleCode="Bold"> Liv BUN </content>6 Medical MG/DL L<content Center styleCode="Italic s"> (7-17 MG/DL)</content> Carbon dioxide, 22-30 <content [facility] total styleCode="Bold"> Liv [Moles/volume] in Carbon Dioxide Medical Serum or Plasma </content>23 Center MEQ/L<content styleCode="Italic s"> (22-30 MEQ/L)</content> Bilirubin.total 0.2-1.3 <content [facility] [Mass/volume] in styleCode="Bold"> Nito hs Serum or Plasma Bilirubin Total Medical </content>0.3 Center MG/DL<content styleCode="Italic s"> (0.2-1.3 MG/DL)</content> Alkaline 38-126 <content [facility] phosphatase styleCode="Bold"> Liv [Enzymatic Alkaline Medical activity/volume] Phosphatase (ALP) Cente r in Serum or Plasma </content>90 IU/L<content styleCode="Italic s"> (38-126 IU/L)</content> Alanine 7-30 Above high <content [facility] aminotransferase normal styleCode="Bold"> Nito hs [Enzymatic Alanine Medical activity/volume] Aminotransferase Center in Serum or Plasma (ALT) </content>46 IU/L H<content styleCode="Italic s"> (7-30 IU/L)</content> Aspartate 14-36 Above high <content [facility] aminotransferase normal styleCode="Bold"> Nito hs [Enzymatic Aspartate Medical activity/volume] Aminotransferase Center in Serum or Plasma (AST) </content>44 IU/L H<content styleCode="Italic s"> (14-36 IU/L)</content> UNK > 60 <content [facility] styleCode="Bold"> Liv EGFR Medical </content>126 Center GFR<content styleCode="Italic s"> (> 60 GFR)</content> Albumin 3.5-5.0 <content [facility] [Mass/volume] in styleCode="Bold"> Nito hs Serum or Plasma Albumin Medical </content>3.9 Center G/DL<content styleCode="Italic s"> (3.5-5.0 G/DL)</content> Chloride 98-107 <content [facility] [Moles/volume] in styleCode="Bold"> Jose Eduardo [facility] Serum or Plasma Chloride Medical </content>105 Center MEQ/L<content styleCode="Italic s"> (98-107 MEQ/L)</content> Potassium 3.5-5.3 <content [facility] [Moles/volume] in styleCode="Bold"> Jose Eduardo phs Serum or Plasma Potassium Medical </content>4.4 Center MEQ/L<content styleCode="Italic s"> (3.5-5.3 MEQ/L)</content> Sodium 137-145 <content [facility] [Moles/volume] in styleCode="Bold"> Jose Eduardo [facility] Serum or Plasma Sodium Medical </content>139 Center MEQ/L<content styleCode="Italic s"> (137-145 MEQ/L)</content> Calcium 8.4-10. <content [facility] [Mass/volume] in 2 styleCode="Bold"> Nito hs Serum or Plasma Calcium Medical </content>9.8 Center MG/DL<content styleCode="Italic s"> (8.4-10.2 MG/DL)</content> Glucose 74-106 Above high <content [facility] [Mass/volume] in normal styleCode="Bold"> Nito hs Serum or Plasma Glucose Medical </content>146 Center MG/DL H<content styleCode="Italic s"> (74-106 MG/DL)</content> Creatinine 0.5-1.3 <content [facility] [Mass/volume] in styleCode="Bold"> Nito hs Serum or Plasma Creatinine Medical </content>0.8 Center MG/DL<content styleCode="Italic s"> (0.5-1.3 MG/DL)</content> UNK 7-17 <content [facility] styleCode="Bold"> Liv BUN </content>10 Medical MG/DL<content Center styleCode="Italic s"> (7-17 MG/DL)</content> Carbon dioxide, 22-30 <content [facility] total styleCode="Bold"> Liv [Moles/volume] in Carbon Dioxide Medical Serum or Plasma </content>25 Center MEQ/L<content styleCode="Italic s"> (22-30 MEQ/L)</content> UNK > 60 <content [facility] styleCode="Bold"> Liv EGFR </content>88 Medical GFR<content Center styleCode="Italic s"> (> 60 GFR)</content> ID Date Data Source Liver Profile 09/30/2018 04:50:00 PM EST [facility] Name Value Range Interpretation Description Data Sup porting Code Source(s) Document(s ) Aspartate 14-36 <content [facility] aminotransferase styleCode="Bold"> Nito hs [Enzymatic Aspartate Medical activity/volume] Aminotransferase Center in Serum or Plasma (AST) </content>20 IU/L<content styleCode="Italic s"> (14-36 IU/L)</content> Alanine 7-30 <content [facility] aminotransferase styleCode="Bold"> Nito hs [Enzymatic Alanine Medical activity/volume] Aminotransferase Center in Serum or Plasma (ALT) </content>22 IU/L<content styleCode="Italic s"> (7-30 IU/L)</content> Bilirubin.total 0.2-1.3 <content [facility] [Mass/volume] in styleCode="Bold"> Nito hs Serum or Plasma Bilirubin Total Medical </content>0.2 Center MG/DL<content styleCode="Italic s"> (0.2-1.3 MG/DL)</content> Alkaline 38-126 <content [facility] phosphatase styleCode="Bold"> Liv [Enzymatic Alkaline Medical activity/volume] Phosphatase (ALP) Cente r in Serum or Plasma </content>93 IU/L<content styleCode="Italic s"> (38-126 IU/L)</content> Albumin 3.5-5.0 Below low <content [facility] [Mass/volume] in normal styleCode="Bold"> Nito hs Serum or Plasma Albumin Medical </content>3.1 Center G/DL L<content styleCode="Italic s"> (3.5-5.0 G/DL)</content> Aspartate 14-36 <content [facility] aminotransferase styleCode="Bold"> Nito hs [Enzymatic Aspartate Medical activity/volume] Aminotransferase Center in Serum or Plasma (AST) </content>22 IU/L<content styleCode="Italic s"> (14-36 IU/L)</content> Bilirubin.total 0.2-1.3 <content [facility] [Mass/volume] in styleCode="Bold"> Nito hs Serum or Plasma Bilirubin Total Medical </content>0.5 Center MG/DL<content styleCode="Italic s"> (0.2-1.3 MG/DL)</content> Alkaline 38-126 <content [facility] phosphatase styleCode="Bold"> Liv [Enzymatic Alkaline Medical activity/volume] Phosphatase (ALP) Cente r in Serum or Plasma </content>109 IU/L<content styleCode="Italic s"> (38-126 IU/L)</content> Alanine 7-30 Above high <content [facility] aminotransferase normal styleCode="Bold"> Nito hs [Enzymatic Alanine Medical activity/volume] Aminotransferase Center in Serum or Plasma (ALT) </content>31 IU/L H<content styleCode="Italic s"> (7-30 IU/L)</content> Albumin 3.5-5.0 <content [facility] [Mass/volume] in styleCode="Bold"> Nito hs Serum or Plasma Albumin Medical </content>3.8 Center G/DL<content styleCode="Italic s"> (3.5-5.0 G/DL)</content> Aspartate 14-36 Above high <content [facility] aminotransferase normal styleCode="Bold"> Nito hs [Enzymatic Aspartate Medical activity/volume] Aminotransferase Center in Serum or Plasma (AST) </content>44 IU/L H<content styleCode="Italic s"> (14-36 IU/L)</content> Albumin 3.5-5.0 <content [facility] [Mass/volume] in styleCode="Bold"> Nito hs Serum or Plasma Albumin Medical </content>3.9 Center G/DL<content styleCode="Italic s"> (3.5-5.0 G/DL)</content> UNK 0.0-0.3 <content [facility] styleCode="Bold"> Liv Bilirubin, Direct Medical </content>< 0.2 Center MG/DL<content styleCode="Italic s"> (0.0-0.3 MG/DL)</content> Bilirubin.total 0.2-1.3 <content [facility] [Mass/volume] in styleCode="Bold"> Nito hs Serum or Plasma Bilirubin Total Medical </content>0.3 Center MG/DL<content styleCode="Italic s"> (0.2-1.3 MG/DL)</content> Alkaline 38-126 <content [facility] phosphatase styleCode="Bold"> Liv [Enzymatic Alkaline Medical activity/volume] Phosphatase (ALP) Cente r in Serum or Plasma </content>90 IU/L<content styleCode="Italic s"> (38-126 IU/L)</content> Alanine 7-30 Above high <content [facility] aminotransferase normal styleCode="Bold"> Nito hs [Enzymatic Alanine Medical activity/volume] Aminotransferase Center in Serum or Plasma (ALT) </content>46 IU/L H<content styleCode="Italic s"> (7-30 IU/L)</content> ID Date Data Source BloodBank 09/30/2018 04:50:00 PM EST [facility] Name Value Range Interpretation Code Description Data Huong rce(s) Supporting Document(s ) UNK <content [facility] styleCode="Bold" Medical Cente r >Blood Type </content>GROUP A (Reference Range: not available)
UNK NEGATIVE <content [facility] styleCode="Bold" Medical Cente r >Antibody Screen </content>NEGATI VE <content styleCode="Itali cs"> (NEGATIVE )</content> UNK <content [facility] styleCode="Bold" Medical Cente r >RH Type </content>POSITI VE (Reference Range: not available)
ID Date Data Source Hormones 07/07/2018 05:36:00 AM [facility] Name Value Range Interpretation Code Description Data Huong rce(s) Supporting Document(s ) UNK <content [facility] styleCode="Bold"> Medical Cent er Prolactin </content>3.2 ng/mL (Reference Range: not available)
ID Date Data Source Microbiology 06/22/2018 05:31:00 PM EST [facility] Name Value Range Interpretation Code Description Data Huong rce(s) Supporting Document(s ) UNK <item><content [facility] styleCode="Bold"> Medical [facility] er Culture Status </content>
<t able><tbody><tr>< td>Specimen Number:</td><td>[id number]</td></tr ><tr><td>Sample Collection Date/Time: </td><td>06/22/20 18 5:31 PM</td></tr><tr>< td>Specimen Source:</td><td>U RINE</td></tr><tr ><td>Culture Status:</td><td>P reliminary </td></tr><tr><td >Culture Report:</td><td>C ulture in progress </td></tr><tr><td >Urine Culture:</td><td> Collection Plate Date: 06/22/2018 17:45 </td></tr></tbody ></table></item> UNK <item><content [facility] styleCode="Bold"> Medical [facility] er Culture Report </content>
<t able><tbody><tr>< td>Specimen Number:</td><td>[id number]</td></tr ><tr><td>Sample Collection Date/Time: </td><td>06/22/20 18 5:31 PM</td></tr><tr>< td>Specimen Source:</td><td>U RINE</td></tr><tr ><td>Urine Culture:</td><td> Collection Plate Date: 06/22/2018 17:45 </td></tr><tr><td >Culture Status:</td><td>P reliminary </td></tr><tr><td >Culture Report:</td><td>C ulture in progress </td></tr></tbody ></table></item> Procedure Social History Code Duration Value Status Description Data Source(s ) Smoking 04/09/2020 Denies Ever completed Denies Ever [facility] 04:13:00 PM Sm[facility] Smoked [facility] Cent[facility] EDT Smoking 04/09/2020 Denies Ever completed [facility] Ever [facility] 04:13:00 PM Smoked Smoked Medical Cent[facility] EDT Smoking 04/09/2020 Denies Ever completed [facility] Ever [facility] 04:01:00 PM Smoked Smoked Medical Cente r EDT Caffeine Use 03/08/2020 completed NEXTGEN ([facility] Details 12:00:[address] [facility] EDT [place]) Smoking 03/08/2020 Unknown if completed Unknown if ever NEXTGEN ( [facility] 12:00:00 AM ever smoked smoked [facility] EDT [place]) Smoking 03/07/2020 Denies Ever completed [facility] Ever [facility] 07:22:00 PM Smoked Smoked Medical Cent[facility] r EDT Smoking 03/07/2020 Denies Ever completed [facility] Ever [facility] 06:30:00 PM Smoked Smoked Medical Cente r EDT Smoking 03/07/2020 Denies Ever completed [facility] Ever [facility] 06:27:00 PM Smoked Smoked Medical Cent[facility] r EDT Smoking 02/10/2020 Denies Ever completed [facility] Ever [facility] 08:15:00 PM Smoked Smoked Medical Cent[facility] r EDT Smoking 02/10/2020 Denies Ever completed [facility] 01:59:00 AM Smoked Smoked Medical Cent[facility] EDT Smoking 02/09/2020 Denies Ever completed [facility] Ever [facility] 11:04:00 PM Smoked Smoked Medical Cent[facility] EDT Smoking 02/09/2020 Denies Ever completed [facility] Ever [facility] 08:43:00 PM Smoked Smoked Medical Cent[facility] r EDT Smoking 02/09/2020 Denies Ever completed [facility] Ever [facility] 08:35:00 PM Smoked Smoked Medical Cent[facility] r EDT Smoking 02/09/2020 Denies Ever completed [facility] Ever [facility] 08:28:00 PM Smoked Smoked Medical Cent[facility] r EDT Smoking 02/07/2020 Denies Ever completed [facility] 09:00:00 AM Smoked Smoked Medical Cent[facility] r EDT Smoking 02/07/2020 Denies Ever completed [facility] 02:20:00 AM Smoked Smoked Medical Cent[facility] r EDT Smoking 02/07/2020 Denies Ever completed [facility] Ever [facility] 02:07:00 AM Smoked Smoked Medical Cent[facility] EDT Smoking 09/07/2019 Denies Ever completed [facility] 12:56:00 PM Smoked Smoked Medical Cente r EST Smoking 09/07/2019 Denies Ever completed [facility] Ever [facility] 12:05:00 PM Smoked Smoked Medical Cent[facility] r EST Smoking 09/07/2019 Denies Ever completed [facility] 12:02:00 PM Smoked Smoked Medical Cente r EST Smoking 08/16/2019 Denies Ever completed [facility] Ever [facility] 09:31:00 AM Smoked Smoked Medical Cente r EST Smoking 08/16/2019 Denies Ever completed [facility] Ever [facility] 09:11:00 AM Smoked Smoked Medical Cente r EST Smoking 08/16/2019 Denies Ever completed [facility] 08:46:00 AM Smoked Smoked Medical Cente r EST Smoking 07/16/2019 Denies Ever completed [facility] 09:25:00 PM Smoked Smoked Medical Cente r EST Smoking 07/16/2019 Denies Ever completed [facility] Ever [facility] 11:17:00 AM Smoked Smoked Medical Cente r EST Smoking 07/16/2019 Denies Ever completed [facility] Ever [facility] 10:22:00 AM Smoked Smoked Medical Cente r EST Smoking 07/16/2019 Denies Ever completed [facility] Ever [facility] 10:21:00 AM Smoked Smoked Medical Cent[facility] r EST Smoking 06/09/2019 Denies Ever completed [facility] 05:11:00 PM Smoked Smoked Medical Cente r EST Smoking 06/09/2019 Denies Ever completed [facility] Ever [facility] 04:26:00 PM Smoked Smoked Medical Cente r EST Smoking 05/18/2019 Never smoked completed Never smoked RAE ( [facility] 01:04:32 PM tobacco tobacco Juni EDT (finding) (finding) [facility]) Smoking 04/21/2019 Denies Ever completed [facility] 08:54:00 PM Smoked Smoked Medical Cente r EDT Smoking 04/21/2019 Denies Ever completed [facility] 08:50:00 PM Smoked Smoked Medical Cente r EDT Smoking 04/21/2019 Denies Ever completed [facility] 08:29:00 PM Smoked Smoked Medical Cent[facility] r EDT Smoking 04/20/2019 Denies Ever completed [facility] Ever [facility] 01:00:00 AM Smoked Smoked Medical Cent[facility] r EDT Smoking 04/19/2019 Denies Ever completed [facility] Ever [facility] 11:30:00 PM Smoked Smoked Medical Cent[facility] r EDT Smoking 04/19/2019 Denies Ever completed Denies Ever [facility] 11:27:00 PM Smoked Smoked Medical Cent[facility] r EDT Smoking 04/15/2019 Denies Ever completed [facility] Ever [facility] 08:03:00 PM Smoked Smoked Medical Cent[facility] r EDT Smoking 04/15/2019 Denies Ever completed [facility] Ever [facility] 07:05:00 PM Smoked Smoked Medical Cente r EDT Smoking 04/15/2019 Denies Ever completed [facility] Ever [facility] 07:04:00 PM Smoked Smoked Medical Cente r EDT Smoking 04/03/2019 Denies Ever completed [facility] Ever [facility] 12:50:00 PM Smoked Smoked Medical Cent[facility] r EDT Smoking 04/03/2019 Denies Ever completed [facility] Ever [facility] 11:17:00 AM Smoked Smoked Medical Cente r EDT Smoking 03/29/2019 Denies Ever completed [facility] Ever [facility] 03:35:00 PM Smoked Smoked Medical Cent[facility] r EDT Smoking 03/29/2019 Denies Ever completed [facility] Ever [facility] 03:20:00 PM Smoked Smoked Medical Cent[facility] r EDT Smoking 03/10/2019 Denies Ever completed [facility] Ever [facility] 06:32:00 PM Smoked Smoked Medical Cente r EDT Smoking 03/10/2019 Denies Ever completed [facility] Ever [facility] 06:13:00 PM Smoked Smoked Medical Cent[facility] r EDT Smoking 03/10/2019 Denies Ever completed [facility] Ever [facility] 06:13:00 PM Smoked Smoked Medical Cent[facility] r EDT Smoking 02/27/2019 Denies Ever completed [facility] Ever [facility] 08:17:00 PM Smoked Smoked Medical Cent[facility] r EDT Smoking 02/27/2019 Denies Ever completed [facility] Ever [facility] 08:00:00 PM Smoked Smoked Medical Cent[facility] r EDT Smoking 02/27/2019 Denies Ever completed [facility] Ever [facility] 08:00:00 PM Smoked Smoked Medical Cent[facility] r EDT Smoking 02/18/2019 Denies Ever completed [facility] Ever [facility] 03:41:00 PM Smoked Smoked Medical Cente r EDT Smoking 02/18/2019 Denies Ever completed [facility] Ever [facility] 01:10:00 PM Smoked Smoked Medical Cent[facility] r EDT Smoking 02/18/2019 Denies Ever completed [facility] Ever [facility] 08:18:00 AM Smoked Smoked Medical Cent[facility] r EDT Smoking 02/18/2019 Denies Ever completed [facility] Ever [facility] 08:14:00 AM Smoked Smoked Medical Cent[facility] r EDT Smoking 02/18/2019 Denies Ever completed [facility] Ever [facility] 08:09:00 AM Smoked Smoked Medical Cent[facility] r EDT Smoking 02/02/2019 Denies Ever completed [facility] Ever [facility] 07:40:00 PM Smoked Smoked Medical Cente r EDT Smoking 02/02/2019 Denies Ever completed [facility] Ever [facility] 07:30:00 PM Smoked Smoked Medical Cent[facility] r EDT Smoking 02/02/2019 Denies Ever completed [facility] Ever [facility] 07:22:00 PM Smoked Smoked Medical Cent[facility] r EDT Smoking 01/08/2019 Denies Ever completed [facility] Ever [facility] 09:11:00 PM Smoked Smoked Medical Cent[facility] r EDT Smoking 01/08/2019 Denies Ever completed [facility] Ever [facility] 09:03:00 PM Smoked Smoked Medical Cent[facility] r EDT Smoking 12/12/2018 Denies Ever completed Denies Ever [facility] 11:12:00 PM Smoked Smoked Medical Cent[facility] r EDT Smoking 12/12/2018 Denies Ever completed [facility] Ever [facility] 09:02:00 PM Smoked Smoked Medical Cent[facility] r EDT Smoking 12/12/2018 Denies Ever completed [facility] Ever [facility] 08:23:00 PM Smoked Smoked Medical Cent[facility] r EDT Smoking 12/02/2018 Denies Ever completed Den[facility] Ever [facility] 04:16:00 PM Smoked Smoked Medical Cent[facility] r EDT Smoking 12/02/2018 Denies Ever completed [facility] Ever [facility] 04:10:00 PM Smoked Smoked Medical Cent[facility] r EDT Smoking 12/02/2018 Denies Ever completed [facility] Ever [facility] 04:02:00 PM Smoked Smoked Medical Cent[facility] r EDT Smoking 11/24/2018 Denies Ever completed Den[facility] Ever [facility] 12:15:00 PM Smoked Smoked Medical Cent[facility] r EDT Smoking 11/24/2018 Denies Ever completed [facility] Ever [facility] 12:00:00 PM Smoked Smoked Medical Cent[facility] r EDT Smoking 11/24/2018 Denies Ever completed Denies Ever [facility] 11:37:00 AM Smoked Smoked Medical Cent[facility] r EDT Smoking 11/18/2018 Denies Ever completed [facility] Ever [facility] 01:25:00 PM Smoked Smoked Medical Cente r EDT Smoking 11/18/2018 Denies Ever completed [facility] 01:25:00 PM [facility] Smoking 11/18/2018 Denies Ever completed [facility] 01:18:00 PM [facility] Smoking 11/14/2018 Denies Ever completed [facility] 07[facility]08:00 PM [facility]oked [facility] EDT Smoking 11/14/2018 Denies Ever completed [facility] 05:49:00 PM [facility]oked [facility] EDT Smoking 10/22/2018 Denies Ever completed [facility] 01:55:00 PM [facility]oked [facility] EDT Smoking 10/22/2018 Denies Ever completed [facility] 01:45:00 PM [facility]oked [facility] EDT Smoking 09/30/2018 Denies Ever completed [facility] 04:50:00 PM [facility]oked [facility] EST Smoking 09/30/2018 Denies Ever completed [facility] 04:15:00 PM Sm[facility] Smoked [facility] EST Smoking 09/30/2018 Denies Ever completed [facility] 04:02:00 PM [facility]oked [facility] EST Smoking 09/14/2018 Denies Ever completed [facility] 02:40:00 PM [facility]oked [facility] EST Smoking 09/14/2018 Denies Ever completed [facility] 02:32:00 PM [facility]oked [facility] EST Smoking 08/25/2018 Denies Ever completed [facility] 08:21:00 PM [facility]oked [facility] EST Smoking 08/25/2018 Denies Ever completed [facility] 12:35:00 PM Sm[facility] Smoked [facility] EST Smoking 08/25/2018 Denies Ever completed [facility] 12:18:00 PM Sm[facility] Smoked [facility] EST Smoking 08/25/2018 Denies Ever completed [facility] 12:14:00 PM Smoked Smoked [facility] EST Smoking 08/20/2018 Denies Ever completed [facility] 10:00:00 PM Sm[facility] Smoked [facility] EST Smoking 08/20/2018 Denies Ever completed [facility] 09:32:00 PM Sm[facility] Smoked [facility] EST Smoking 08/20/2018 Denies Ever completed [facility] 06:56:00 PM Sm[facility]oked [facility] EST Smoking 07/05/2018 Denies Ever completed [facility] 05:12:00 PM Sm[facility] Smoked [facility] EST Smoking 07/05/2018 Denies Ever completed [facility] 02:06:00 AM Smoked Smoked [facility] EST Smoking 07/04/2018 Denies Ever completed [facility] 11:47:00 PM Smoked Smoked [facility] EST Smoking 07/04/2018 Denies Ever completed [facility] 11:42:00 PM Sm[facility] Smoked [facility] EST Smoking 07/04/2018 Denies Ever completed [facility] 11:29:00 PM Smoked Smoked [facility] EST Smoking 06/23/2018 [id number] completed [place] 06:42:00 PM [facility] Cent[facility] EST Smoking 06/23/2018 [id number] completed [facility] 05:20:00 PM [facility] Cent[facility] EST Smoking 06/23/2018 [id number] completed [facility] 05:18:00 PM [facility] EST Smoking 06/22/2018 [id number] completed [facility] 11:25:00 PM Medical Cent[facility] EST Smoking 06/22/2018 [id number] completed [facility] 06:51:00 PM [facility] Cent[facility] EST Alcohol Use completed [facility] ([facility]) Smoking Unknown if completed Unknown if ever [facility] ever smoked smoked Medical Cent[facility] r Assertion Finding completed Finding relating R[facility] ([facility] relating to to drug misuse Juni drug misuse behavior Neighborhood behavior (finding) Health Center) (finding) Assertion Current completed Current drinker [place] ([facility] drinker of of alcohol Juni alcohol (finding) Neighborhood (finding) Health Center) Vital Signs ID Date Data Source UNK Name Value Range Interpretation Code Description Data Source(s) Body weight 81.371274 81.468592 kg [facility] hs Measured kg Medical Center Body temperature 36.079270 36.339557 [facility] Respiratory rate 18 /min 18 /min [facility] Oxygen saturation 99 % 99 % [facility] Arterial blood [facility] by Pulse oximetry Heart rate 104 /min 104 /min [facility] Body height 149.606292 149.600226 cm [facility] Diastolic blood 77 mm[Hg] 77 mm[Hg] [facility] pressure Medical Center Systolic blood 125 mm[Hg] 125 mm[Hg] [facility] Body mass index 36.3 kg/m2 36.3 kg/m2 [facility] (BMI) [Ratio] Medical [facility] Body mass index 35.46 kg/m2 Overweight 35.46 kg/m2 [facility] ([facility] (BMI) [Ratio] [facility]) Respiratory rate 16 /min 16 /min [facility] ([facility]) Body temperature 37.00 Key[place] 37.00 Keya [facility] ([facility]) Heart rate 81 /min 81 /min [facility] ([facility]) Diastolic blood 81 mm[Hg] 81 mm[Hg] [facility] ( [facility]) Systolic blood 114 mm[Hg] 114 mm[Hg] [facility] ([facility]) Body weight 82.372 kg 82.372 kg [facility] ([facility]) Body height 152.40 cm 152.40 cm [facility] ([facility]) Body temperature 36.563246 36.652670 [facility] Respiratory rate 18 /min 18 /min [facility] Oxygen saturation 100 % 100 % [facility] osephs in [facility] by Pulse oximetry Heart rate 84 /min 84 /min [facility] Diastolic blood 85 mm[Hg] 85 mm[Hg] [facility] pressure [facility] Systolic blood 125 mm[Hg] 125 mm[Hg] [facility] Body weight 75.319018 75.063280 [facility] Measured kg [facility] Respiratory rate 18 /min 18 /min [facility] Oxygen saturation 99 % 99 % [facility] in Arterial blood [facility] Center by Pulse oximetry Heart rate 94 /min 94 /min [facility] Body height 154.399923 154.912222 [facility] Diastolic blood 90 mm[Hg] 90 mm[Hg] [facility] pressure [facility] Systolic blood 138 mm[Hg] 138 mm[Hg] [facility] Body mass index 31.2 kg/m2 31.2 kg/m2 [facility] (BMI) [Ratio] Medical [facility] Heart rate 67 /min 67 /min [facility] Diastolic blood 76 mm[Hg] 76 mm[Hg] [facility] Systolic blood 113 mm[Hg] 113 mm[Hg] [facility] Body temperature 36.416804 36.053340 [facility] Respiratory rate 20 /min 20 /min [facility] Body temperature 36.314977 36.213422 [facility] Respiratory rate 20 /min 20 /min [facility] Heart rate 68 /min 68 /min [facility] Diastolic blood 69 mm[Hg] 69 mm[Hg] [facility] Systolic blood 108 mm[Hg] 108 mm[Hg] [facility] Body temperature 37.561201 37.619256 [facility] Respiratory rate 20 /min 20 /min [facility] Heart rate 73 /min 73 /min [facility] Diastolic blood 67 mm[Hg] 67 mm[Hg] [facility] Systolic blood 104 mm[Hg] 104 mm[Hg] [facility] Body temperature 37.092288 37.879642 [facility] Respiratory rate 20 /min 20 /min [facility] Heart rate 87 /min 87 /min [facility] Diastolic blood 85 mm[Hg] 85 mm[Hg] [facility] Systolic blood 125 mm[Hg] 125 mm[Hg] [facility] Body temperature 36.755169 36.776845 [facility] Respiratory rate 20 /min 20 /min [facility] Heart rate 76 /min 76 /min [facility] Diastolic blood 77 mm[Hg] 77 mm[Hg] [facility] Systolic blood 114 mm[Hg] 114 mm[Hg] [facility] Body temperature 36.294634 36.263410 [facility] Respiratory rate 20 /min 20 /min [facility] Heart rate 89 /min 89 /min [facility] Diastolic blood 72 mm[Hg] 72 mm[Hg] [facility] Systolic blood 123 mm[Hg] 123 mm[Hg] [facility] Oxygen saturation 99 % 99 % [facility] in Arterial blood [facility] Center by Pulse oximetry Body temperature 36.124824 36.149704 [facility] Respiratory rate 20 /min 20 /min [facility] Heart rate 101 /min 101 /min [facility] Diastolic blood 90 mm[Hg] 90 mm[Hg] [facility] Systolic blood 127 mm[Hg] 127 mm[Hg] [facility] Body weight 83.380265 83.359736 kg [facility] Measured kg Medical Center Body height 149.778630 149.478706 [facility] Body mass index 36.96 kg/m2 36.96 kg/m2 [facility] (BMI) [Ratio] [facility] Body temperature 36.322748 36.924252 [facility] Respiratory rate 18 /min 18 /min [facility] Heart rate 96 /min 96 /min [facility] Diastolic blood 77 mm[Hg] 77 mm[Hg] [facility] Systolic blood 125 mm[Hg] 125 mm[Hg] [facility] Body weight 83.728241 83.128356 kg [facility] hs Measured kg Medical Center Body height 149.250533 149.563137 [facility] Body mass index 36.96 kg/m2 36.96 kg/m2 [facility] (BMI) [Ratio] [facility] Body temperature 36.445079 36.598785 [facility] Respiratory rate 17 /min 17 /min [facility] Heart rate 98 /min 98 /min [facility] Diastolic blood 71 mm[Hg] 71 mm[Hg] [facility] pressure [facility] Center Systolic blood 117 mm[Hg] 117 mm[Hg] [facility] Oxygen saturation 98 % 98 % [facility] Arterial blood [facility] by Pulse oximetry Body temperature 37.312910 37.662823 [facility] Respiratory rate 18 /min 18 /min [facility] Heart rate 115 /min 115 /min [facility] Diastolic blood 84 mm[Hg] 84 mm[Hg] [facility] Systolic blood 127 mm[Hg] 127 mm[Hg] [facility] Oxygen saturation 99 % 99 % [facility] Arterial blood [facility] by Pulse oximetry Oxygen saturation 100 % 100 % [facility] Arterial blood [facility] by Pulse oximetry Body temperature 36.326440 36.423672 [facility] Respiratory rate 18 /min 18 /min [facility] Oxygen saturation 98 % 98 % [facility] Arterial blood [facility] by Pulse oximetry Heart rate 80 /min 80 /min [facility] Diastolic blood 78 mm[Hg] 78 mm[Hg] [facility] Systolic blood 140 mm[Hg] 140 mm[Hg] [facility] Body temperature 37.212913 37.126605 [facility] Respiratory rate 18 /min 18 /min [facility] Oxygen saturation 97 % 97 % [facility] Arterial blood [facility] by Pulse oximetry Heart rate 72 /min 72 /min [facility] Diastolic blood 88 mm[Hg] 88 mm[Hg] [facility] Systolic blood 148 mm[Hg] 148 mm[Hg] [facility] Body temperature 37.556719 37.080243 [facility] Oxygen saturation 98 % 98 % [facility] blood [facility] by Pulse oximetry Heart rate 78 /min 78 /min [facility] Diastolic blood 106 mm[Hg] 106 mm[Hg] [facility] Systolic blood 157 mm[Hg] 157 mm[Hg] [facility] pressure [facility] Body weight 83.133835 83.374152 kg [facility] Measured kg [facility] Body temperature 36.808378 36.531486 [facility] Respiratory rate 18 /min 18 /min [facility] Oxygen saturation 99 % 99 % [facility] Arterial blood [facility] Center by Pulse oximetry Heart rate 91 /min 91 /min [facility] Body height 149.078461 149.314493 [facility] Diastolic blood 81 mm[Hg] 81 mm[Hg] [facility] Systolic blood 123 mm[Hg] 123 mm[Hg] [facility] Body mass index 36.9 kg/m2 36.9 kg/m2 [facility] (BMI) [Ratio] Medical [facility] ter Body weight 81.307662 81.930578 kg [facility] Measured kg [facility] Body temperature 36.338175 36.900651 [facility] Respiratory rate 20 /min 20 /min [facility] Oxygen saturation 100 % 100 % [facility] blood [facility] by Pulse oximetry Heart rate 87 /min 87 /min [facility] Body height 149.184555 149.015395 [facility] Diastolic blood 90 mm[Hg] 90 mm[Hg] [facility] Systolic blood 133 mm[Hg] 133 mm[Hg] [facility] Body mass index 36.3 kg/m2 36.3 kg/m2 [facility] (BMI) [Ratio] Medical [facility] ter Body temperature 37.090891 37.630193 [facility] Respiratory rate 18 /min 18 /min [facility] Oxygen saturation 99 % 99 % [facility] Arterial blood [facility] by Pulse oximetry Heart rate 86 /min 86 /min [facility] Diastolic blood 76 mm[Hg] 76 mm[Hg] [facility] Systolic blood 120 mm[Hg] 120 mm[Hg] [facility] Body weight 125.619578 125.880989 kg [facility] Measured kg Medical Center Body temperature 37.787746 37.712163 [facility] Respiratory rate 18 /min 18 /min [facility] Oxygen saturation 99 % 99 % [facility] Arterial blood [facility] by Pulse oximetry Heart rate 100 /min 100 /min [facility] Body height 149.000321 149.137174 [facility] Diastolic blood 74 mm[Hg] 74 mm[Hg] [facility] pressure [facility] Systolic blood 121 mm[Hg] 121 mm[Hg] [facility] Body mass index 55.6 kg/m2 55.6 kg/m2 [facility] (BMI) [Ratio] Medical [facility] ter Body temperature 36.238083 36.176929 [facility] Respiratory rate 17 /min 17 /min [facility] Oxygen saturation 99 % 99 % [facility] blood [facility] by Pulse oximetry Heart rate 85 /min 85 /min [facility] Diastolic blood 70 mm[Hg] 70 mm[Hg] [facility] Systolic blood 123 mm[Hg] 123 mm[Hg] [facility] Body temperature 36.047201 36.667798 [facility] Respiratory rate 16 /min 16 /min [facility] Oxygen saturation 99 % 99 % [facility] by Pulse oximetry Heart rate 90 /min 90 /min [facility] Diastolic blood 67 mm[Hg] 67 mm[Hg] [facility] Systolic blood 112 mm[Hg] 112 mm[Hg] [facility] PhenX - pain, 0 0 RAE ([facility]) cpe Body surface area Derived from 1.50 m2 1.50 m2 RAE ([facility]) cpe Body mass index (BMI) 57.6 kg/m2 57.6 kg/m2 [place] ([place] [Ratio] [facility]) cpe Body weight 181 [lb_av] 181 [lb_av] RAE ([facility]) cpe Body height 47 [in_us] 47 [in_us] RAE ([facility]) cpe Body temperature 98.2 [degF] 98.2 [degF] GREENW AY ([facility]) cpe Heart rate rhythm 1 1 [place] Y ([facility]) cpe Heart rate 76 /min 76 /min RAE ([facility]) cpe Diastolic blood pressure 70 mm[Hg] 70 mm[Hg] RAE ([facility]) cpe Systolic blood pressure 110 mm[Hg] 110 mm[Hg] G REENWAY ([facility]) cpe Body temperature 36.923934 [place] 36.294608 [facility] Respiratory rate 20 /min 20 /min [facility] Oxygen saturation in Arterial 97 % 97 % [facility] blood by Pulse oximetry C enter Heart rate 114 /min 114 /min [facility] Diastolic blood pressure 94 mm[Hg] 94 mm[Hg] [facility] Systolic blood pressure 155 mm[Hg] 155 mm[Hg] [facility] Body weight Measured 81.332576 kg 81.859049 kg [facility] Body temperature 36.021196 [place] 36.100781 [facility] Respiratory rate 22 /min 22 /min [facility] Oxygen saturation in Arterial 99 % 99 % [facility] blood by Pulse oximetry C enter Heart rate 113 /min 113 /min [facility] Body height 150.371917 cm 150.661039 cm [facility] Diastolic blood pressure 86 mm[Hg] 86 mm[Hg] [facility] Systolic blood pressure 129 mm[Hg] 129 mm[Hg] [facility] Body mass index (BMI) [Ratio] 36.0 kg/m2 36.0 k g/m2 [facility] Body temperature 36.505345 [place] 36.958666 [facility] Respiratory rate 16 /min 16 /min [facility] Oxygen saturation in Arterial 98 % 98 % [facility] blood by Pulse oximetry C enter Heart rate 75 /min 75 /min [facility] Diastolic blood pressure 70 mm[Hg] 70 mm[Hg] [facility] Systolic blood pressure 116 mm[Hg] 116 mm[Hg] [facility] Body temperature 36.560468 [place] 36.375253 [facility] Respiratory rate 17 /min 17 /min [facility] Oxygen saturation in Arterial 99 % 99 % [facility] blood by Pulse oximetry C enter Heart rate 101 /min 101 /min [facility] Diastolic blood pressure 71 mm[Hg] 71 mm[Hg] [facility] Systolic blood pressure 111 mm[Hg] 111 mm[Hg] [facility] Body weight Measured 65.627601 kg 65.544435 kg [facility] Body temperature 36.183897 [place] 36.044596 [facility] Respiratory rate 16 /min 16 /min [facility] Oxygen saturation in Arterial 99 % 99 % [facility] blood by Pulse oximetry C enter Heart rate 110 /min 110 /min [facility] Diastolic blood pressure 82 mm[Hg] 82 mm[Hg] [facility] Systolic blood pressure 122 mm[Hg] 122 mm[Hg] [facility] Body temperature 36.300512 [place] 36.704250 [facility] Respiratory rate 18 /min 18 /min [facility] Oxygen saturation in Arterial 100 % 100 % [facility] blood by Pulse oximetry C enter Heart rate 104 /min 104 /min [facility] Diastolic blood pressure 79 mm[Hg] 79 mm[Hg] [facility] Systolic blood pressure 132 mm[Hg] 132 mm[Hg] [facility] Body temperature 36.699474 [place] 36.018032 [facility] Respiratory rate 18 /min 18 /min [facility] Oxygen saturation in Arterial 98 % 98 % [facility] blood by Pulse oximetry C enter Heart rate 92 /min 92 /min [facility] Diastolic blood pressure 88 mm[Hg] 88 mm[Hg] [facility] Systolic blood pressure 135 mm[Hg] 135 mm[Hg] [facility] Body weight Measured 81.205593 kg 81.984566 kg [facility] Body temperature 36.294086 [place] 36.113396 [facility] Respiratory rate 18 /min 18 /min [facility] Oxygen saturation in Arterial 99 % 99 % [facility] blood by Pulse oximetry C enter Heart rate 94 /min 94 /min [facility] Body height 149.990167 cm 149.942264 cm [facility] Diastolic blood pressure 88 mm[Hg] 88 mm[Hg] [facility] Systolic blood pressure 136 mm[Hg] 136 mm[Hg] [facility] Body mass index (BMI) [Ratio] 36.1 kg/m2 36.1 k g/m2 [facility] Body weight Measured 86.190386 kg 86.862148 kg [facility] Body temperature 36.416997 [place] 36.739405 [facility] Respiratory rate 19 /min 19 /min [facility] Oxygen saturation in Arterial 98 % 98 % [facility] blood by Pulse oximetry C enter Heart rate 90 /min 90 /min [facility] Body height 150.025343 cm 150.057737 cm [facility] Diastolic blood pressure 65 mm[Hg] 65 mm[Hg] [facility] Systolic blood pressure 124 mm[Hg] 124 mm[Hg] [facility] Body mass index (BMI) [Ratio] 38.2 kg/m2 38.2 k g/m2 [facility] Body weight Measured 83.353270 kg 83.213351 kg [facility] Body temperature 36.501901 [place] 36.316752 [facility] Respiratory rate 18 /min 18 /min [facility] Oxygen saturation in Arterial 99 % 99 % [facility] blood by Pulse oximetry C enter Heart rate 88 /min 88 /min [facility] Body height 149.724911 cm 149.396781 cm [facility] Diastolic blood pressure 64 mm[Hg] 64 mm[Hg] [facility] Systolic blood pressure 132 mm[Hg] 132 mm[Hg] [facility] Body mass index (BMI) [Ratio] 37.1 kg/m2 37.1 k g/m2 [facility] Body temperature 37.747456 [place] 37.144841 [facility] Respiratory rate 18 /min 18 /min [facility] Heart rate 88 /min 88 /min [facility] Diastolic blood pressure 65 mm[Hg] 65 mm[Hg] [facility] Systolic blood pressure 95 mm[Hg] 95 mm[Hg] [facility] Body weight Measured 84.266034 kg 84.271316 kg [facility] Body temperature 36.055640 [place] 36.211808 [facility] Respiratory rate 16 /min 16 /min [facility] Oxygen saturation in Arterial 99 % 99 % [facility] by Pulse oximetry C enter Heart rate 87 /min 87 /min [facility] Diastolic blood pressure 68 mm[Hg] 68 mm[Hg] [facility] Systolic blood pressure 104 mm[Hg] 104 mm[Hg] [facility] Body temperature 36.040064 [place] 36.336339 [facility] Respiratory rate 20 /min 20 /min [facility] Heart rate 106 /min 106 /min [facility] Diastolic blood pressure 83 mm[Hg] 83 mm[Hg] [facility] Systolic blood pressure 132 mm[Hg] 132 mm[Hg] [facility] Body temperature 36.130197 [place] 36.800954 [facility] Respiratory rate 20 /min 20 /min [facility] Heart rate 100 /min 100 /min [facility] Diastolic blood pressure 57 mm[Hg] 57 mm[Hg] [facility] Systolic blood pressure 112 mm[Hg] 112 mm[Hg] [facility] Body temperature 36.599566 [place] 36.934829 [facility] Respiratory rate 20 /min 20 /min [facility] Heart rate 70 /min 70 /min [facility] Diastolic blood pressure 55 mm[Hg] 55 mm[Hg] [facility] Systolic blood pressure 112 mm[Hg] 112 mm[Hg] [facility] Body temperature 36.003276 [place] 36.103232 [facility] Respiratory rate 20 /min 20 /min [facility] Heart rate 88 /min 88 /min [facility] Diastolic blood pressure 66 mm[Hg] 66 mm[Hg] [facility] Systolic blood pressure 119 mm[Hg] 119 mm[Hg] [facility] Body weight Measured 83.501185 kg 83.171558 kg [facility] Body temperature 36.663387 Keay 36.201800 [facility] Respiratory rate 20 /min 20 /min [facility] Heart rate 85 /min 85 /min [facility] Body height 149.516432 cm 149.021376 cm [facility] Diastolic blood pressure 73 mm[Hg] 73 mm[Hg] [facility] Systolic blood pressure 117 mm[Hg] 117 mm[Hg] [facility] Body mass index (BMI) [Ratio] 37.31 kg/m2 37.31 kg/m2 [facility] Oxygen saturation in Arterial 98 % 98 % [facility] blood by Pulse oximetry C enter Body temperature 36.501324 [place] 36.900586 [facility] Respiratory rate 16 /min 16 /min [facility] Heart rate 88 /min 88 /min [facility] Diastolic blood pressure 66 mm[Hg] 66 mm[Hg] [facility] Systolic blood pressure 109 mm[Hg] 109 mm[Hg] [facility] Oxygen saturation in Arterial 97 % 97 % [facility] blood by Pulse oximetry C enter Body temperature 36.486643 [place] 36.067758 [facility] Respiratory rate 17 /min 17 /min [facility] Heart rate 96 /min 96 /min [facility] Diastolic blood pressure 79 mm[Hg] 79 mm[Hg] [facility] Systolic blood pressure 118 mm[Hg] 118 mm[Hg] [facility] Body weight Measured 85.501523 kg 85.620911 kg [facility] Oxygen saturation in Arterial 97 % 97 % [facility] blood by Pulse oximetry C enter Body temperature 36.783786 [place] 36.675802 [facility] Respiratory rate 17 /min 17 /min [facility] Oxygen saturation in Arterial 98 % 98 % [facility] blood by Pulse oximetry C enter Heart rate 79 /min 79 /min [facility] Diastolic blood pressure 83 mm[Hg] 83 mm[Hg] [facility] Systolic blood pressure 132 mm[Hg] 132 mm[Hg] [facility] Body temperature 36.063189 [place] 36.763671 [facility] Respiratory rate 19 /min 19 /min [facility] Oxygen saturation in Arterial 100 % 100 % [facility] blood by Pulse oximetry C enter Heart rate 76 /min 76 /min [facility] Diastolic blood pressure 87 mm[Hg] 87 mm[Hg] [facility] Systolic blood pressure 146 mm[Hg] 146 mm[Hg] [facility] Body temperature 36.987189 [place] 36.822715 [facility] Respiratory rate 18 /min 18 /min [facility] Oxygen saturation in Arterial 98 % 98 % [facility] blood by Pulse oximetry C enter Heart rate 89 /min 89 /min [facility] Diastolic blood pressure 91 mm[Hg] 91 mm[Hg] [facility] Systolic blood pressure 140 mm[Hg] 140 mm[Hg] [facility] Body weight Measured 75.582238 kg 75.979592 kg [facility] Body temperature 36.616134 [place] 36.957028 [facility] Respiratory rate 18 /min 18 /min [facility] Oxygen saturation in Arterial 99 % 99 % [facility] blood by Pulse oximetry C enter Heart rate 108 /min 108 /min [facility] Body height 149.160783 cm 149.839085 cm [facility] Diastolic blood pressure 84 mm[Hg] 84 mm[Hg] [facility] Systolic blood pressure 121 mm[Hg] 121 mm[Hg] [facility] Body mass index (BMI) [Ratio] 33.3 kg/m2 33.3 k g/m2 [facility] Body temperature 36.146334 [place] 36.756756 [facility] Respiratory rate 18 /min 18 /min [facility] Oxygen saturation in Arterial 99 % 99 % [facility] blood by Pulse oximetry C enter Heart rate 83 /min 83 /min [facility] Diastolic blood pressure 84 mm[Hg] 84 mm[Hg] [facility] Systolic blood pressure 134 mm[Hg] 134 mm[Hg] [facility] Body temperature 36.260225 [place] 36.121128 [facility] Respiratory rate 19 /min 19 /min [facility] Oxygen saturation in Arterial 98 % 98 % [facility] blood by Pulse oximetry C enter Heart rate 83 /min 83 /min [facility] Diastolic blood pressure 80 mm[Hg] 80 mm[Hg] [facility] Systolic blood pressure 122 mm[Hg] 122 mm[Hg] [facility] Body weight Measured 84.020989 kg 84.490274 kg [facility] Body temperature 37.693169 [place] 37.805757 [facility] Respiratory rate 18 /min 18 /min [facility] Oxygen saturation in Arterial 99 % 99 % [facility] blood by Pulse oximetry C enter Heart rate 85 /min 85 /min [facility] Diastolic blood pressure 78 mm[Hg] 78 mm[Hg] [facility] Systolic blood pressure 131 mm[Hg] 131 mm[Hg] [facility] Body temperature 36.034351 [place] 36.952137 [facility] Respiratory rate 15 /min 15 /min [facility] Oxygen saturation in Arterial 99 % 99 % [facility] blood by Pulse oximetry C enter Heart rate 98 /min 98 /min [facility] Diastolic blood pressure 65 mm[Hg] 65 mm[Hg] [facility] Systolic blood pressure 113 mm[Hg] 113 mm[Hg] [facility] Body temperature 36.067586 [place] 36.265889 [facility] Respiratory rate 12 /min 12 /min [facility] Oxygen saturation in Arterial 98 % 98 % [facility] blood by Pulse oximetry C enter Heart rate 96 /min 96 /min [facility] Diastolic blood pressure 59 mm[Hg] 59 mm[Hg] [facility] Systolic blood pressure 103 mm[Hg] 103 mm[Hg] [facility] Heart rate 95 /min 95 /min [facility] Body weight Measured 85.204324 kg 85.259269 kg [facility] Body temperature 36.803824 [place] 36.168739 [facility] Respiratory rate 19 /min 19 /min [facility] Oxygen saturation in Arterial 99 % 99 % [facility] blood by Pulse oximetry C enter Heart rate 99 /min 99 /min [facility] Body height 150.046816 cm 150.041272 cm [facility] Diastolic blood pressure 64 mm[Hg] 64 mm[Hg] [facility] Systolic blood pressure 118 mm[Hg] 118 mm[Hg] [facility] Body mass index (BMI) [Ratio] 37.7 kg/m2 37.7 k g/m2 [facility] Body temperature 36.706110 [place] 36.826530 [facility] Respiratory rate 16 /min 16 /min [facility] Oxygen saturation in Arterial 99 % 99 % [facility] blood by Pulse oximetry C enter Heart rate 69 /min 69 /min [facility] Diastolic blood pressure 72 mm[Hg] 72 mm[Hg] [facility] Systolic blood pressure 123 mm[Hg] 123 mm[Hg] [facility] Body temperature 36.371974 [place] 36.992824 [facility] Respiratory rate 18 /min 18 /min [facility] Oxygen saturation in Arterial 98 % 98 % [facility] blood by Pulse oximetry C enter Heart rate 85 /min 85 /min [facility] Diastolic blood pressure 75 mm[Hg] 75 mm[Hg] [facility] Systolic blood pressure 118 mm[Hg] 118 mm[Hg] [facility] Body weight Measured 77.480788 kg 77.365915 kg [facility] Body temperature 36.031468 [place] 36.556868 [facility] Respiratory rate 19 /min 19 /min [facility] Oxygen saturation in Arterial 98 % 98 % [facility] blood by Pulse oximetry C enter Heart rate 77 /min 77 /min [facility] Body height 149.709372 cm 149.814912 cm [facility] Diastolic blood pressure 77 mm[Hg] 77 mm[Hg] [facility] Systolic blood pressure 120 mm[Hg] 120 mm[Hg] [facility] Body mass index (BMI) [Ratio] 34.3 kg/m2 34.3 k g/m2 [facility] Oxygen saturation in Arterial 99 % 99 % [facility] blood by Pulse oximetry C enter Heart rate 83 /min 83 /min [facility] Body weight Measured 85.310459 kg 85.827144 kg [facility] Body temperature 36.887025 [place] 36.144359 [facility] Respiratory rate 18 /min 18 /min [facility] Oxygen saturation in Arterial 98 % 98 % [facility] blood by Pulse oximetry C enter Heart rate 96 /min 96 /min [facility] Body height 149.867009 cm 149.788601 cm [facility] Diastolic blood pressure 78 mm[Hg] 78 mm[Hg] [facility] Systolic blood pressure 132 mm[Hg] 132 mm[Hg] [facility] Body mass index (BMI) [Ratio] 37.8 kg/m2 37.8 k g/m2 [facility] Body temperature 36.200106 [place] 36.463305 [facility] Respiratory rate 17 /min 17 /min [facility] Oxygen saturation in Arterial 99 % 99 % [facility] blood by Pulse oximetry C enter Heart rate 118 /min 118 /min [facility] Diastolic blood pressure 74 mm[Hg] 74 mm[Hg] [facility] Systolic blood pressure 119 mm[Hg] 119 mm[Hg] [facility] Body temperature 36.566405 Key[place] 36.455057 [facility] Respiratory rate 17 /min 17 /min [facility] Oxygen saturation in Arterial 100 % 100 % [facility] blood by Pulse oximetry C enter Heart rate 80 /min 80 /min [facility] Diastolic blood pressure 87 mm[Hg] 87 mm[Hg] [facility] Systolic blood pressure 131 mm[Hg] 131 mm[Hg] [facility] Body temperature 36.934627 Key[place] 36.673925 [facility] Respiratory rate 18 /min 18 /min [facility] Oxygen saturation in Arterial 99 % 99 % [facility] blood by Pulse oximetry C enter Heart rate 88 /min 88 /min [facility] Diastolic blood pressure 75 mm[Hg] 75 mm[Hg] [facility] Systolic blood pressure 128 mm[Hg] 128 mm[Hg] [facility] Body temperature 36.586211 [place] 36.652207 [facility] Respiratory rate 18 /min 18 /min [facility] Oxygen saturation in Arterial 100 % 100 % [facility] blood by Pulse oximetry C enter Heart rate 87 /min 87 /min [facility] Diastolic blood pressure 77 mm[Hg] 77 mm[Hg] [facility] Systolic blood pressure 128 mm[Hg] 128 mm[Hg] [facility] Body temperature 36.198553 Key[place] 36.958378 [facility] Respiratory rate 18 /min 18 /min [facility] Oxygen saturation in Arterial 99 % 99 % [facility] blood by Pulse oximetry C enter Heart rate 91 /min 91 /min [facility] Diastolic blood pressure 75 mm[Hg] 75 mm[Hg] [facility] Systolic blood pressure 111 mm[Hg] 111 mm[Hg] [facility] Body temperature 36.472893 Key[place] 36.766067 [facility] Respiratory rate 18 /min 18 /min [facility] Oxygen saturation in Arterial 97 % 97 % [facility] blood by Pulse oximetry C enter Heart rate 92 /min 92 /min [facility] Diastolic blood pressure 70 mm[Hg] 70 mm[Hg] [facility] Systolic blood pressure 121 mm[Hg] 121 mm[Hg] [facility] Body weight Measured 80.514380 kg 80.368910 kg [facility] Body temperature 36.465616 [place] 36.551248 [facility] Respiratory rate 18 /min 18 /min [facility] Oxygen saturation in Arterial 98 % 98 % [facility] blood by Pulse oximetry C enter Heart rate 90 /min 90 /min [facility] Body height 152.262805 cm 152.119089 cm [facility] Diastolic blood pressure 74 mm[Hg] 74 mm[Hg] [facility] Systolic blood pressure 124 mm[Hg] 124 mm[Hg] [facility] Body mass index (BMI) [Ratio] 34.7 kg/m2 34.7 k g/m2 [facility] Body weight Measured 128.057948 kg 128.354495 k g [facility] Body height 149.769303 cm 149.003804 cm [facility] Body mass index (BMI) [Ratio] 57.00 kg/m2 57.00 kg/m2 [facility] Body temperature 36.052935 [place] 36.049379 [facility] Respiratory rate 18 /min 18 /min [facility] Heart rate 89 /min 89 /min [facility] Diastolic blood pressure 68 mm[Hg] 68 mm[Hg] [facility] Systolic blood pressure 112 mm[Hg] 112 mm[Hg] [facility] Body temperature 36.729594 [place] 36.787896 [facility] Respiratory rate 20 /min 20 /min [facility] Heart rate 98 /min 98 /min [facility] Diastolic blood pressure 70 mm[Hg] 70 mm[Hg] [facility] Systolic blood pressure 135 mm[Hg] 135 mm[Hg] [facility] Body temperature 37.094542 Key[place] 37.018326 [facility] Respiratory rate 18 /min 18 /min [facility] Heart rate 101 /min 101 /min [facility] Diastolic blood pressure 75 mm[Hg] 75 mm[Hg] [facility] Systolic blood pressure 130 mm[Hg] 130 mm[Hg] [facility] Body temperature 36.240476 [place] 36.303725 [facility] Respiratory rate 18 /min 18 /min [facility] Heart rate 83 /min 83 /min [facility] Diastolic blood pressure 59 mm[Hg] 59 mm[Hg] [facility] Systolic blood pressure 124 mm[Hg] 124 mm[Hg] [facility] Body temperature 36.257841 [place] 36.002905 [facility] Respiratory rate 20 /min 20 /min [facility] Heart rate 102 /min 102 /min [facility] Diastolic blood pressure 63 mm[Hg] 63 mm[Hg] [facility] Systolic blood pressure 120 mm[Hg] 120 mm[Hg] [facility] Body temperature 36.848989 [place] 36.681103 [facility] Respiratory rate 18 /min 18 /min [facility] Heart rate 82 /min 82 /min [facility] Diastolic blood pressure 67 mm[Hg] 67 mm[Hg] [facility] Systolic blood pressure 106 mm[Hg] 106 mm[Hg] [facility] Body temperature 36.318478 [place] 36.579499 [facility] Respiratory rate 20 /min 20 /min [facility] Heart rate 110 /min 110 /min [facility] Diastolic blood pressure 56 mm[Hg] 56 mm[Hg] [facility] Systolic blood pressure 108 mm[Hg] 108 mm[Hg] [facility] Body temperature 36.131602 Key[place] 36.576137 [facility] Respiratory rate 18 /min 18 /min [facility] Oxygen saturation in Arterial 97 % 97 % [facility] blood by Pulse oximetry C enter Heart rate 117 /min 117 /min [facility] Diastolic blood pressure 59 mm[Hg] 59 mm[Hg] [facility] Systolic blood pressure 108 mm[Hg] 108 mm[Hg] [facility] Body weight Measured 80.090861 kg 80.120826 kg [facility] Body temperature 36.176979 [place] 36.317435 [facility] Respiratory rate 20 /min 20 /min [facility] Heart rate 112 /min 112 /min [facility] Body height 149.885243 cm 149.009208 cm [facility] Diastolic blood pressure 69 mm[Hg] 69 mm[Hg] [facility] Systolic blood pressure 133 mm[Hg] 133 mm[Hg] [facility] Body mass index (BMI) [Ratio] 35.95 kg/m2 35.95 kg/m2 [facility] Body temperature 36.835229 [place] 36.799797 [facility] Respiratory rate 20 /min 20 /min [facility] Oxygen saturation in Arterial 96 % 96 % [facility] blood by Pulse oximetry C enter Heart rate 113 /min 113 /min [facility] Diastolic blood pressure 67 mm[Hg] 67 mm[Hg] [facility] Systolic blood pressure 114 mm[Hg] 114 mm[Hg] [facility] Oxygen saturation in Arterial 99 % 99 % [facility] blood by Pulse oximetry C enter Oxygen saturation in Arterial 98 % 98 % [facility] blood by Pulse oximetry C enter Body weight Measured 76.875035 kg 76.963028 kg [facility] Oxygen saturation in Arterial 98 % 98 % [facility] blood by Pulse oximetry C enter Body height 149.797514 cm 149.302547 cm [facility] Body mass index (BMI) [Ratio] 33.9 kg/m2 33.9 k g/m2 [facility] Body temperature 36.799882 [place] 36.848426 [facility] Respiratory rate 17 /min 17 /min [facility] Oxygen saturation in Arterial 98 % 98 % [facility] blood by Pulse oximetry C enter Heart rate 81 /min 81 /min [facility] Diastolic blood pressure 67 mm[Hg] 67 mm[Hg] [facility] Systolic blood pressure 122 mm[Hg] 122 mm[Hg] [facility] Body temperature 36.961479 [place] 36.069924 [facility] Respiratory rate 18 /min 18 /min [facility] Oxygen saturation in Arterial 100 % 100 % [facility] blood by Pulse oximetry C enter Heart rate 85 /min 85 /min [facility] Diastolic blood pressure 72 mm[Hg] 72 mm[Hg] [facility] Systolic blood pressure 117 mm[Hg] 117 mm[Hg] [facility] Body temperature 36.741828 [place] 36.643202 [facility] Respiratory rate 18 /min 18 /min [facility] Oxygen saturation in Arterial 96 % 96 % [facility] blood by Pulse oximetry C enter Heart rate 54 /min 54 /min [facility] Diastolic blood pressure 97 mm[Hg] 97 mm[Hg] [facility] Systolic blood pressure 129 mm[Hg] 129 mm[Hg] [facility] Body weight Measured 79.120442 kg 79.091755 kg [facility] Body temperature 37.230497 [place] 37.079931 [facility] Respiratory rate 18 /min 18 /min [facility] Oxygen saturation in Arterial 99 % 99 % [facility] blood by Pulse oximetry C enter Heart rate 115 /min 115 /min [facility] Body height 149.102224 cm 149.716270 cm [facility] Diastolic blood pressure 96 mm[Hg] 96 mm[Hg] [facility] Systolic blood pressure 146 mm[Hg] 146 mm[Hg] [facility] Body mass index (BMI) [Ratio] 35.5 kg/m2 35.5 k g/m2 [facility] Body weight Measured 81.973705 kg 81.779001 kg [facility] Body height 149.053851 cm 149.026846 cm [facility] Body mass index (BMI) [Ratio] 36.38 kg/m2 36.38 kg/m2 [facility] Body temperature 36.171075 [place] 36.602720 [facility] Respiratory rate 20 /min 20 /min [facility] Heart rate 84 /min 84 /min [facility] Systolic blood pressure 61 mm[Hg] 61 mm[Hg] [facility] Diastolic blood pressure 104 mm[Hg] 104 mm[Hg] [facility] Body temperature 36.733982 [place] 36.531207 [facility] Respiratory rate 18 /min 18 /min [facility] Heart rate 70 /min 70 /min [facility] Systolic blood pressure 69 mm[Hg] 69 mm[Hg] [facility] Diastolic blood pressure 116 mm[Hg] 116 mm[Hg] [facility] Body temperature 36.662692 [place] 36.088751 [facility] Respiratory rate 20 /min 20 /min [facility] Heart rate 79 /min 79 /min [facility] Systolic blood pressure 88 mm[Hg] 88 mm[Hg] [facility] Diastolic blood pressure 127 mm[Hg] 127 mm[Hg] [facility] Body temperature 36.100220 [place] 36.231879 [facility] Respiratory rate 20 /min 20 /min [facility] Heart rate 84 /min 84 /min [facility] Systolic blood pressure 73 mm[Hg] 73 mm[Hg] [facility] Diastolic blood pressure 117 mm[Hg] 117 mm[Hg] [facility] Body temperature 36.875910 [place] 36.007734 [facility] Respiratory rate 18 /min 18 /min [facility] Heart rate 94 /min 94 /min [facility] Systolic blood pressure 66 mm[Hg] 66 mm[Hg] [facility] Diastolic blood pressure 102 mm[Hg] 102 mm[Hg] [facility] Body temperature 37.758638 [place] 37.367048 [facility] Respiratory rate 19 /min 19 /min [facility] Heart rate 110 /min 110 /min [facility] Systolic blood pressure 73 mm[Hg] 73 mm[Hg] [facility] Diastolic blood pressure 108 mm[Hg] 108 mm[Hg] [facility] Body weight Measured 81.343381 kg 81.065130 kg [facility] Body temperature 36.498953 [place] 36.294452 [facility] Respiratory rate 19 /min 19 /min [facility] Heart rate 116 /min 116 /min [facility] Body height 149.741446 cm 149.528327 cm [facility] Systolic blood pressure 69 mm[Hg] 69 mm[Hg] [facility] Diastolic blood pressure 113 mm[Hg] 113 mm[Hg] [facility] Body weight Measured 80.356407 kg 80.172634 kg [facility] Body temperature 36.153438 [place] 36.456167 [facility] Respiratory rate 18 /min 18 /min [facility] Heart rate 109 /min 109 /min [facility] Systolic blood pressure 74 mm[Hg] 74 mm[Hg] [facility] Diastolic blood pressure 120 mm[Hg] 120 mm[Hg] [facility] Body temperature 36.568581 [place] 36.529051 [facility] Respiratory rate 19 /min 19 /min [facility] Deprecated Oxygen saturation 98 % 98 % [facility] in Capillary blood by Rene ter Oximetry Heart rate 117 /min 117 /min [facility] Systolic blood pressure 90 mm[Hg] 90 mm[Hg] [facility] Diastolic blood pressure 128 mm[Hg] 128 mm[Hg] [facility] Body temperature 37.422316 [place] 37.078712 [facility] Respiratory rate 18 /min 18 /min [facility] Deprecated Oxygen saturation 100 % 100 % [facility] in Capillary blood by Rene ter Oximetry Heart rate 102 /min 102 /min [facility] Systolic blood pressure 62 mm[Hg] 62 mm[Hg] [facility] Diastolic blood pressure 128 mm[Hg] 128 mm[Hg] [facility] Deprecated Oxygen saturation 98 % 98 % [facility] in Capillary blood by Rene ter Oximetry Deprecated Oxygen saturation 97 % 97 % [facility] in Capillary blood by Rene ter Oximetry Deprecated Oxygen saturation 100 % 100 % [facility] in Capillary blood by Rene ter Oximetry Body weight Measured 76.207840 kg 76.139592 kg [facility] Body temperature 37.333018 [place] 37.333489 [facility] Respiratory rate 22 /min 22 /min [facility] Deprecated Oxygen saturation 98 % 98 % [facility] in Capillary blood by Rene ter Oximetry Heart rate 114 /min 114 /min [facility] Body height 149.667226 cm 149.211960 cm [facility] Systolic blood pressure 82 mm[Hg] 82 mm[Hg] [facility] Diastolic blood pressure 150 mm[Hg] 150 mm[Hg] [facility] Body mass index (BMI) [Ratio] 33.9 kg/m2 33.9 k g/m2 [facility] Body temperature 36.817661 [place] 36.489207 [facility] Respiratory rate 17 /min 17 /min [facility] Deprecated Oxygen saturation 98 % 98 % [facility] in Capillary blood by Rene ter Oximetry Heart rate 86 /min 86 /min [facility] Systolic blood pressure 75 mm[Hg] 75 mm[Hg] [facility] Diastolic blood pressure 134 mm[Hg] 134 mm[Hg] [facility] Body temperature 36.053373 [place] 36.756365 [facility] Respiratory rate 20 /min 20 /min [facility] Deprecated Oxygen saturation 97 % 97 % [facility] in Capillary blood by Rene ter Oximetry Heart rate 113 /min 113 /min [facility] Systolic blood pressure 89 mm[Hg] 89 mm[Hg] [facility] Diastolic blood pressure 142 mm[Hg] 142 mm[Hg] [facility] Body temperature 36.577819 [place] 36.921043 [facility] [facility] Respiratory rate 19 /min 19 /min [facility] Deprecated Oxygen saturation 97 % 97 % [facility] in Capillary blood by Rene ter Oximetry Heart rate 99 /min 99 /min [facility] Systolic blood pressure 75 mm[Hg] 75 mm[Hg] [facility] Diastolic blood pressure 126 mm[Hg] 126 mm[Hg] [facility] Body temperature 36.530371 [place] 36.025394 [facility] Respiratory rate 20 /min 20 /min [facility] Deprecated Oxygen saturation 98 % 98 % [facility] in Capillary blood by Rene ter Oximetry Heart rate 119 /min 119 /min [facility] Systolic blood pressure 97 mm[Hg] 97 mm[Hg] [facility] Diastolic blood pressure 137 mm[Hg] 137 mm[Hg] [facility] Patient Treatment Plan of Care Planned Activity Planned Date Details Description Data Source (s) Amoxicillin 500 MG / [facility] Clavulanate 125 MG Oral Tablet [place] Levetiracetam 500 MG Oral [facility] Tablet [Keppra] [place] gabapentin 400 MG Oral Capsule [facility] apixaban 5 MG Oral Tablet [facility] [Eliquis] [place] alogliptin 12.5 MG / Metformin [facility] hydrochloride 500 MG Oral [facility] Tablet tramadol hydrochloride 50 MG [facility] Oral Tablet [place] Ibuprofen 600 MG Oral Tablet [facility] Cyclobenzaprine hydrochloride [facility] 10 MG Oral Tablet [place] albuterol sulfate 2.5 mg/3 mL [facility] (0.083 %) Solution for Cente r Nebulization fluticasone propion-salmeterol [facility] ([place] Inhub) 500 mcg-50 Ce nter mcg/Dose blister with device 120 ACTUAT Budesonide 0.16 S [facility] MG/ACTUAT / formoterol fumarate [place] 0.0045 MG/ACTUAT Metered Dose Inhaler [Symbicort] Prednisone 20 MG Oral Tablet [facility] montelukast 10 MG Oral Tablet [facility] gabapentin 300 MG Oral Capsule [facility] apixaban 5 MG Oral Tablet [facility] [Eliquis] Center Prednisone 20 MG Oral Tablet [facility] Prednisone 20 MG Oral Tablet [facility] Albuterol 0.83 MG/ML Inhalant [facility] compressorDirections: nebulizer [facility] compressor for astma nebulized Center treatments tramadol hydrochloride 50 MG [facility] Oral Tablet Center 120 ACTUAT Budesonide 0.16 [facility] MG/ACTUAT / formoterol fumarate [place] 0.0045 MG/ACTUAT Metered Dose Inhaler [Symbicort] 200 ACTUAT Ipratropium [place] [facility] 0.017 MG/ACTUAT Metered Dose Center Inhaler [Atrovent] Prednisone 10 MG Oral Tablet [facility] montelukast 10 MG Oral Tablet [facility] Ibuprofen 600 MG Oral Tablet [facility] 24 HR Divalproex Sodium 500 MG [facility] Extended Release Oral Tablet Center [Depakote] Amitriptyline Hydrochloride 25 [facility] Center Oral Tablet [place] Ibuprofen 600 MG Oral Tablet [facility] Ibuprofen 600 MG Oral Tablet [facility] Ondansetron 4 MG Oral Tablet [facility] Metformin hydrochloride 1000 MG [facility] Oral Tablet [place] Levetiracetam 500 MG Oral Sa [facility] Center Tablet [place] methylPREDNISolone 4 mg [facility] tablets,dose pack, Ordered By: SCOTT Levineirections: one row of tabs oral daily Diphenhydramine Hydrochloride [facility] 25 MG Oral Capsule [place] Ranitidine 150 MG Oral Tablet [facility] Prednisone 20 MG Oral Tablet [facility] methylPREDNISolone 4 mg [facility] tablets,dose pack, Ordered By: SCOTT Levineirections: one row of tabs oral daily Acetaminophen 325 MG Oral [facility] Tablet [place] prednisolone 3 MG/ML Oral [facility] Solution [place] amitriptyline 25 mg Tablet [facility] albuterol sulfate 2.5 mg/3 mL [facility] (0.083 %) Solution for Cente r Nebulization hydrOXYzine HCl 25 mg Tablet [facility] topiramate 25 mg Tablet [facility] Famotidine 40 MG Oral Tablet [facility] atorvastatin 20 MG Oral Tablet [facility] Levetiracetam 500 MG Oral Sa [facility] Center Tablet [place] insulin detemir 100 UNT/ML [facility] Injectable Solution [Levemir] [place] montelukast 10 MG Oral Tablet [facility] Metformin hydrochloride 500 MG [facility] Oral Tablet [place] ferrous sulfate 325 MG Delayed [facility] Release Oral Tablet Center 120 ACTUAT Budesonide 0.16 [facility] MG/ACTUAT / formoterol fumarate [place] 0.0045 MG/ACTUAT Metered Dose Inhaler [Symbicort] hydrOXYzine HCl 25 [facility] 1 tablet oral Center three times a day PRN itching Guaifenesin 20 MG/ML Oral [facility] 200 ACTUAT Albuterol 0.09 [facility]/ACTUAT Metered Dose Inhaler Center [Proventil] Metformin hydrochloride 1000 MG [facility] Oral Tablet [place] montelukast 10 MG Oral Tablet [facility] insulin detemir 100 UNT/ML [facility] Injectable Solution [Levemir] [place] Levetiracetam 500 MG Oral [facility] atorvastatin 20 MG Oral Tablet [facility] 120 ACTUAT Budesonide 0.16 S [facility]/ACTUAT / formoterol fumarate [place] 0.0045 MG/ACTUAT Metered Dose Inhaler [Symbicort] Famotidine 40 MG Oral Tablet [facility] ferrous sulfate 325 MG Delayed [facility] Release Oral Tablet Center Folic Acid 1 MG Oral Tablet [facility]
--- NOTE | 2020-04-17 20:12 | PDOC ---
History of Present Illness - General Chief Complaint: Pain Stated Complaint: ABD PAIN Time Seen by Provider: 04/17/20 20:12 History Source: Patient - History of Present Illness Initial Comments: 04/17/20 22:34 34-year-old female complaining of suprapubic pain since this morning. Denies flank pain, urinary frequency, urinary dysuria. Patient reports some vaginal discharge reports that it is usual. Denies fever/chills, nausea, vomiting, lower abdominal pain. Past medical history of asthma Past History - Medical History Allergies/Adverse Reactions: Allergies Allergy/AdvReac Type Severity Reaction Status Date / Time iodine Allergy Mild Hives Verified 04/17/20 19:23 seafood Allergy Mild Hives Uncoded 04/17/20 19:23 Home Medications: Ambulatory Orders Albuterol Sulfate [Albuterol Sulfate Hfa] 1 puff IH QID PRN 03/13/19 Apixaban [Eliquis] 5 mg PO BID 03/13/19 Budesonide/Formeterol Fumarate [SYMBICORT 160/4.5mcg -] 1 puff IH DAILY 03/13/19 Metformin HCl [Glucophage] 1,000 mg PO BID 03/13/19 levETIRAcetam [Keppra -] 500 mg PO BID 03/13/19 Cephalexin Monohydrate [Keflex -] 500 mg PO BID #20 capsule 04/17/20 Asthma: Yes COPD: No Diabetes: Yes (NIDDM) Seizures: Yes - Reproductive History Is Patient Now?: No - Psycho-Social/Smoking History Smoking History: Never smoked Have you smoked in the past 12 months: No - Substance Abuse Hx (Audit-C & DAST Scrn) How often the patient has a drink containing alcohol: Never Score: In Men: 4 or > Positive; In Women: 3 or > Positive: 0 Screen Result (Pos requires Nsg. Audit-10AR): Negative In the last yr the pt used illegal drug/Rx for NonMed reason: No Score: Yes response is considered Positive: 0 Screen Result (Positive result requires Nsg. DAST-10): Negative Review of Systems - Review of Systems Able to Perform ROS?: Yes Is the patient limited [place] Islander proficient: No Constitutional: No: Symptoms Reported, See HPI, Chills, Diaphoresis, Fever, Loss of Appetite, Malaise, Night Sweats, Weakness, Weight Stable, Unintentional Wgt. Loss, Unexplained wgt Loss, Other : Yes: Other (SUPRAPUBIC PAIN). No: Symptoms Reported, See HPI, Burning, Dysuria, Discharge, Frequency, Flank Pain, Hematuria, Incontinence, Pain, U rgency, Testicular Mass, Testicular Swelling, Lesions, Testicular Pain *Physical Exam - Vital Signs Last Vital Signs Temp Pulse Resp BP Pulse Ox 98.5 F 98 H 18 130/84 100 04/17/20 19:20 04/17/20 19:20 04/17/20 19:20 04/17/20 19:20 04/17/20 19:20 - Physical Exam General Appearance: Yes: Appropriately Dressed Respiratory/Chest: positive: Lungs Clear, Normal Breath Sounds Female Pelvic Exam: positive: normal external exam, cervical os closed, normal adnexa, normal size ovaries, other (+ SUPRApubic tenderness) Gastrointestinal/Abdominal: positive: Normal Bowel Sounds, Soft. negative: Tender Musculoskeletal: positive: Normal Inspection. 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 Discharge - Discharge Information Problems reviewed: Yes Clinical Impression/Diagnosis: Right ovarian cyst UTI (urinary tract infection) Qualifiers: Urinary tract infection type: acute cystitis Hematuria presence: without hematuria Qualified Code(s): N30.00 - Acute cystitis without hematuria Condition: Improved Disposition: HOME - Additional Discharge Information Prescriptions: Cephalexin Monohydrate [Keflex -] 500 mg PO BID #20 capsule - Follow up/Referral - Patient Discharge Instructions Patient Printed Discharge Instructions: Urinary Tract Infection Additional Instructions: Drink plenty of fluids Take ibuprofen every 6 hours as needed for pain Take keflex as prescribed Follow-up with your primary care doctor as soon as possible. You need to repeat urine test once your antibiotic is completed. We will call you if you're antibiotic needs to be changed. - Post Discharge Activity Work/Back to School Note: Back to Work
[2020-04-17] MEDS ORDERED: IBUPROFEN 600 MG TABLET (FP) PO ONE ×2 (21:49→21:55)
[2020-04-17 21:57] LABS: EPI CELLS >36 /uL (0-25.1); HYALINE CASTS 17 /uL (0-3.1); URINE APPEARANCE CLOUDY; URINE BACTERIA 1644 /uL (0-1359); URINE BILIRUBIN NEGATIVE (NEGATIVE); URINE COLOR YELLOW; URINE GLUCOSE (UA) NEGATIVE (NEGATIVE); URINE KETONE NEGATIVE (NEGATIVE); URINE LEUK ESTERASE 1+ (NEGATIVE); URINE NITRITE NEGATIVE (NEGATIVE); URINE PROTEIN NEGATIVE (NEGATIVE); URINE RBC 17 /uL (0-23.9); URINE WBC 143 /uL (0-25.8)
[2020-04-17 21:58] LABS: HCG,QUALITATIVE URINE Negative
[2020-04-17] MEDS ORDERED: CEPHALEXIN MONOHYDRATE 500 MG CAPSULE (UD) PO ONE (22:52)
[2020-04-17] MEDS ORDERED: CEPHALEXIN MONOHYDRATE 500 MG CAPSULE (UD) ONE (22:58)
== END 2020-04-17 23:06 | disposition home or self-care (01) ==
LOC: JER 19:18
DX: N30.00 Acute cystitis without hematuria (principal); N83.291 Other ovarian cyst, right side
CPT/HCPCS: 76830-TC; 81003; 84703; 99284-25

== ENCOUNTER 2020-06-14 21:34 | Emergency (ER) | payer OTHER ==
[2020-06-14 22:09] VITALS: BMI 32.9
[2020-06-14] MEDS ORDERED: SODIUM CHLORIDE 1,000 ML IV STA (23:47)
[2020-06-15] MEDS ORDERED: MECLIZINE HCL 25 MG TABLET (FP) PO ONE (00:05)
[2020-06-15 00:29] LABS: BASO % 0.3 % (0-2.0); EOS % 1.1 % (0-4.5); HEMATOCRIT 36.8 % (32.4-45.2); HEMOGLOBIN 11.4 GM/dL (10.7-15.3); LYMPH % 30.7 % (8-40); MCH 21.1 pg (25.7-33.7); MEAN PLT VOLUME 9.8 fl (7.5-11.1); MONO % 7.5 % (3.8-10.2); NEUT % 60.4 % (42.8-82.8); PLATELET COUNT 193 K/MM3 (134-434); RBC 5.41 M/mm3 (3.60-5.2); RDW 15.5 % (11.6-15.6)
[2020-06-15] MEDS ORDERED: MECLIZINE HCL 25 MG TABLET (FP) ONE (00:35)
[2020-06-15 00:48] LABS: POTASSIUM 4.2 mmol/L (3.5-5.1)
[2020-06-15 00:50] LABS: ALBUMIN 3.4 g/dl (3.4-5.0); CALCIUM 9.7 mg/dL (8.5-10.1)
[2020-06-15 00:51] LABS: BLOOD UREA NITROGEN 9.5 mg/dL (7-18)
[2020-06-15 00:54] LABS: CREATININE 0.7 mg/dL (0.55-1.3)
[2020-06-15 00:55] LABS: BILIRUBIN,TOTAL 0.2 mg/dL (0.2-1); TOT PROT 6.6 g/dl (6.4-8.2)
[2020-06-15 01:48] LABS: URINE APPEARANCE CLOUDY; URINE BILIRUBIN NEGATIVE (NEGATIVE); URINE COLOR YELLOW; URINE GLUCOSE (UA) NEGATIVE (NEGATIVE); URINE KETONE TRACE (NEGATIVE); URINE LEUK ESTERASE NEGATIVE (NEGATIVE); URINE NITRITE NEGATIVE (NEGATIVE); URINE PROTEIN NEGATIVE (NEGATIVE)
[2020-06-15 02:23] VITALS: BP 97/58; PULSE 83; TEMP 97.5
== END 2020-06-15 02:21 | disposition home or self-care (01) ==
LOC: JER 21:34
PROC: 3E0337Z Introduction of Electrolytic and Water Balance Substance into Peripheral Vein, Percutaneous Approach (ICD-10-PCS; principal; 2020-06-14)
DX: R42 Dizziness and giddiness (principal)
CPT/HCPCS: 36415; 80053; 81003; 83735; 85025; 87077; 87086; 99284-25

== ENCOUNTER 2020-10-12 09:05 | Emergency (ER) | payer OTHER ==
[2020-10-12 09:16] VITALS: BMI 37.0
[2020-10-12] MEDS ORDERED: ACETAMINOPHEN 500 MG TABLET (FP) PO ONE (09:36)
[2020-10-12] MEDS ORDERED: ACETAMINOPHEN 325 MG TABLET (FP) ONE (09:41)
[2020-10-12] MEDS ORDERED: BAMLANIVIMAB 700 MG in SODIUM CHLORIDE 250 ML IVPB ONE (10:02)
[2020-10-12 12:15] VITALS: TEMP 100.1
[2020-10-12 14:35] VITALS: BP 112/60; PULSE 97
== END 2020-10-12 14:15 | disposition home or self-care (01) ==
LOC: JER 09:05
DX: U07.1 COVID-19 (principal); R50.9 Fever, unspecified
CPT/HCPCS: 99284-25; M0239; Q0239

== ENCOUNTER 2020-11-25 09:46 | Inpatient (IN) | payer OTHER ==
[2020-11-25] MEDS ORDERED: levETIRAcetam 500 MG/5 ML INJECTION VIAL IVPB ONE ×2 (10:11→10:40)
[2020-11-25] MEDS ORDERED: LORazepam 2 MG/ML SDV VIAL ONE ×3 (10:35→10:52)
[2020-11-25 10:48] LABS: BASO % 0.7 % (0-2.0); EOS % 1.7 % (0-4.5); HEMATOCRIT 43.4 % (32.4-45.2); HEMOGLOBIN 14.1 GM/dL (10.7-15.3); LYMPH % 49.6 % (8-40); MCH 21.9 pg (25.7-33.7); MCHC 32.4 g/dl (32.0-36.0); MEAN CELL VOLUME 67.7 fl (80-96); MEAN PLT VOLUME 10.3 fl (7.5-11.1); MONO % 7.8 % (3.8-10.2); NEUT % 40.2 % (42.8-82.8); PLATELET COUNT 195 K/MM3 (134-434); RBC 6.42 M/mm3 (3.60-5.2); RDW 14.4 % (11.6-15.6); WHITE BLOOD COUNT 6.7 K/mm3 (4.0-10.0)
[2020-11-25 10:55] LABS: INR 1.02 (0.83-1.09); PROTHROMBIN TIME (PATIENT) 12.5 SEC (9.7-13.0)
[2020-11-25] MEDS ORDERED: LORazepam 2 MG/ML SDV VIAL IVPUSH ONE ×2 (10:56→10:57)
[2020-11-25] MEDS ORDERED: LORazepam 2 MG/ML SDV VIAL IVPUSH PRN (10:57)
[2020-11-25 10:58] LABS: ACTIVATED PTT 27.8 SECONDS (25.2-36.5)
[2020-11-25] MEDS ORDERED: methylPREDNISolone NA SUCC 125 MG/2 ML VIAL IVPUSH ONE (11:06)
[2020-11-25] MEDS ORDERED: methylPREDNISolone NA SUCC 125 MG/2 ML VIAL ONE (11:08)
[2020-11-25 11:09] LABS: ALBUMIN 4.3 g/dl (3.4-5.0); MAGNESIUM 1.8 mg/dL (1.8-2.4)
[2020-11-25 11:13] LABS: TOT PROT 7.6 g/dl (6.4-8.2)
[2020-11-25 11:14] LABS: BILIRUBIN,TOTAL 0.6 mg/dL (0.2-1)
[2020-11-25 11:33] LABS: CALCIUM 9.5 mg/dL (8.5-10.1)
[2020-11-25] MEDS ORDERED: NALOXONE HCL 0.4 MG/ML VIAL ONE (12:25)
[2020-11-25 12:51] LABS: ANISOCYTOSIS 1+; MACROCYTOSIS 0; PLATELET ESTIMATE NORMAL
[2020-11-25] MEDS ORDERED: LACTATED RINGERS SOLUTION 1000 ML INFUS.BAG IV ONE ×2 (13:59→15:50)
[2020-11-25] MEDS ORDERED: levETIRAcetam 500 MG TABLET (FP) PO ONE ×2 (17:35→17:36)
[2020-11-25] MEDS ORDERED: SODIUM CHLORIDE 1,000 ML IV SCH (19:00)
[2020-11-25] MEDS ORDERED: GABAPENTIN 100 MG CAPSULE ONE (21:40)
[2020-11-25] MEDS ORDERED: APIXABAN 5 MG TABLET ONE (21:40)
[2020-11-25] MEDS: APIXABAN 5 MG TABLET PO SCH (21:49)
[2020-11-25] MEDS: GABAPENTIN 300 MG CAPSULE PO SCH (21:49)
[2020-11-26] MEDS ORDERED: LORazepam 2 MG/ML SDV VIAL IVPUSH SCH (02:00)
[2020-11-26 03:37] VITALS: BMI 34.4
[2020-11-26] MEDS: LORazepam 2 MG/ML SDV VIAL IVPUSH PRN ×3 (06:54→16:45)
[2020-11-26] MEDS: INSULIN SLIDING SCALE (NOVOLOG) 1 VIAL SQ SCH ×4 (06:57→22:03)
[2020-11-26] MEDS ORDERED: PNEUMOC 13-VAL CONJ-DIP CRM/PF 0.5 ML DISP.SYRIN IM ONE (07:45)
[2020-11-26] MEDS ORDERED: FLU VACCINE (FLULAVAL) PF 60 MCG/0.5 ML SYRINGE 2020-2021 IM ONE (08:30)
[2020-11-26] MEDS ORDERED: PNEUMOCOCCAL 23 VACCINE 0.5 ML VIAL IM ONE (08:30)
[2020-11-26] MEDS ORDERED: INSULIN (NOVOLOG) ASPART 100 UNITS/ML 10ML VIAL ONE ×2 (10:45→21:59)
[2020-11-26] MEDS: APIXABAN 5 MG TABLET PO SCH ×2 (10:48→22:02)
[2020-11-26] MEDS: GABAPENTIN 300 MG CAPSULE PO SCH ×2 (10:48→22:02)
[2020-11-26] MEDS: LACTATED RINGERS SOLUTION 1,000 ML/1,000 ML INFUS.BAG IV SCH (15:01)
[2020-11-26 15:51] LABS: URINE BARBITURATES NEGATIVE ng/ml (CUTOFF=200)
[2020-11-26 15:52] LABS: COCAINE, UR NEGATIVE ng/ml (CUTOFF=300); METHADONE, UR NEGATIVE ng/ml (CUTOFF=300); OPIATES, URI NEGATIVE ng/ml (CUTOFF=300); URINE AMPHETAMINES NEGATIVE ng/ml (CUTOFF=500); URINE BENZODIAZEPINES NEGATIVE ng/ml (CUTOFF=200)
[2020-11-26 15:53] LABS: PHENCYCLIDINE,URINE NEGATIVE ng/ml (CUTOFF=25)
[2020-11-26] MEDS: INSULIN (LEVEMIR) 100 UNITS/ML UNITS SQ SCH (22:02)
[2020-11-27] MEDS: LACTATED RINGERS SOLUTION 1,000 ML/1,000 ML INFUS.BAG IV SCH ×2 (04:18→17:23)
[2020-11-27] MEDS: INSULIN SLIDING SCALE (NOVOLOG) 1 VIAL SQ SCH ×4 (06:28→21:11)
[2020-11-27] MEDS ORDERED: INSULIN (NOVOLOG) ASPART 100 UNITS/ML 10ML VIAL ONE (06:40)
[2020-11-27 09:10] LABS: BASO % 0.3 % (0-2.0); EOS % 0.4 % (0-4.5); HEMATOCRIT 36.1 % (32.4-45.2); HEMOGLOBIN 11.6 GM/dL (10.7-15.3); LYMPH % 46.7 % (8-40); MCH 22.1 pg (25.7-33.7); MCHC 32.1 g/dl (32.0-36.0); MEAN CELL VOLUME 68.7 fl (80-96); MEAN PLT VOLUME 10.1 fl (7.5-11.1); MONO % 6.5 % (3.8-10.2); NEUT % 46.1 % (42.8-82.8); PLATELET COUNT 132 K/MM3 (134-434); RBC 5.26 M/mm3 (3.60-5.2); RDW 14.8 % (11.6-15.6); WHITE BLOOD COUNT 5.9 K/mm3 (4.0-10.0)
[2020-11-27] MEDS: LORazepam 2 MG/ML SDV VIAL IVPUSH PRN ×2 (09:15→14:53)
[2020-11-27 09:33] LABS: CALCIUM 8.5 mg/dL (8.5-10.1)
[2020-11-27 09:34] LABS: BLOOD UREA NITROGEN 8.6 mg/dL (7-18)
[2020-11-27 09:35] LABS: BILIRUBIN,TOTAL 0.9 mg/dL (0.2-1)
[2020-11-27 09:36] LABS: CREATININE 0.7 mg/dL (0.55-1.3)
[2020-11-27 09:39] LABS: TOT PROT 5.9 g/dl (6.4-8.2)
[2020-11-27 09:41] LABS: ALBUMIN 3.2 g/dl (3.4-5.0)
[2020-11-27] MEDS: APIXABAN 5 MG TABLET PO SCH ×2 (11:24→21:10)
[2020-11-27] MEDS: GABAPENTIN 300 MG CAPSULE PO SCH ×2 (11:24→21:10)
[2020-11-27] MEDS: levETIRAcetam 250 MG TABLET PO SCH (21:10)
[2020-11-27] MEDS: INSULIN (LEVEMIR) 100 UNITS/ML UNITS SQ SCH (21:10)
[2020-11-28] MEDS: INSULIN SLIDING SCALE (NOVOLOG) 1 VIAL SQ SCH ×2 (06:25→12:10)
[2020-11-28] MEDS: LORazepam 2 MG/ML SDV VIAL IVPUSH PRN ×2 (06:43→13:30)
[2020-11-28 08:28] LABS: HEMATOCRIT 38.5 % (32.4-45.2); HEMOGLOBIN 12.4 GM/dL (10.7-15.3); MCHC 32.4 g/dl (32.0-36.0); MEAN CELL VOLUME 67.9 fl (80-96); MEAN PLT VOLUME 9.6 fl (7.5-11.1); PLATELET COUNT 145 K/MM3 (134-434); RBC 5.67 M/mm3 (3.60-5.2); RDW 14.6 % (11.6-15.6); WHITE BLOOD COUNT 4.9 K/mm3 (4.0-10.0)
[2020-11-28 08:51] LABS: BLOOD UREA NITROGEN 7.2 mg/dL (7-18)
[2020-11-28 08:54] LABS: CREATININE 0.7 mg/dL (0.55-1.3); PHOSPHOROUS 2.9 mg/dL (2.5-4.9)
[2020-11-28] MEDS: APIXABAN 5 MG TABLET PO SCH (09:42)
[2020-11-28] MEDS: levETIRAcetam 250 MG TABLET PO SCH (09:42)
[2020-11-28] MEDS: GABAPENTIN 300 MG CAPSULE PO SCH (09:42)
[2020-11-28 15:33] VITALS: BP 125/88; PULSE 100; TEMP 98.2
[2020-12-01 10:07] LABS: BENZODIAZEPINES, UR Negative ng/mL (Cutoff=200); CANNABINOID Negative (Cutoff=20); CANNABINOIDS, URINE See Final Results ng/mL (Cutoff=20); METHADONE, URINE Negative ng/mL (Cutoff=300); OPIATES, UR Negative ng/mL (Cutoff=300); PHENCYCLIDINE, URINE Negative ng/mL (Cutoff=25)
== END 2020-11-28 16:52 | disposition home or self-care (01) | DRG 53 ==
LOC: SUPCPDRO 09:46 → JER 09:46 → JERBED 18:17 → J5S 22:19
PROVIDERS: ADMIT Internal Medicine
DX: G40.909 Epilepsy, unspecified, not intractable, without status epilepticus (principal); E66.01 Morbid (severe) obesity due to excess calories; Z68.34 Body mass index [BMI] 34.0-34.9, adult; E11.9 Type 2 diabetes mellitus without complications; D68.59 Other primary thrombophilia; F17.210 Nicotine dependence, cigarettes, uncomplicated; I10 Essential (primary) hypertension; E78.5 Hyperlipidemia, unspecified; J45.909 Unspecified asthma, uncomplicated; R00.0 Tachycardia, unspecified; Z86.73 Personal history of transient ischemic attack (TIA), and cerebral infarction without residual deficits; Z86.718 Personal history of other venous thrombosis and embolism
CPT/HCPCS: 36415; 70450-TC; 70496-TC; 80048; 80053; 80307; 82962; 83735; 84100; 84443; 84703; 85025; 85027; 85610; 85730; 90732; 93005; 93010; 99285-25; C9803; G0008; G0009; Q2036; Q9967; U0003; U0005

== ENCOUNTER 2020-11-29 19:45 | Inpatient (IN) | payer OTHER ==
[2020-11-29 21:00] LABS: BASO % 0.2 % (0-2.0); EOS % 1.7 % (0-4.5); HEMATOCRIT 41.4 % (32.4-45.2); LYMPH % 39.9 % (8-40); MCH 21.4 pg (25.7-33.7); MCHC 31.5 g/dl (32.0-36.0); MEAN CELL VOLUME 68.1 fl (80-96); MEAN PLT VOLUME 10.5 fl (7.5-11.1); MONO % 8.2 % (3.8-10.2); PLATELET COUNT 173 K/MM3 (134-434); RBC 6.08 M/mm3 (3.60-5.2); RDW 14.5 % (11.6-15.6); WHITE BLOOD COUNT 6.6 K/mm3 (4.0-10.0)
[2020-11-29] MEDS ORDERED: levETIRAcetam 500 MG/5 ML INJECTION VIAL IVPB ONE ×2 (21:06→21:29)
[2020-11-29 21:21] LABS: ALBUMIN 3.8 g/dl (3.4-5.0); CALCIUM 9.3 mg/dL (8.5-10.1)
[2020-11-29 21:27] LABS: BILIRUBIN,TOTAL 0.3 mg/dL (0.2-1); TOT PROT 6.8 g/dl (6.4-8.2)
[2020-11-29 21:33] LABS: ANISOCYTOSIS 1+; MACROCYTOSIS 0; OVALOCYTE 1+; PLATELET ESTIMATE NORMAL; TARGET CELLS 1+
[2020-11-29] MEDS ORDERED: LORazepam 2 MG/ML SDV VIAL IVPUSH ONE (23:16)
[2020-11-29] MEDS ORDERED: LORazepam 2 MG/ML SDV VIAL ONE (23:18)
[2020-11-29 23:40] LABS: EPI CELLS 15 /uL (0-25.1); HYALINE CASTS 1 /uL (0-3.1); PH,URINE 5.5 (5.0-8.0); URINE APPEARANCE CLEAR; URINE BACTERIA 729 /uL (0-1359); URINE BILIRUBIN NEGATIVE (NEGATIVE); URINE COLOR YELLOW; URINE GLUCOSE (UA) 3+ (NEGATIVE); URINE KETONE TRACE (NEGATIVE); URINE LEUK ESTERASE NEGATIVE (NEGATIVE); URINE NITRITE NEGATIVE (NEGATIVE); URINE PROTEIN NEGATIVE (NEGATIVE); URINE RBC 5 /uL (0-23.9)
[2020-11-29 23:42] LABS: HCG,QUALITATIVE URINE Negative
[2020-11-29] MEDS ORDERED: ONDANSETRON 4 MG/2 ML VIAL IVPUSH ONE (23:50)
[2020-11-30] MEDS ORDERED: SENNOSIDES 8.6MG TABLET (FP) PO PRN (02:40)
[2020-11-30] MEDS ORDERED: DOCUSATE SODIUM 100 MG CAPSULE (FP) PO PRN (02:40)
[2020-11-30] MEDS ORDERED: ALBUTEROL SO4 HFA INHALER IH PRN (03:05)
[2020-11-30 06:46] LABS: BASO % 0.3 % (0-2.0); EOS % 1.9 % (0-4.5); HEMATOCRIT 39.1 % (32.4-45.2); HEMOGLOBIN 12.5 GM/dL (10.7-15.3); MCH 21.7 pg (25.7-33.7); MCHC 31.9 g/dl (32.0-36.0); MEAN PLT VOLUME 10.3 fl (7.5-11.1); MONO % 9.2 % (3.8-10.2); NEUT % 44.6 % (42.8-82.8); PLATELET COUNT 163 K/MM3 (134-434); RBC 5.74 M/mm3 (3.60-5.2); RDW 14.5 % (11.6-15.6)
[2020-11-30 07:05] LABS: ALBUMIN 3.5 g/dl (3.4-5.0); BLOOD UREA NITROGEN 10.1 mg/dL (7-18); CALCIUM 9.2 mg/dL (8.5-10.1); MAGNESIUM 1.9 mg/dL (1.8-2.4)
[2020-11-30 07:09] LABS: CREATININE 0.8 mg/dL (0.55-1.3); PHOSPHOROUS 3.5 mg/dL (2.5-4.9)
[2020-11-30 07:10] LABS: BILIRUBIN,TOTAL 0.3 mg/dL (0.2-1); TOT PROT 6.3 g/dl (6.4-8.2)
[2020-11-30] MEDS ORDERED: INSULIN SLIDING SCALE (NOVOLOG) 1 VIAL SQ ONE (08:03)
[2020-11-30] MEDS ORDERED: levETIRAcetam 500 MG/5 ML INJECTION VIAL IVPB ONE ×2 (08:09→08:10)
[2020-11-30] MEDS: INSULIN SLIDING SCALE (NOVOLOG) 1 VIAL SQ SCH ×4 (08:12→22:13)
[2020-11-30] MEDS ORDERED: APIXABAN 5 MG TABLET ONE (08:48)
[2020-11-30] MEDS: APIXABAN 5 MG TABLET PO SCH ×2 (09:06→21:25)
[2020-11-30] MEDS: levETIRAcetam 500 MG TABLET (FP) PO SCH ×2 (09:06→21:25)
[2020-11-30] MEDS: GABAPENTIN 300 MG CAPSULE PO SCH ×2 (09:06→21:25)
[2020-11-30] MEDS ORDERED: LORazepam 2 MG/ML SDV VIAL IVPUSH PRN (10:26)
[2020-11-30] MEDS ORDERED: INSULIN (NOVOLOG) ASPART 100 UNITS/ML 10ML VIAL ONE (22:07)
[2020-12-01 00:28] VITALS: BMI 33.7
[2020-12-01] MEDS: INSULIN SLIDING SCALE (NOVOLOG) 1 VIAL SQ SCH ×2 (07:19→12:04)
[2020-12-01] MEDS ORDERED: INSULIN (NOVOLOG) ASPART 100 UNITS/ML 10ML VIAL ONE ×2 (07:23→12:03)
[2020-12-01 08:53] LABS: HEMATOCRIT 38.3 % (32.4-45.2); HEMOGLOBIN 12.2 GM/dL (10.7-15.3); MCH 21.7 pg (25.7-33.7); MCHC 31.9 g/dl (32.0-36.0); MEAN PLT VOLUME 10.1 fl (7.5-11.1); PLATELET COUNT 172 K/MM3 (134-434); RBC 5.63 M/mm3 (3.60-5.2); RDW 14.5 % (11.6-15.6); WHITE BLOOD COUNT 7.6 K/mm3 (4.0-10.0)
[2020-12-01 09:25] LABS: BLOOD UREA NITROGEN 7.9 mg/dL (7-18)
[2020-12-01 09:28] LABS: CREATININE 0.8 mg/dL (0.55-1.3)
[2020-12-01] MEDS: levETIRAcetam 500 MG TABLET (FP) PO SCH (10:20)
[2020-12-01] MEDS: APIXABAN 5 MG TABLET PO SCH (10:20)
[2020-12-01] MEDS: GABAPENTIN 300 MG CAPSULE PO SCH (10:20)
[2020-12-01 11:54] VITALS: BP 111/73; PULSE 90; TEMP 98.2
== END 2020-12-01 14:52 | disposition home or self-care (01) | DRG 53 ==
LOC: JER 19:45 → JERBED 11-30 00:21 → J5S 11-30 18:49
PROVIDERS: ADMIT Internal Medicine; ATTEND Internal Medicine
DX: G40.909 Epilepsy, unspecified, not intractable, without status epilepticus (principal); J45.909 Unspecified asthma, uncomplicated; E66.9 Obesity, unspecified; Z68.33 Body mass index [BMI] 33.0-33.9, adult; Z86.718 Personal history of other venous thrombosis and embolism; E11.65 Type 2 diabetes mellitus with hyperglycemia
CPT/HCPCS: 36415; 70450-TC; 71045-TC-FY; 80048; 80053; 80177; 81003; 82962; 83735; 84100; 84146; 84436; 84443; 84703; 85025; 85027; 87077; 87086; 93005; 93010; 95816; 97116-GP; 97162-GP; 99285-25; C9803; U0003; U0005